=== PATIENT | female | born 1955 | race Caucasian/White ===

== ENCOUNTER → 2016-09-08 | Outpatient (CLI) | payer OTHER, MEDICAID | LOC: RAD 10:02 | PROVIDERS: ATTEND Nurse Practitioner Family | DX: Z12.31 Encounter for screening mammogram for malignant neoplasm of breast (principal) | CPT/HCPCS: 77067 ==

== ENCOUNTER → 2016-10-11 | Outpatient (CLI) | payer OTHER, MEDICAID ==
--- NOTE | 2016-10-11 14:27 | US ---
Examination: Unilateral right diagnostic mammogram and right breast ultrasound. Clinical history: Abnormal screening mammogram. Technique: Additional digital images of the right breast were obtained. Targeted right breast ultras ound was also obtained evaluating the upper medial aspect of the right breast. Comparison: 09/08/2016, 04/06/2009. Findings: The right breast is composed of scattered fibroglandular densities. There is a persistent small kidney-shaped 4 mm mass present in the upper medial aspect of the right breast in the middle depth, which is partially obscured by surrounding fibroglandular tissue, but ap pears to represent a small intramammary lymph node. Targeted right breast ultrasound evaluating the upper medial aspect of the right breast reveals a 7 mm oval, solid appearing, hypoechoic mass with an apparent small echogenic hilum, likely representin g a small intramammary lymph node, seen at the 1 o'clock position, correlating with findings on the mammogram. A followup right diagnostic mammogram and right breast ultrasound is recommended in 6 mon ths to ensure stability of the findings in the right breast. Impression: 1. Probably benign intramammary lymph node at the 1 o'clock position in the right breast, as describ ed above. BI-RADS category 3/III (THREE) - PROBABLY BENIGN FINDING; SHORT INTERVAL FOLLOW-UP SUGGESTED. Recommend a followup right diagnostic mammogram and right breast ultrasound in [address] ability of the findings in the right breast. Diagnostic CAD was utilized and reviewed. * 0 (ZERO) - ASSESSMENT INCOMPLETE; ADDITIONAL IMAGING IS NEEDED. * 0C - ASSESSMENT INCOMPLETE, NEEDS ADDITIONAL IMAGING EVALUATION AND/OR PRIOR MAMMOGRAMS FOR COMPAR SAMINA. * 1/1 (ONE) - NEGATIVE. * 2/II (TWO) - BENIGN FINDINGS. * 3/III (THREE) - PROBABLY BENIGN FINDING; SHORT INTERVAL FOLLOW-UP SUGGESTED. * 4/IV (FOUR) - SUSPICIOUS ABNORMALITY; BIOPSY SHOULD BE CONSIDERED. * 5/V - HIGHLY SUSPICIOUS OF MALIGNANCY; BIOPSY SHOULD BE PERFORMED. * 6/IV - KNOWN BIOPSY PROVEN MALIGNANCY-APPROPRIATE ACTION SHOULD BE TAKEN. A NEGATIVE X-RAY REPORT SHOULD NOT DELAY BIOPSY IF A DOMINANT OR CLINICALLY SUSPICIOUS MASS IS PRESENT; 4 TO 8 PERCENT OF CANCERS ARE NOT IDENTIFIED BY X-RAY. A NEGATIVE REPORT MAY REINFORCE THE CLINICAL IMPRESSION. ADENOSIS AND DENSE BREASTS MAY OBSCURE AN UNDERLYING NEOPLASM. Reported By:
== END ==
LOC: RAD 12:23
PROVIDERS: ATTEND Nurse Practitioner Family
DX: N63 Unspecified lump in breast (principal)
CPT/HCPCS: 76642; 77065

== ENCOUNTER → 2017-05-04 | Outpatient (CLI) | payer OTHER, MEDICAID ==
--- NOTE | 2017-05-04 15:49 | US ---
HISTORY: Six-month follow-up right breast nodule Right breast digital diagnostic mammography with CAD and right breast ultrasound. Comparison: April 06, 2009, September 08, 2016, and October 11, 2016 FINDINGS: Mammogram: ML and spot compression CC and MLO projections of the right breast were obtained. Scatter ed fibroglandular tissue is seen to be present without suspicious interval change. No new or develop ing dominant architectural distortion, mass or clustered microcalcifications can be observed to sugge st malignancy. There is a stable tiny 4 mm nodule noted along the upper medial quadrant. No skin thic kening or nipple retraction is appreciated. No pathological lymphadenopathy can be identified. Ultrasound: Multiple grayscale and color Doppler images of the 1 o'clock position right breast were o btained. Approximately 4 cm from the nipple, there is a vertically oriented 5 mm cystic appearing nod ule with slightly ill-defined borders but without posterior acoustical shadowing or internal Doppler flow favored to represent a complex cyst with internal debris and septation most compatible with a co mplex cyst. Previously described 7 mm nodule could represent the same lesion which actually represent ed a complex cyst as well. Alternatively, findings could reflect a new complex cyst and interval reso lution of the previously described lymph node. IMPRESSION: Probably benign right breast nodule for which an additional six-month follow-up is recom mended. The patient should undergo bilateral mammographic imaging at that time. ACR CATEGORY 3 - probably benign findings; short interval follow-up suggested. Diagnostic CAD was utilized and reviewed. * 0 (ZERO) - ASSESSMENT INCOMPLETE; ADDITIONAL IMAGING IS NEEDED. * 1/ (ONE) - NEGATIVE. * 2/II (TWO) - BENIGN FINDINGS. * 3/III (THREE) - PROBABLY BENIGN FINDING; SHORT INTERVAL FOLLOW-UP SUGGESTED. * 4/IV (FOUR) - SUSPICIOUS ABNORMALITY; BIOPSY SHOULD BE CONSIDERED. * 5/V - HIGHLY SUSPICIOUS OF MALIGNANCY; BIOPSY SHOULD BE PERFORMED. A NEGATIVE X-RAY REPORT SHOULD NOT DELAY BIOPSY IF A DOMINANT OR CLINICALLY SUSPICIOUS MASS IS PRESENT; 4 TO 8 PERCENT OF CANCERS ARE NOT IDENTIFIED BY X-RAY. A NEGA TIVE REPORT MAY REINFORCE THE CLINICAL IMPRESSION. ADENOSIS AND DENSE BREASTS MAY OBSCURE AN UNDERLY ING NEOPLASM. Reported By:
== END ==
LOC: RAD 13:34
PROVIDERS: ATTEND Nurse Practitioner Family
DX: N63.0 Unspecified lump in unspecified breast (principal)
CPT/HCPCS: 76642; 77065

== ENCOUNTER → 2017-07-04 | Outpatient (CLI) | payer OTHER, MEDICAID ==
--- NOTE | 2017-07-04 13:59 | MG ---
HISTORY: Right breast nodule, status post biopsy, check for clip placement Comparison: 05/04/2017 and priors Diagnostic right mammogram FINDINGS: CC and MLO projections of the right breast were obtained. There is a biopsy clip now present at appr oximately the 2 o'clock to 3 o'clock position of the right breast. Adjacent to the clip is a very tin y, partially obscured nodule. No significant architectural distortion, mass or clustered microcalcifi cations can be observed to suggest malignancy. No skin thickening or nipple retraction is appreciate d. No pathological lymphadenopathy can be identified. IMPRESSION: 1. Biopsy clip present at approximately the 2 o'clock to 3 o'clock position of the right breast. Plea se see above discussion ACR CATEGORY 2 - benign findings Bilateral mammogram recommended in September of 2017 Diagnostic CAD was utilized and reviewed. * 0 (ZERO) - ASSESSMENT INCOMPLETE; ADDITIONAL IMAGING IS NEEDED. * 1/ (ONE) - NEGATIVE. * 2/II (TWO) - BENIGN FINDINGS. * 3/III (THREE) - PROBABLY BENIGN FINDING; SHORT INTERVAL FOLLOW-UP SUGGESTED. * 4/IV (FOUR) - SUSPICIOUS ABNORMALITY; BIOPSY SHOULD BE CONSIDERED. * 5/V - HIGHLY SUSPICIOUS OF MALIGNANCY; BIOPSY SHOULD BE PERFORMED. A NEGATIVE X-RAY REPORT SHOULD NOT DELAY BIOPSY IF A DOMINANT OR CLINICALLY SUSPICIOUS MASS IS PRESENT; 4 TO 8 PERCENT OF CANCERS ARE NOT IDENTIFIED BY X-RAY. A NEGA TIVE REPORT MAY REINFORCE THE CLINICAL IMPRESSION. ADENOSIS AND DENSE BREASTS MAY OBSCURE AN UNDERLY ING NEOPLASM. Reported By:
== END ==
LOC: RAD 12:37
PROVIDERS: ATTEND Surgery
DX: N63.10 Unspecified lump in the right breast, unspecified quadrant (principal); Z98.890 Other specified postprocedural states; R92.8 Other abnormal and inconclusive findings on diagnostic imaging of breast
CPT/HCPCS: 77065

== ENCOUNTER → 2017-07-24 | Outpatient (CLI) | payer OTHER, MEDICAID ==
--- NOTE | 2017-07-24 12:13 | RAD ---
History: Left foot and ankle pain Study: Left foot three views Findings: Three views of the left foot demonstrate normal alignment and joint spacing. No fracture or bony destructive process is identified. There is a moderate size plantar calcaneal spur are. Soft ti ssue swelling over the dorsum of the foot in involving the ankle and distal leg is noted. Impression: Soft tissue swelling with no acute osseous abnormality. Reported By:
--- NOTE | 2017-07-24 12:14 | RAD ---
HISTORY: Foot and ankle pain. Status post trauma under Easter weekend Study: Left ankle: Three views Comparison: None Findings: Mild osteopenia is noted. Mild irregularity of both the medial and lateral malleoli is noted suggest ing remote trauma. Moderate soft tissue swelling is noted medially. A tiny osteochondral defect is present involving the medial talar dome. Otherwise the the tibial plafond and talar dome are intact. Mild degenerative changes noted in the ankle joint proper. A moderate size calcaneal spurs noted. Minimal spurring is noted in the midfoot. Mild enthesopathy is noted at the Achilles tendon inserti on. IMPRESSION: 1. Tiny osteochondral defect involving the medial talar dome. 2. Soft tissue swelling along the medial malleolus. 3. No acute bony abnormalities are identified. 4. Degenerative changes noted. Reported By:
== END ==
LOC: RAD 11:35
PROVIDERS: ATTEND Nurse Practitioner Family
DX: M79.672 Pain in left foot (principal); M79.89 Other specified soft tissue disorders
CPT/HCPCS: 73610; 73630

== ENCOUNTER 2020-01-23 16:13 | Inpatient (IN) ==
[~2020-01-23 16:13] MED LIST: DIPRIVAN VIAL ONE; NORCURON INJ 10 MG VIAL ONE; QUELICIN (OR ANECTINE) ONE; VERSED ONE
[2020-01-23] MEDS ORDERED: ACTEMRA 400 MG in NS 100 ML IV 80 ML IV SCH (18:48)
[2020-01-23] MEDS ORDERED: NS 1/2 1,000 ML IV 1,000 ML IV ONE (20:48)
[2020-01-23] MEDS: PULMICORT NEB TX 0.5 MG NEB SCH (21:17)
[2020-01-23] MEDS: DUONEB 0.5 MG/3 MG (3 mL) NEB SCH (21:17)
[2020-01-23] MEDS: NS 1/2 1,000 ML IV 1,000 ML IV SCH (22:00)
[2020-01-23] MEDS: ROBITUSSIN DM PO SCH (22:11)
[2020-01-23] MEDS: VSL#3 PO SCH (23:00)
[2020-01-23] MEDS ORDERED: REMDESIVIR 200 MG in NS 250 ML IV 250 ML IV SCH (23:00)
[2020-01-23] MEDS: TUSSIONEX PENNKINETIC SUSP PO PRN (23:00)
[2020-01-23] MEDS: ZINC SULFATE PO SCH (23:00)
[2020-01-23] MEDS: SOLU-Medrol 40 MG VIAL IVP SCH (23:30)
[2020-01-24] MEDS: LEVAQUIN PREMIX IV 500 MG 500 MG/100 ML BAG IV SCH (02:45)
[2020-01-24] MEDS: SOLU-Medrol 40 MG VIAL IVP SCH ×3 (05:30→21:40)
[2020-01-24 05:37] VITALS: BMI 49.6
[2020-01-24 05:59] LABS: ABG BASE EXCESS 1.4 mmol/L (-2.0-2.0); ABG HCO3 27.2 mmol/L (22-26)
[2020-01-24 06:00] LABS: ABG ALLEN TEST POS
[2020-01-24 06:05] LABS: ALBUMIN 2.7 g/dL (3.4-5.0); BASOPHILS % (AUTO) 0.1 % (0.2-1.0); CALCIUM 8.8 mg/dL (8.5-10.1); CARBON DIOXIDE 27.2 mmol/L (21-32); CREATININE 1.46 mg/dL (0.55-1.02); HEMATOCRIT 43.2 % (36.0-47.0); HEMOGLOBIN 14.2 g/dL (12.0-16.0); LYMPHOCYTES # (AUTO) 0.3 X10^3/uL (1.3-2.9); LYMPHOCYTES % (AUTO) 5.9 % (21.0-51.0); MEAN CORPUSCULAR HEMOGLOBIN 29.3 pg (27.0-34.0); MEAN CORPUSCULAR HGB CONC 32.9 g/dL (33.0-35.0); MEAN CORPUSCULAR VOLUME 88.9 fL (80.0-100.0); MEAN PLATELET VOLUME 8.2 fL (7.4-11.0); MONOCYTES # (AUTO) 0.1 x10^3/uL (0.3-0.8); MONOCYTES % (AUTO) 2.2 % (0.0-13.0); NEUTROPHILS # (AUTO) 5.3 x10^3/uL (2.2-4.8); NEUTROPHILS % (AUTO) 91.8 % (42.0-75.0); PLATELET COUNT 176 X10^3/uL (150.0-450.0); RED BLOOD COUNT 4.86 X10^6/uL (3.5-5.4); RED CELL DISTRIBUTION WIDTH 14.5 % (11.6-16.5); TOTAL PROTEIN 6.9 g/dL (6.4-8.2); WHITE BLOOD COUNT 5.8 X10^3/uL (3.6-10.0)
[2020-01-24 06:06] LABS: COR CA(FOR HYPOALB) 9.8 mg/dL (8.5-10.1)
[2020-01-24 06:34] LABS: BAND NEUTROPHILS % 2 % (0-10); PLATELET MORPHOLOGY COMMENT NORMAL (NORMAL)
[2020-01-24] MEDS ORDERED: ACTEMRA 400 MG in NS 100 ML IV 80 ML IV SCH (09:00)
--- NOTE | 2020-01-24 09:43 | DR.H&P ---
H&P - History & Physical for Day of: H&P Date: 01/23/20 - Chief Complaint Chief Complaint: FEVER, COUGH, SOB, WEAKNESS, NAUSEA - History of Present Illness History of Present Illness: IS A 64 YEAR OLD PATIENT OF [facility]. CHERYL CONSULTED US FOR DIRECT ADMISSION DUE TO PATIENT HAVING SYMPTOMS OF FEVER, PERSISTENT COUGH, SHORTNESS OF BREATH, WEAKNESS, AND NAUSEA. SYMPTOMS STARTED APPROXIMATELY THREE WEEKS PRIOR. SHE TESTED POSITIVE FOR COVID-19 TWO DAYS PRIOR TO ADMISSION. PRIOR TO POSITIVE COVID TEST, PATIENT HAD BEEN TREATED WITH LEVAQUIN 500MG PO DAILY X 10 DAYS, THEN A Z-PACK, MEDROL DOSEPACK, FLONASE, ZOFRAN, AND FIORCET. SHE DENIES IMPROVEMENT IN SYMPTOMS DESPITE COMPLIANCE WITH MEDICATIONS. ON EXAMINATION, AUSCULTATION OF LUNG GAYLE REVEALED SCATTERED WHEEZING THROUGHOUT. HER VITALS ON ADMISSION WERE 98.3-107-31-86%ROOM AIR- 109/59. SHE WAS PLACED ON SUPPLEMENTAL OXYGEN AND HER SATURATIONS DID INCREASE TO 95%. LABS WERE OBTAINED. ABNORMAL LAB VALUES INCLUDE THE FOLLOWING: BUN 27, CREATININE 1.46, FERRITIN 287, CRP 121.30, ALBUMIN 3.1. AN ABG WAS OBTAINED AND REVEALED: PH 7.410, PC02 40, P02 68, HC03 25.4, 02 SAT 93, FI02 21.0. BLOOD AND SPUTUM CULTURES WERE SET UP. A CHEST XRAY WAS OBTAINED AND REVEALED: The trachea is midline. The cardiac silhouette is unremarkable. Interstitial infiltrates are seen in the right upper lobe left mid and left mid lateral lung field suspicious for atypical i.e. viral pneumonia. There is no effusion. The bony thorax is unremarkable. SHE WAS STARTED ON 1/2NS AT [facility], LEVAQUIN 500MG IV DAILY, REMDESIVIR 200MG IV X 1 DOSE, THEN 100MG IV DAILY, DUONEBS QID, PULMICORT NEBS BID, TUSSIONEX 5ML PO Q12H PRN, ROBITUSSIN DM 10 ML PO QID, PROBIOTICS DAILY, SOLU-MEDROL 80MG IV Q8H, ZINC 220MG PO DAILY. SHE RECEIVED ACTEMRA 400MG IV X 1 DOSE. SHE WAS STARTED ON SUPPLEMENTAL OXYGEN VIA VENTI-MASK. OTHERWISE, WE PLAN TO FOLLOW UP WITH AM LABS AND CHEST XRAY AND CONTINUE TO MONITOR. TIME SPENT ON CLINICAL ASSESSMENT, REVIEWING LABS AND IMAGING, DECISION MAKING, AND DOCUMENTATION GREATER THAN 74 MINUTES. - Past Medical History Past Medical History: Anxiety, Arthritis, Gout, Hypertension - Past Surgical History Surgical History: Ortho Surgery, Tonsillectomy - Family History Family Medical History: Diabetes Mellitus, Coronary Artery Disease, Hypertension - Social History Does patient currently use any type of tobacco product: No Have you used tobacco products in the last 12 months: No Does any household member use tobacco: No Alcohol Use: None Drug Use: None - Medications Home Medications: Penicillins Allergy (Verified 01/23/20 20:30) Sulfa (Sulfonamide Antibiotics) [SULFA] Allergy (Verified 01/23/20 20:30) - Review of Systems Constitutional: Fever, Weakness Eyes: No Symptoms Reported ENT: No Symptoms Reported Respiratory: See HPI, Cough, Shortness of Breath, Wheezing Cardiovascular: No Symptoms Reported Gastrointestinal: No Symptoms Reported Genitourinary: No Symptoms Reported Musculoskeletal: No Symptoms Reported Skin: No Symptoms Reported Neurological: Weakness - Physical Exam Vital Signs: Temperature 98.8 F Pulse Rate 87 Respiratory Rate 35 Blood Pressure 140/70 O2 Sat by Pulse Oximetry 92 Oriented: Normal Eyes: Normal Ear: Normal Nose: Normal Throat: Normal Respiratory: Diminished Throughout, Wheezes Throughout Cardiovascular: Normal : Normal Auscultation: Bowel Sounds: Normal Palpation: Normal Tenderness: Normal Skin: Normal Musculoskeletal: Normal Psychiatric: Normal Mood Description: Calm Affect: Normal Speech Pattern: Clear - Assessment/Plan (1) Pneumonia Qualifiers: Pneumonia type: due to unspecified organism Laterality: unspecified laterality Lung location: unspecified part of lung Qualified Code(s): J18.9 - Pneumonia, unspecified organism Status: Acute Plan: ADMIT, 1/2NS AT [facility], LEVAQUIN 500MG IV DAILY, REMDESIVIR 200MG IV X 1 DOSE, THEN 100MG IV DAILY, DUONEBS QID, PULMICORT NEBS BID, TUSSIONEX 5ML PO Q12H PRN, ROBITUSSIN DM 10 ML PO QID, PROBIOTICS DAILY, SOLU-MEDROL 80MG IV Q8H, ZINC 220MG PO DAILY. SHE RECEIVED ACTEMRA 400MG IV X 1 DOSE (2) COVID-19 Status: Acute - Allergies Allergies/Adverse Reactions: Allergies Allergy/AdvReac Type Severity Reaction Status Date / Time Penicillins Allergy Verified 01/23/20 20:30 Sulfa (Sulfonamide Allergy Verified 01/23/20 20:30 Antibiotics) [SULFA]
[2020-01-24] MEDS: DUONEB 0.5 MG/3 MG (3 mL) NEB SCH ×4 (09:50→21:50)
[2020-01-24] MEDS: PULMICORT NEB TX 0.5 MG NEB SCH ×2 (09:50→21:50)
[2020-01-24] MEDS: ROBITUSSIN DM PO SCH ×4 (09:54→21:40)
[2020-01-24] MEDS: NS 1/2 1,000 ML IV 1,000 ML IV SCH ×2 (09:54→22:00)
[2020-01-24] MEDS: VSL#3 PO SCH (09:54)
[2020-01-24] MEDS: ZINC SULFATE PO SCH (09:55)
[2020-01-24 10:27] LABS: CKMB % 0.7 % (<4); CREATINE KINASE 140 Units/L (26-192); TROPONIN I < 0.02 ng/mL (0-1.5)
[2020-01-24] MEDS ORDERED: PHENERGAN SYRUP PLAIN 6.25MG/5ML PO PRN (10:54)
[2020-01-24] MEDS: PROTONIX TAB 40 MG PO SCH (11:53)
[2020-01-24] MEDS: ZESTRIL TAB 10 MG PO SCH (11:53)
--- NOTE | 2020-01-24 12:33 | RAD ---
HISTORYSOBSTUDYCHEST, 1 VIEWCOMPARISONTwo-view chest January 23, 2020.FINDINGSThe trachea is midline. The cardiac silhouette is unremarkable. The interstitial infiltrate in the right upper lobe persists with mild increase in the density is well as volume loss in the right upper lobe. There is also patchy infiltrate in the left lateral lower lung field. There is no significant change when compared to yesterdays study. The bony thorax is unremarkable.IMPRESSIONBilateral patchy infiltrates right upper lobe and peripherally in the left lower lobe suspicious for atypical pneumonia. There is no significant interval change compared to yesterday study.Electronically signed by: DONTRELL WILSON (Jan 24, 2020 12:30:58)
[2020-01-24] MEDS: REMDESIVIR 100 MG in NS 250 ML IV 250 ML IV SCH (21:00)
[2020-01-24] MEDS: TUSSIONEX PENNKINETIC SUSP PO PRN (21:40)
[2020-01-24] MEDS: LUMIGAN OPHTH AFFEYE SCH (21:40)
[2020-01-25] MEDS: NORCO 5/325 MG TAB PO PRN (01:04)
[2020-01-25] MEDS: LEVAQUIN PREMIX IV 500 MG 500 MG/100 ML BAG IV SCH (03:30)
[2020-01-25] MEDS ORDERED: NS 1/2 1,000 ML IV 1,000 ML IV ONE (03:47)
[2020-01-25] MEDS: NS 1/2 1,000 ML IV 1,000 ML IV SCH ×2 (04:50→13:54)
[2020-01-25 05:23] LABS: BASOPHILS % (AUTO) 0 % (0.2-1.0); HEMATOCRIT 43.7 % (36.0-47.0); LYMPHOCYTES # (AUTO) 0.4 X10^3/uL (1.3-2.9); LYMPHOCYTES % (AUTO) 5.8 % (21.0-51.0); MEAN CORPUSCULAR HEMOGLOBIN 28.7 pg (27.0-34.0); MEAN CORPUSCULAR VOLUME 89.7 fL (80.0-100.0); MEAN PLATELET VOLUME 8.3 fL (7.4-11.0); MONOCYTES # (AUTO) 0.4 x10^3/uL (0.3-0.8); MONOCYTES % (AUTO) 5.8 % (0.0-13.0); NEUTROPHILS # (AUTO) 6.3 x10^3/uL (2.2-4.8); NEUTROPHILS % (AUTO) 88.4 % (42.0-75.0); PLATELET COUNT 186 X10^3/uL (150.0-450.0); RED BLOOD COUNT 4.88 X10^6/uL (3.5-5.4); RED CELL DISTRIBUTION WIDTH 14.8 % (11.6-16.5); WHITE BLOOD COUNT 7.1 X10^3/uL (3.6-10.0)
[2020-01-25 05:37] LABS: ALBUMIN 2.7 g/dL (3.4-5.0); CALCIUM 8.9 mg/dL (8.5-10.1); CARBON DIOXIDE 25.2 mmol/L (21-32); COR CA(FOR HYPOALB) 9.9 mg/dL (8.5-10.1); CREATININE 1.43 mg/dL (0.55-1.02); TOTAL PROTEIN 7.4 g/dL (6.4-8.2)
[2020-01-25] MEDS: SOLU-Medrol 40 MG VIAL IVP SCH ×3 (06:05→21:25)
--- NOTE | 2020-01-25 06:14 | RAD ---
HISTORYSOB, COVID-19, PNEUMONIASTUDYCHEST, 1 VIEWCOMPARISONOne day prior.TECHNIQUEAP view of the chestFINDINGSCardiac silhouette stably enlarged. Worsened bilateral airspace disease. No pleural effusion or pneumothorax.IMPRESSIONWorsened bilateral airspace disease consistent with covid 19 which has an upper lobe predominance.Electronically signed by: Lui Connelly (Jan 25, 2020 06:12:56)
[2020-01-25] MEDS: PROTONIX TAB 40 MG PO SCH (09:26)
[2020-01-25] MEDS: ROBITUSSIN DM PO SCH ×4 (09:26→21:25)
[2020-01-25] MEDS: ZINC SULFATE PO SCH (09:27)
[2020-01-25] MEDS: ZESTRIL TAB 10 MG PO SCH (09:27)
[2020-01-25] MEDS: VSL#3 PO SCH (09:27)
[2020-01-25] MEDS: DUONEB 0.5 MG/3 MG (3 mL) NEB SCH ×4 (09:50→21:02)
[2020-01-25] MEDS: PULMICORT NEB TX 0.5 MG NEB SCH ×2 (09:50→21:02)
--- NOTE | 2020-01-25 11:28 | PCM.PROG ---
Progress Note Progress Note for Day of Date of Exam: 01/25/20 Subjective Subjective: PT IS A 64 Y/O F ADMITTED FOR COVID19 PNEUMONIA(POSITIVE 01/20) AND HYPOXIA. THIS MORNING SHE IS SITTING IN CHAIR ON 3L NC. SHE REPORTS BEING ACTIVE THIS MORNING IN HER ROOM. SHE STATES THAT THE STEROIDS SHE IS RECEIVING IS MAKING HER VERY ANXIOUS. LABS/IMAGING: WBC 7.1, HGB 14, PLT 186, NA 139, K 4.1, CR 1.43, GLUC 140. CRP 134>80, CXR: Worsened bilateral airspace disease consistent with covid 19 which has an upper lobe predominance. TREATMENT COURSE INCLUDES:1/2NS AT [facility], LEVAQUIN 500MG IV DAILY, REMDESIVIR 200MG IV X 1 DOSE, THEN 100MG IV DAILY, DUONEBS QID, PULMICORT NEBS BID, TUSSIONEX 5ML PO Q12H PRN, ROBITUSSIN DM 10 ML PO QID, PROBIOTICS DAILY, SOLU-MEDROL 80MG IV Q8H, ZINC 2 20MG PO DAILY. SHE RECEIVED ACTEMRA 400MG IV X 1 DOSE. WILL CONTINUE TREATMENT AND ADD ON XANAX PRN FOR ANXIETY. CONTINUE TO MONITOR AND FOLLOW UP LABS/IMAGING IN THE MORNING. Past Medical Family Social History Past Med/Fam/Surg Hx: No changes since H&P Allergies: Allergies Penicillins Allergy (Verified 01/23/20 20:30) Sulfa (Sulfonamide Antibiotics) [SULFA] Allergy (Verified 01/23/20 20:30) Review of Systems ROS: No change since H&P Vital Signs and I&O's Vital Signs: Temperature 97.2 F Pulse Rate 96 Respiratory Rate 26 Blood Pressure 130/65 O2 Sat by Pulse Oximetry 91 Intake and Output: Intake & Output 01/22/20 01/23/20 01/24/20 01/25/20 23:59 23:59 23:59 23:59 Intake Total 260 / 260 4710 / 4710 647 / 647 Balance 260 / 260 4710 / 4710 647 / 647 Physical Exam Oriented: Normal Eyes: Normal Ear: Normal Nose: Normal Throat: Normal Respiratory: Diminished Cardiovascular: Normal : Normal Auscultation: Bowel Sounds: Normal Tenderness: Normal Skin: Normal Musculoskeletal: Normal Psychiatric: Normal Mood Description: Calm Affect: Normal Speech Pattern: Clear and Appropriate Laboratory and Diagnostics Result Diagrams: 01/25/20 04:45 01/25/20 04:45 Labs: 01/23/20 21:18 Sputum - Expectorated Sputum Sputum Culture - Final 01/23/20 21:18 Sputum - Expectorated Sputum - Final 01/23/20 19:25 Blood Blood Culture - Preliminary 01/23/20 19:15 Blood Blood Culture - Preliminary Laboratory WBC 7.1 X10^3/uL (3.6-10.0) 01/25/20 04:45 RBC 4.88 X10^6/uL (3.5-5.4) 01/25/20 04:45 Hgb 14.0 g/dL (12.0-16.0) 01/25/20 04:45 Hct 43.7 % (36.0-47.0) 01/25/20 04:45 MCV 89.7 fL (80.0-100.0) 01/25/20 04:45 MCH 28.7 pg (27.0-34.0) 01/25/20 04:45 MCHC 32.0 g/dL (33.0-35.0) L 01/25/20 04:45 RDW 14.8 % (11.6-16.5) 01/25/20 04:45 Plt Count 186 X10^3/uL (150.0-450.0) 01/25/20 04:45 Plt Count Comment Adequate (ADEQUATE) 01/24/20 04:50 MPV 8.3 fL (7.4-11.0) 01/25/20 04:45 Neut % (Auto) 88.4 % (42.0-75.0) H 01/25/20 04:45 Lymph % (Auto) 5.8 % (21.0-51.0) L 01/25/20 04:45 Carroll % (Auto) 5.8 % (0.0-13.0) 01/25/20 04:45 Eos % (Auto) 0.0 % (0.9-2.9) L 01/25/20 04:45 Baso % (Auto) 0 % (0.2-1.0) L 01/25/20 04:45 Neut # (Auto) 6.3 x10^3/uL (2.2-4.8) H 01/25/20 04:45 Lymph # (Auto) 0.4 X10^3/uL (1.3-2.9) L 01/25/20 04:45 Carroll # (Auto) 0.4 x10^3/uL (0.3-0.8) 01/25/20 04:45 Eos # (Auto) 0.0 x10^3/uL (0.0-0.2) 01/25/20 04:45 Baso # (Auto) 0.0 X10^3/uL (0.0-0.1) 01/25/20 04:45 Absolute Nucleated RBC 0.1 /100WBC 01/25/20 04:45 Total Counted 100 01/24/20 04:50 Neutrophils % (Manual) 93 % (39-76) H 01/24/20 04:50 Band Neutrophils % 2 % (0-10) 01/24/20 04:50 Lymphocytes % (Manual) 5 % (13-43) L 01/24/20 04:50 Plt Morphology Comment Normal (NORMAL) 01/24/20 04:50 RBC Morphology Normal (NORMAL) 01/24/20 04:50 Sample Site Lrad 01/24/20 05:56 ABG pH 7.370 (7.35-7.45) 01/24/20 05:56 ABG pCO2 47.0 mmHg (35.0-45.0) H 01/24/20 05:56 ABG pO2 73.0 mmHg (80.0-100.0) L 01/24/20 05:56 ABG HCO3 27.2 mmol/L (22-26) H 01/24/20 05:56 ABG O2 Saturation 94.0 % (90-100) 01/24/20 05:56 ABG Base Excess 1.4 mmol/L (-2.0-2.0) 01/24/20 05:56 Durga Test Pos 01/24/20 05:56 A-a Gradient 118.0 mmHg 01/24/20 05:56 FiO2 35.0 01/24/20 05:56 Blood Gas Comments Janessa abg well-mtf 01/24/20 05:56 Sodium 139 mmol/L (136-145) 01/25/20 04:45 Corrected Sodium 140 mmol/L (136-145) 01/25/20 04:45 Potassium 4.1 mmol/L (3.5-5.1) 01/25/20 04:45 Chloride 103 mmol/L (98-107) 01/25/20 04:45 Carbon Dioxide 25.2 mmol/L (21-32) 01/25/20 04:45 BUN 32 mg/dL (7-18) H 01/25/20 04:45 Creatinine 1.43 mg/dL (0.55-1.02) H 01/25/20 04:45 Est GFR (MDRD) Af Amer 47 (>60) L 01/25/20 04:45 Est GFR (MDRD) Non-Af 39 (>60) L 01/25/20 04:45 Glucose 140 mg/dL (65-99) H 01/25/20 04:45 Calcium 8.9 mg/dL (8.5-10.1) 01/25/20 04:45 Corrected Calcium 9.9 mg/dL (8.5-10.1) 01/25/20 04:45 Ferritin 524 ng/mL (8-252) H 01/25/20 04:45 Total Bilirubin 0.20 mg/dL (0.2-1.0) 01/25/20 04:45 AST 30 Units/L (15-37) 01/25/20 04:45 ALT 25 Units/L (12-78) 01/25/20 04:45 Alkaline Phosphatase 85 Units/L (46-116) 01/25/20 04:45 Creatine Kinase 140 Units/L (26-192) 01/24/20 05:10 CK-MB (CK-2) 1.0 ng/mL (0-4.0) 01/24/20 05:10 CK/CKMB % Calc 0.7 % (<4) 01/24/20 05:10 Troponin I < 0.02 ng/mL (0-1.5) 01/24/20 05:10 C-Reactive Protein 80.30 mg/L (0-3.0) H 01/25/20 04:45 B-Natriuretic Peptide 14.9 pg/mL (0-79) 01/24/20 05:10 Total Protein 7.4 g/dL (6.4-8.2) 01/25/20 04:45 Albumin 2.7 g/dL (3.4-5.0) L 01/25/20 04:45 Globulin 4.7 g/dL (2.5-4.5) H 01/25/20 04:45 Albumin/Globulin Ratio 0.6 Ratio (1.1-2.1) L 01/25/20 04:45 Plan (1) Pneumonia: Status: Acute Qualifiers: Laterality: unspecified laterality Lung location: unspecified part of lung Pneumonia type: due to unspecified organism Qualified Code(s): J18.9 - Pneumonia, unspecified organism Plan: ADMIT, 1/2NS AT [facility], LEVAQUIN 500MG IV DAILY, REMDESIVIR 200MG IV X 1 DOSE, THEN 100MG IV DAILY, DUONEBS QID, PULMICORT NEBS BID, TUSSIONEX 5ML PO Q12H PRN, ROBITUSSIN DM 10 ML PO QID, PROBIOTICS DAILY, SOLU-MEDROL 80MG IV Q8H, ZINC 220MG PO DAILY. SHE RECEIVED ACTEMRA 400MG IV X 1 DOSE (2) COVID-19: Status: Acute
[2020-01-25] MEDS: XANAX PO PRN (14:17)
[2020-01-25] MEDS: REMDESIVIR 100 MG in NS 250 ML IV 250 ML IV SCH (20:30)
[2020-01-25] MEDS: LUMIGAN OPHTH AFFEYE SCH (21:25)
[2020-01-26] MEDS: LEVAQUIN PREMIX IV 500 MG 500 MG/100 ML BAG IV SCH (00:34)
[2020-01-26] MEDS: NS 1/2 1,000 ML IV 1,000 ML IV SCH ×2 (01:50→17:13)
[2020-01-26] MEDS: SOLU-Medrol 40 MG VIAL IVP SCH ×3 (05:07→21:08)
[2020-01-26] MEDS: XANAX PO PRN ×2 (05:35→21:11)
--- NOTE | 2020-01-26 06:42 | RAD ---
HISTORYSOBSTUDYPortable AP [id number] heart size. Persistent but improved bilateral airspace disease. No new areas of consolidation, pneumothorax or pleural fluid.IMPRESSIONSlight interval improvement in aeration of the lungs with decreasing infiltrates/pneumonia.Electronically signed by: NATHANIEL ALMEIDA (Jan 26, 2020 06:40:33)
[2020-01-26 06:43] LABS: BASOPHILS % (AUTO) 0.2 % (0.2-1.0); HEMATOCRIT 44.9 % (36.0-47.0); HEMOGLOBIN 14.6 g/dL (12.0-16.0); LYMPHOCYTES # (AUTO) 0.3 X10^3/uL (1.3-2.9); MEAN CORPUSCULAR HEMOGLOBIN 29.1 pg (27.0-34.0); MEAN CORPUSCULAR HGB CONC 32.6 g/dL (33.0-35.0); MEAN CORPUSCULAR VOLUME 89.1 fL (80.0-100.0); MEAN PLATELET VOLUME 8.1 fL (7.4-11.0); MONOCYTES # (AUTO) 0.3 x10^3/uL (0.3-0.8); MONOCYTES % (AUTO) 3.3 % (0.0-13.0); NEUTROPHILS # (AUTO) 9.7 x10^3/uL (2.2-4.8); NEUTROPHILS % (AUTO) 93.5 % (42.0-75.0); PLATELET COUNT 192 X10^3/uL (150.0-450.0); RED BLOOD COUNT 5.04 X10^6/uL (3.5-5.4); RED CELL DISTRIBUTION WIDTH 14.6 % (11.6-16.5); WHITE BLOOD COUNT 10.4 X10^3/uL (3.6-10.0)
[2020-01-26 06:54] LABS: ALANINE AMINOTRANSFERASE 27 Units/L (12-78); ALBUMIN 2.9 g/dL (3.4-5.0); ALKALINE PHOSPHATASE 82 Units/L (46-116); ASPARTATE AMINO TRANSFERASE 46 Units/L (15-37); BLOOD UREA NITROGEN 27 mg/dL (7-18); CALCIUM 9.4 mg/dL (8.5-10.1); CARBON DIOXIDE 26.4 mmol/L (21-32); CHLORIDE 104 mmol/L (98-107); COR CA(FOR HYPOALB) 10.3 mg/dL (8.5-10.1); COR NA(FOR HYPERGLY) 140 mmol/L (136-145); CREATININE 1.16 mg/dL (0.55-1.02); SODIUM 139 mmol/L (136-145); TOTAL PROTEIN 7.5 g/dL (6.4-8.2); eGFR NON BLACK RACES 50 (>60)
[2020-01-26 07:21] LABS: BAND NEUTROPHILS % 6 % (0-10)
[2020-01-26 07:22] LABS: PLATELET MORPHOLOGY COMMENT NORMAL (NORMAL)
[2020-01-26] MEDS: ROBITUSSIN DM PO SCH ×4 (09:30→20:52)
[2020-01-26] MEDS: VSL#3 PO SCH (09:30)
[2020-01-26] MEDS: PROTONIX TAB 40 MG PO SCH (09:30)
[2020-01-26] MEDS: ZESTRIL TAB 10 MG PO SCH (09:30)
[2020-01-26] MEDS: ZINC SULFATE PO SCH (09:30)
[2020-01-26] MEDS: DUONEB 0.5 MG/3 MG (3 mL) NEB SCH ×4 (09:46→20:45)
[2020-01-26] MEDS: PULMICORT NEB TX 0.5 MG NEB SCH ×2 (09:46→20:45)
--- NOTE | 2020-01-26 10:19 | PCM.PROG ---
Progress Note Progress Note for Day of Date of Exam: 01/26/20 Subjective Subjective: PT IS A 64 Y/O F ADMITTED FOR COVID19 PNEUMONIA(POSITIVE 01/20) AND HYPOXIA. SHE IS RESTING COMFORTABLY IN CHAIR THIS MORNING. SHE REPORTS FEELING A LITTLE SHORT OF BREATH OVERNIGHT AND WITH AMBULATION. OVERNIGHT HER O2 SAT DID DROP TO MID 80S AND SHE WAS PLACED ON VENTURI MASK. THIS MORNING SHE IS BACK ON 4L NC. LABS/IMAGING: WBC 10.4, HGB 14.6, PLT 192, NA 139, K 4.7, CR 1.16, GLUC 139. CRP 80>37, CXR: Slight interval improvement in aeration of the lungs with decreasing infiltrates/pneumonia. TREATMENT COURSE INCLUDES:1/2NS AT [facility], LEVAQUIN 500MG IV DAILY, REMDESIVIR 200MG IV X 1 DOSE, THEN 100MG IV DAILY, DUONEBS QID, PULMICORT NEBS BID, TUSSIONEX 5ML PO Q12H PRN, ROBITUSSIN DM 10 ML PO QID, PROBIOTICS DAILY, SOLU-MEDROL 80MG IV Q8H, ZINC 220MG PO DAILY. SHE RECEIVED ACTEMRA 400MG IV X 1 DOSE. WEAN SUPPLEMENTAL O2 TOLERATED. CONTINUE TO MONITOR AND FOLLOW UP LABS/IMAGING IN THE MORNING. Past Medical Family Social History Past Med/Fam/Surg Hx: No changes since H&P Allergies: Allergies Penicillins Allergy (Verified 01/23/20 20:30) Sulfa (Sulfonamide Antibiotics) [SULFA] Allergy (Verified 01/23/20 20:30) Review of Systems ROS: No change since H&P Vital Signs and I&O's Vital Signs: Temperature 98 F Pulse Rate 93 Respiratory Rate 26 Blood Pressure 160/71 O2 Sat by Pulse Oximetry 91 Intake and Output: Intake & Output 01/23/20 01/24/20 01/25/20 01/26/20 23:59 23:59 23:59 23:59 Intake Total 260 / 260 4710 / 4710 2187 / 2187 660 / 660 Balance 260 / 260 4710 / 4710 2187 / 2187 660 / 660 Physical Exam Oriented: Normal Eyes: Normal Ear: Normal Nose: Normal Throat: Normal Respiratory: Diminished Cardiovascular: Normal : Normal Auscultation: Bowel Sounds: Normal Tenderness: Normal Skin: Normal Musculoskeletal: Normal Psychiatric: Normal Mood Description: Calm Affect: Normal Speech Pattern: Clear and Appropriate Laboratory and Diagnostics Result Diagrams: 01/26/20 06:23 01/26/20 06:23 Labs: 01/23/20 21:18 Sputum - Expectorated Sputum Sputum Culture - Final 01/23/20 21:18 Sputum - Expectorated Sputum - Final 01/23/20 19:25 Blood Blood Culture - Preliminary 01/23/20 19:15 Blood Blood Culture - Preliminary Laboratory WBC 10.4 X10^3/uL (3.6-10.0) H 01/26/20 06:23 RBC 5.04 X10^6/uL (3.5-5.4) 01/26/20 06:23 Hgb 14.6 g/dL (12.0-16.0) 01/26/20 06:23 Hct 44.9 % (36.0-47.0) 01/26/20 06:23 MCV 89.1 fL (80.0-100.0) 01/26/20 06:23 MCH 29.1 pg (27.0-34.0) 01/26/20 06:23 MCHC 32.6 g/dL (33.0-35.0) L 01/26/20 06:23 RDW 14.6 % (11.6-16.5) 01/26/20 06:23 Plt Count 192 X10^3/uL (150.0-450.0) 01/26/20 06:23 Plt Count Comment Adequate (ADEQUATE) 01/26/20 06:23 MPV 8.1 fL (7.4-11.0) 01/26/20 06:23 Neut % (Auto) 93.5 % (42.0-75.0) H 01/26/20 06:23 Lymph % (Auto) 3.0 % (21.0-51.0) L 01/26/20 06:23 [place] % (Auto) 3.3 % (0.0-13.0) 01/26/20 06:23 Eos % (Auto) 0.0 % (0.9-2.9) L 01/26/20 06:23 Baso % (Auto) 0.2 % (0.2-1.0) 01/26/20 06:23 Neut # (Auto) 9.7 x10^3/uL (2.2-4.8) H 01/26/20 06:23 Lymph # (Auto) 0.3 X10^3/uL (1.3-2.9) L 01/26/20 06:23 [place] # (Auto) 0.3 x10^3/uL (0.3-0.8) 01/26/20 06:23 Eos # (Auto) 0.0 x10^3/uL (0.0-0.2) 01/26/20 06:23 Baso # (Auto) 0.0 X10^3/uL (0.0-0.1) 01/26/20 06:23 Absolute Nucleated RBC 0.1 /100WBC 01/26/20 06:23 Total Counted 100 01/26/20 06:23 Neutrophils % (Manual) 86 % (39-76) H 01/26/20 06:23 Band Neutrophils % 6 % (0-10) 01/26/20 06:23 Lymphocytes % (Manual) 5 % (13-43) L 01/26/20 06:23 Monocytes % (Manual) 3 % (4-9) L 01/26/20 06:23 Nucleated RBCs 1 01/26/20 06:23 Plt Morphology Comment Normal (NORMAL) 01/26/20 06:23 RBC Morphology Normal (NORMAL) 01/26/20 06:23 Sample Site Lrad 01/24/20 05:56 ABG pH 7.370 (7.35-7.45) 01/24/20 05:56 ABG pCO2 47.0 mmHg (35.0-45.0) H 01/24/20 05:56 ABG pO2 73.0 mmHg (80.0-100.0) L 01/24/20 05:56 ABG HCO3 27.2 mmol/L (22-26) H 01/24/20 05:56 ABG O2 Saturation 94.0 % (90-100) 01/24/20 05:56 ABG Base Excess 1.4 mmol/L (-2.0-2.0) 01/24/20 05:56 Durga Test Pos 01/24/20 05:56 A-a Gradient 118.0 mmHg 01/24/20 05:56 FiO2 35.0 01/24/20 05:56 Blood Gas Comments Janessa abg well-mtf 01/24/20 05:56 Sodium 139 mmol/L (136-145) 01/26/20 06:23 Corrected Sodium 140 mmol/L (136-145) 01/26/20 06:23 Potassium 4.7 mmol/L (3.5-5.1) 01/26/20 06:23 Chloride 104 mmol/L (98-107) 01/26/20 06:23 Carbon Dioxide 26.4 mmol/L (21-32) 01/26/20 06:23 BUN 27 mg/dL (7-18) H 01/26/20 06:23 Creatinine 1.16 mg/dL (0.55-1.02) H 01/26/20 06:23 Est GFR (MDRD) Af Amer > 60 (>60) 01/26/20 06:23 Est GFR (MDRD) Non-Af 50 (>60) L 01/26/20 06:23 Glucose 139 mg/dL (65-99) H 01/26/20 06:23 Calcium 9.4 mg/dL (8.5-10.1) 01/26/20 06:23 Corrected Calcium 10.3 mg/dL (8.5-10.1) H 01/26/20 06:23 Ferritin 706 ng/mL (8-252) H 01/26/20 06:23 Total Bilirubin 0.20 mg/dL (0.2-1.0) 01/26/20 06:23 AST 46 Units/L (15-37) H 01/26/20 06:23 ALT 27 Units/L (12-78) 01/26/20 06:23 Alkaline Phosphatase 82 Units/L (46-116) 01/26/20 06:23 Creatine Kinase 140 Units/L (26-192) 01/24/20 05:10 CK-MB (CK-2) 1.0 ng/mL (0-4.0) 01/24/20 05:10 CK/CKMB % Calc 0.7 % (<4) 01/24/20 05:10 Troponin I < 0.02 ng/mL (0-1.5) 01/24/20 05:10 C-Reactive Protein 37.90 mg/L (0-3.0) H 01/26/20 06:23 B-Natriuretic Peptide 14.9 pg/mL (0-79) 01/24/20 05:10 Total Protein 7.5 g/dL (6.4-8.2) 01/26/20 06:23 Albumin 2.9 g/dL (3.4-5.0) L 01/26/20 06:23 Globulin 4.6 g/dL (2.5-4.5) H 01/26/20 06:23 Albumin/Globulin Ratio 0.6 Ratio (1.1-2.1) L 01/26/20 06:23 Plan (1) Pneumonia: Status: Acute Qualifiers: Laterality: unspecified laterality Lung location: unspecified part of lung Pneumonia type: due to unspecified organism Qualified Code(s): J18.9 - Pneumonia, unspecified organism Plan: ADMIT, 1/2NS AT [facility], LEVAQUIN 500MG IV DAILY, REMDESIVIR 200MG IV X 1 DOSE, THEN 100MG IV DAILY, DUONEBS QID, PULMICORT NEBS BID, TUSSIONEX 5ML PO Q12H PRN, ROBITUSSIN DM 10 ML PO QID, PROBIOTICS DAILY, SOLU-MEDROL 80MG IV Q8H, ZINC 220MG PO DAILY. SHE RECEIVED ACTEMRA 400MG IV X 1 DOSE (2) COVID-19: Status: Acute
[2020-01-26] MEDS: ZOFRAN TAB 4 MG PO PRN (20:30)
[2020-01-26] MEDS: REMDESIVIR 100 MG in NS 250 ML IV 250 ML IV SCH (20:50)
[2020-01-26] MEDS: LUMIGAN OPHTH AFFEYE SCH (20:52)
[2020-01-26] MEDS: FIORICET TAB PO PRN (21:08)
[2020-01-26] MEDS: TUSSIONEX PENNKINETIC SUSP PO PRN (22:28)
[2020-01-26] MEDS ORDERED: NS 1/2 1,000 ML IV 1,000 ML IV ONE (23:37)
[2020-01-27] MEDS: LEVAQUIN PREMIX IV 500 MG 500 MG/100 ML BAG IV SCH (00:02)
[2020-01-27] MEDS: ROBITUSSIN DM PO SCH ×5 (02:41→20:26)
[2020-01-27 04:05] LABS: ABG ALLEN TEST POS; ABG BASE EXCESS 6.7 mmol/L (-2.0-2.0); ABG HCO3 33.9 mmol/L (22-26)
[2020-01-27] MEDS: NORCO 5/325 MG TAB PO PRN (04:42)
[2020-01-27] MEDS: ZOFRAN TAB 4 MG PO PRN (04:50)
[2020-01-27] MEDS: SOLU-Medrol 40 MG VIAL IVP SCH ×3 (05:05→21:07)
[2020-01-27 05:26] LABS: BASOPHILS % (AUTO) 0.1 % (0.2-1.0); HEMATOCRIT 43.3 % (36.0-47.0); HEMOGLOBIN 14.1 g/dL (12.0-16.0); LYMPHOCYTES # (AUTO) 0.4 X10^3/uL (1.3-2.9); LYMPHOCYTES % (AUTO) 3.9 % (21.0-51.0); MEAN CORPUSCULAR HGB CONC 32.6 g/dL (33.0-35.0); MEAN CORPUSCULAR VOLUME 89.1 fL (80.0-100.0); MEAN PLATELET VOLUME 8.4 fL (7.4-11.0); MONOCYTES # (AUTO) 0.4 x10^3/uL (0.3-0.8); NEUTROPHILS # (AUTO) 8.8 x10^3/uL (2.2-4.8); PLATELET COUNT 178 X10^3/uL (150.0-450.0); RED BLOOD COUNT 4.86 X10^6/uL (3.5-5.4); RED CELL DISTRIBUTION WIDTH 14.5 % (11.6-16.5); WHITE BLOOD COUNT 9.6 X10^3/uL (3.6-10.0)
--- NOTE | 2020-01-27 05:40 | RAD ---
HISTORYSOBSTUDYCHEST, 1 [id number]/25/2020FINDINGSThe trachea is midline. The cardiac silhouette is enlarged.. Bilateral airspace disease unchanged. No pleural effusion or pneumothorax.. The bony thorax is unremarkable.IMPRESSIONStable portable chestElectronically signed by: Dru Mercado (Jan 27, 2020 05:39:30)
[2020-01-27 05:47] LABS: ALBUMIN 2.7 g/dL (3.4-5.0); CALCIUM 8.8 mg/dL (8.5-10.1); CARBON DIOXIDE 32.1 mmol/L (21-32); COR CA(FOR HYPOALB) 9.8 mg/dL (8.5-10.1); CREATININE 1.24 mg/dL (0.55-1.02); TOTAL PROTEIN 6.8 g/dL (6.4-8.2)
[2020-01-27 05:54] LABS: BAND NEUTROPHILS % 2 % (0-10); PLATELET MORPHOLOGY COMMENT NORMAL (NORMAL)
[2020-01-27] MEDS: NS 1/2 1,000 ML IV 1,000 ML IV SCH ×3 (07:43→20:32)
[2020-01-27] MEDS: PULMICORT NEB TX 0.5 MG NEB SCH ×2 (08:20→21:27)
[2020-01-27] MEDS: DUONEB 0.5 MG/3 MG (3 mL) NEB SCH ×4 (08:20→21:27)
[2020-01-27] MEDS: VSL#3 PO SCH (08:52)
[2020-01-27] MEDS: ZINC SULFATE PO SCH (08:59)
[2020-01-27] MEDS: PROTONIX TAB 40 MG PO SCH (09:00)
[2020-01-27] MEDS: ZESTRIL TAB 10 MG PO SCH (09:00)
[2020-01-27] MEDS: XANAX PO PRN ×2 (09:04→20:27)
--- NOTE | 2020-01-27 10:55 | PCM.PROG ---
Progress Note - Progress Note for Day of Date of Exam: 01/27/20 - Subjective Subjective: IS BEING TREATED FOR PNEUMONIA DUE TO COVID-19 AND HYPOXIA. TODAY, SHE IS ALERT AND ORIENTED, LYING IN BED ON MORNING ROUNDS. HE CONTINUES WITH COMPLAINTS OF COUGH, SHORTNESS OF BREATH, AND WEAKNESS THIS MORNING. SHORTNESS OF BREATH IS WORSE WHILE AMBULATING. SHE IS CURRENTLY UTILIZ ING HEATED HIGH FLOW OXYGEN. OXYGEN SATURATIONS THROUGHOUT THE NIGHT HAVE BEE 86-91% ON HHF OXYGEN. STAFF REPORTS THAT HER SATURATIONS FELL TO THE 50s WHEN AMBULATING WITHOUT OXYGEN. ON EXAMINATION, HEART IS REGULAR IN RATE AND RHYTHM. BILATERAL LUNGS ARE NOTED WITH SCATTERED WHEEZING THROUGHOUT. ABDOMEN IS ROUND, SOFT, AND NON-TENDER WITH NORMAL BOWEL SOUNDS NOTED IN ALL QUADRANTS. HIS VITALS THIS MORNING ARE: 98.2-88-32-90%HHF-159/81. LABS WERE OBTAINED. ABNORMAL LAB VALUES INCLUDE THE FOLLOWING: CARBON DIOXIDE 32.1, BUN 22, CREATININE 1.24, GLUCOSE 134, FERRITIN 684, AST 44, CRP 20.0, ALBUMIN 2.7. ABG OBTAINED THIS MORNING AND REVEALED: PH 7.360, PC02 60.0, P02 56.0, HC03 33.9, 02 SAT 87, BASE EXCESS 6.7, FI02 70.0. BLOOD AND SPUTUM CULTURES ARE PENDING. A CHEST XRAY WAS OBTAINED THIS MORNING AND REVEALED: The trachea is midline. The cardiac silhouette is enlarged. Bilateral airspace disease unchanged. No pleural effusion or pneumothorax. The bony thorax is unremarkable. SHE IS CURRENTLY RECEIVING 1/2NS AT [facility], LEVAQUIN 500MG IV DAILY, REMDESIVIR 100MG IV DAILY, DUONEBS QID, PULMICORT NEBS BID, TUSSIONEX 5ML PO Q12H PRN, ROBITUSSIN DM 10 ML PO QID, PROBIOTICS DAILY, SOLU-MEDROL 80MG IV Q8H, ZINC 220MG PO DAILY, FIORICET 1 TAB PO Q4H PRN, XANAX 0.25MG PO BID PRN, LOVENOX 40MG SC DAILY. WE WILL CONTINUE WITH CURRENT PLAN OF CARE TODAY. OTHERWISE, WE PLAN TO FOLLOW UP WITH AM LABS AND CHEST XRAY AND CONTINUE TO MONITOR. - Past Medical Family Social History Past Med/Fam/Surg Hx: No changes since H&P Allergies: Allergies Penicillins Allergy (Verified 01/23/20 20:30) Sulfa (Sulfonamide Antibiotics) [SULFA] Allergy (Verified 01/23/20 20:30) - Review of Systems ROS: No change since H&P - Vital Signs and I&O's Vital Signs: Temperature 98.2 F Pulse Rate 89 Respiratory Rate 28 Blood Pressure 161/83 O2 Sat by Pulse Oximetry 91 Intake and Output: Intake & Output 01/24/20 01/25/20 01/26/20 01/27/20 11:59 11:59 11:59 11:59 Intake Total 1170 / 1170 4447 / 4447 2200 / 0 2109 Balance 1170 / 1170 4447 / 4447 2199 - Physical Exam Oriented: Normal Eyes: Normal Ear: Normal Nose: Normal Throat: Normal Respiratory: Diminished Cardiovascular: Normal : Normal Auscultation: Bowel Sounds: Normal Palpation: Normal Tenderness: Normal Skin: Normal Musculoskeletal: Normal Psychiatric: Normal Mood Description: Calm Affect: Normal Speech Pattern: Clear, Appropriate - Laboratory and Diagnostics Result Diagrams: 01/27/20 04:35 01/27/20 04:35 Labs: 01/23/20 21:18 Sputum - Expectorated Sputum Sputum Culture - Final 01/23/20 21:18 Sputum - Expectorated Sputum - Final 01/23/20 19:25 Blood Blood Culture - Preliminary 01/23/20 19:15 Blood Blood Culture - Preliminary Laboratory WBC 9.6 X10^3/uL (3.6-10.0) 01/27/20 04:35 RBC 4.86 X10^6/uL (3.5-5.4) 01/27/20 04:35 Hgb 14.1 g/dL (12.0-16.0) 01/27/20 04:35 Hct 43.3 % (36.0-47.0) 01/27/20 04:35 MCV 89.1 fL (80.0-100.0) 01/27/20 04:35 MCH 29.0 pg (27.0-34.0) 01/27/20 04:35 MCHC 32.6 g/dL (33.0-35.0) L 01/27/20 04:35 RDW 14.5 % (11.6-16.5) 01/27/20 04:35 Plt Count 178 X10^3/uL (150.0-450.0) 01/27/20 04:35 Plt Count Comment Adequate (ADEQUATE) 01/27/20 04:35 MPV 8.4 fL (7.4-11.0) 01/27/20 04:35 Neut % (Auto) 92.0 % (42.0-75.0) H 01/27/20 04:35 Lymph % (Auto) 3.9 % (21.0-51.0) L 01/27/20 04:35 [place] % (Auto) 4.0 % (0.0-13.0) 01/27/20 04:35 Eos % (Auto) 0.0 % (0.9-2.9) L 01/27/20 04:35 Baso % (Auto) 0.1 % (0.2-1.0) L 01/27/20 04:35 Neut # (Auto) 8.8 x10^3/uL (2.2-4.8) H 01/27/20 04:35 Lymph # (Auto) 0.4 X10^3/uL (1.3-2.9) L 01/27/20 04:35 [place] # (Auto) 0.4 x10^3/uL (0.3-0.8) 01/27/20 04:35 Eos # (Auto) 0.0 x10^3/uL (0.0-0.2) 01/27/20 04:35 Baso # (Auto) 0.0 X10^3/uL (0.0-0.1) 01/27/20 04:35 Absolute Nucleated RBC 0.1 /100WBC 01/27/20 04:35 Total Counted 100 01/27/20 04:35 Neutrophils % (Manual) 91 % (39-76) H 01/27/20 04:35 Band Neutrophils % 2 % (0-10) 01/27/20 04:35 Lymphocytes % (Manual) 4 % (13-43) L 01/27/20 04:35 Monocytes % (Manual) 3 % (4-9) L 01/27/20 04:35 Nucleated RBCs 1 01/26/20 06:23 Plt Morphology Comment Normal (NORMAL) 01/27/20 04:35 RBC Morphology Normal (NORMAL) 01/27/20 04:35 Sample Site Lr 01/27/20 04:00 ABG pH 7.360 (7.35-7.45) 01/27/20 04:00 ABG pCO2 60.0 mmHg (35.0-45.0) H* 01/27/20 04:00 ABG pO2 56.0 mmHg (80.0-100.0) L 01/27/20 04:00 ABG HCO3 33.9 mmol/L (22-26) H* 01/27/20 04:00 ABG O2 Saturation 87.0 % (90-100) L 01/27/20 04:00 ABG Base Excess 6.7 mmol/L (-2.0-2.0) H 01/27/20 04:00 Durga Test Pos 01/27/20 04:00 A-a Gradient 368.0 mmHg 01/27/20 04:00 FiO2 70.0 01/27/20 04:00 Blood Gas Comments Janessa well ae 01/27/20 04:00 Sodium 139 mmol/L (136-145) 01/27/20 04:35 Corrected Sodium 140 mmol/L (136-145) 01/27/20 04:35 Potassium 4.8 mmol/L (3.5-5.1) 01/27/20 04:35 Chloride 104 mmol/L (98-107) 01/27/20 04:35 Carbon Dioxide 32.1 mmol/L (21-32) H 01/27/20 04:35 BUN 22 mg/dL (7-18) H 01/27/20 04:35 Creatinine 1.24 mg/dL (0.55-1.02) H 01/27/20 04:35 Est GFR (MDRD) Af Amer 56 (>60) L 01/27/20 04:35 Est GFR (MDRD) Non-Af 46 (>60) L 01/27/20 04:35 Glucose 134 mg/dL (65-99) H 01/27/20 04:35 Calcium 8.8 mg/dL (8.5-10.1) 01/27/20 04:35 Corrected Calcium 9.8 mg/dL (8.5-10.1) 01/27/20 04:35 Ferritin 684 ng/mL (8-252) H 01/27/20 04:35 Total Bilirubin 0.30 mg/dL (0.2-1.0) 01/27/20 04:35 AST 44 Units/L (15-37) H 01/27/20 04:35 ALT 34 Units/L (12-78) 01/27/20 04:35 Alkaline Phosphatase 77 Units/L (46-116) 01/27/20 04:35 Creatine Kinase 140 Units/L (26-192) 01/24/20 05:10 CK-MB (CK-2) 1.0 ng/mL (0-4.0) 01/24/20 05:10 CK/CKMB % Calc 0.7 % (<4) 01/24/20 05:10 Troponin I < 0.02 ng/mL (0-1.5) 01/24/20 05:10 C-Reactive Protein 20.00 mg/L (0-3.0) H 01/27/20 04:35 B-Natriuretic Peptide 14.9 pg/mL (0-79) 01/24/20 05:10 Total Protein 6.8 g/dL (6.4-8.2) 01/27/20 04:35 Albumin 2.7 g/dL (3.4-5.0) L 01/27/20 04:35 Globulin 4.1 g/dL (2.5-4.5) 01/27/20 04:35 Albumin/Globulin Ratio 0.7 Ratio (1.1-2.1) L 01/27/20 04:35 - Plan (1) Pneumonia Status: Acute Qualifiers: Pneumonia type: due to unspecified organism Laterality: unspecified laterality Lung location: unspecified part of lung Qualified Code(s): J18.9 - Pneumonia, unspecified organism Plan: 1/2NS AT [facility], LEVAQUIN 500MG IV DAILY, REMDESIVIR 100MG IV DAILY, DUONEBS QID, PULMICORT NEBS BID, TUSSIONEX 5ML PO Q12H PRN, ROBITUSSIN DM 10 ML PO QID, PROBIOTICS DAILY, SOLU-MEDROL 80MG IV Q8H, ZINC 220MG PO DAILY. (2) COVID-19 Status: Acute
[2020-01-27] MEDS: LOVENOX INJ 40 MG SYR SC SCH (11:15)
[2020-01-27 12:37] LABS: BILIRUBIN,URINE NEGATIVE (NEGATIVE); BLOOD/HEMOGLOBIN,URINE NEGATIVE (NEGATIVE); GLUCOSE, URINE NEGATIVE (NEGATIVE); KETONES,URINE NEGATIVE (NEGATIVE); LEUKOCYTE ESTERASE ,URINE NEGATIVE (NEGATIVE); NITRITES,URINE NEGATIVE (NEGATIVE); PROTEIN,URINE NEGATIVE (NEGATIVE); UROBILINOGEN,URINE NORMAL (NORMAL)
[2020-01-27 12:44] LABS: APPEARANCE,URINE CLEAR (CLEAR); COLOR,URINE PALE YELLOW (YELLOW)
[2020-01-27] MEDS ORDERED: NS 1/2 1,000 ML IV 1,000 ML IV ONE (13:07)
[2020-01-27] MEDS: REMDESIVIR 100 MG in NS 250 ML IV 250 ML IV SCH (20:25)
[2020-01-27] MEDS: LUMIGAN OPHTH AFFEYE SCH (20:26)
[2020-01-27] MEDS: FIORICET TAB PO PRN (21:33)
[2020-01-28] MEDS: LEVAQUIN PREMIX IV 500 MG 500 MG/100 ML BAG IV SCH (00:15)
[2020-01-28] MEDS: NORCO 5/325 MG TAB PO PRN (00:15)
[2020-01-28 05:15] LABS: BASOPHILS % (AUTO) 0 % (0.2-1.0); HEMATOCRIT 44.2 % (36.0-47.0); HEMOGLOBIN 14.5 g/dL (12.0-16.0); LYMPHOCYTES # (AUTO) 0.5 X10^3/uL (1.3-2.9); LYMPHOCYTES % (AUTO) 6.5 % (21.0-51.0); MEAN CORPUSCULAR HEMOGLOBIN 28.9 pg (27.0-34.0); MEAN CORPUSCULAR HGB CONC 32.9 g/dL (33.0-35.0); MEAN PLATELET VOLUME 8.4 fL (7.4-11.0); MONOCYTES # (AUTO) 0.4 x10^3/uL (0.3-0.8); MONOCYTES % (AUTO) 4.6 % (0.0-13.0); NEUTROPHILS # (AUTO) 7.4 x10^3/uL (2.2-4.8); NEUTROPHILS % (AUTO) 88.9 % (42.0-75.0); PLATELET COUNT 165 X10^3/uL (150.0-450.0); RED BLOOD COUNT 5.02 X10^6/uL (3.5-5.4); RED CELL DISTRIBUTION WIDTH 14.4 % (11.6-16.5); WHITE BLOOD COUNT 8.3 X10^3/uL (3.6-10.0)
[2020-01-28] MEDS: SOLU-Medrol 40 MG VIAL IVP SCH ×3 (05:18→21:01)
[2020-01-28 05:26] LABS: ALBUMIN 2.6 g/dL (3.4-5.0); CALCIUM 8.6 mg/dL (8.5-10.1); CARBON DIOXIDE 32.6 mmol/L (21-32); COR CA(FOR HYPOALB) 9.7 mg/dL (8.5-10.1); CREATININE 1.18 mg/dL (0.55-1.02); TOTAL PROTEIN 6.7 g/dL (6.4-8.2)
[2020-01-28 05:27] LABS: ABG BASE EXCESS 7.9 mmol/L (-2.0-2.0)
[2020-01-28 05:28] LABS: ABG ALLEN TEST POS; ABG HCO3 33.3 mmol/L (22-26)
--- NOTE | 2020-01-28 06:05 | RAD ---
HISTORYSOBSTUDYCHEST, 1 [id number]/2020FINDINGSThe trachea is midline. The cardiac silhouette is enlarged.. Bilateral airspace disease, unchanged. No pleural effusion or pneumothorax. Is. The bony thorax is unremarkable.IMPRESSIONBilateral airspace disease unchanged from 01/27/2020Electronically signed by: Dru Mercado (Jan 28, 2020 06:04:01)
[2020-01-28] MEDS: DUONEB 0.5 MG/3 MG (3 mL) NEB SCH ×4 (09:05→21:26)
[2020-01-28] MEDS: PULMICORT NEB TX 0.5 MG NEB SCH ×2 (09:05→21:26)
[2020-01-28] MEDS: PROTONIX TAB 40 MG PO SCH (09:06)
[2020-01-28] MEDS: LOVENOX INJ 40 MG SYR SC SCH (09:06)
[2020-01-28] MEDS: VSL#3 PO SCH (09:07)
[2020-01-28] MEDS: ZESTRIL TAB 10 MG PO SCH (09:07)
[2020-01-28] MEDS: ROBITUSSIN DM PO SCH ×4 (09:07→20:34)
[2020-01-28] MEDS: ZINC SULFATE PO SCH (09:07)
[2020-01-28] MEDS: NS 1/2 1,000 ML IV 1,000 ML IV SCH ×2 (10:51→20:35)
[2020-01-28] MEDS: MAGIC MOUTHWASH (Orig. Formula) MT SCH ×2 (19:08→20:34)
[2020-01-28] MEDS: LOMOTIL PO PRN (19:09)
[2020-01-28] MEDS ORDERED: NS 1/2 1,000 ML IV 1,000 ML IV ONE (19:51)
--- NOTE | 2020-01-28 20:01 | PCM.PROG ---
Progress Note - Progress Note for Day of Date of Exam: 01/28/20 - Subjective Subjective: IS BEING TREATED FOR PNEUMONIA DUE TO COVID-19 AND HYPOXIA. TODAY, SHE IS ALERT AND ORIENTED, LYING IN BED ON MORNING ROUNDS. SHE CONTINUES WITH COMPLAINTS OF COUGH, SHORTNESS OF BREATH, AND WEAKNESS THIS MORNING. SHE ALSO CONTINUES WITH DIARRHEA. SHE DENIES SIGNIFICANT IMPROVEMENT IN SYMPTOMS SINCE ONE DAY PRIOR. SHE IS CURRENTLY UTILIZING HEATED HIGH FLOW OXYGEN. OXYGEN SATURATIONS THROUGHOUT THE NIGHT HAVE BEEN 89-94% ON HHF OXYGEN. ON EXAMINATION, HEART IS REGULAR IN RATE AND RHYTHM. BILATERAL LUNGS ARE NOTED WITH SCATTERED WHEEZING THROUGHOUT. ABDOMEN IS ROUND, SOFT, AND NON-TENDER WITH NORMAL BOWEL SOUNDS NOTED IN ALL QUADRANTS. HIS VITALS THIS MORNING ARE: 98.2-88-32-90%HHF-159/81. LABS WERE OBTAINED. ABNORMAL LAB VALUES INCLUDE THE FOLLOWING: CARBON DIOXIDE 32.6, BUN 23, CREATININE 1.18, GLUCOSE 125, FERRITIN 766, AST 51, CRP 12, ALBUMIN 2.6. ABG OBTAINED THIS MORNING AND REVEALED: PH 7.440, PC02 49, P02 72, HC03 33.3, 02 SAT 95, BASE EXCESS 7.9, FI02 83. BLOOD AND SPUTUM CULTURES ARE PENDING. A CHEST XRAY WAS OBTAINED THIS MORNING AND REVEALED: trachea is midline. The cardiac silhouette is enlarged. Bilateral airspace disease, unchanged. No pleural effusion or pneumothorax. Is. The bony thorax is unremarkable. SHE IS CURRENTLY RECEIVING 1/2NS AT [facility], LEVAQUIN 500MG IV DAILY, REMDESIVIR 100MG IV DAILY, DUONEBS QID, PULMICORT NEBS BID, TUSSIONEX 5ML PO Q12H PRN, ROBITUSSIN DM 10 ML PO QID, PROBIOTICS DAILY, SOLU-MEDROL 80MG IV Q8H, ZINC 220MG PO DAILY, FIORICET 1 TAB PO Q4H PRN, XANAX 0.25MG PO BID PRN, LOVENOX 40MG SC DAILY. WE WILL CONTINUE WITH CURRENT PLAN OF CARE TODAY AND ADD LOMOTIL 1 TAB PO QID PRN. OTHERWISE, WE PLAN TO FOLLOW UP WITH AM LABS AND CHEST XRAY AND CONTINUE TO MONITOR. - Past Medical Family Social History Past Med/Fam/Surg Hx: No changes since H&P Allergies: Allergies Penicillins Allergy (Verified 01/23/20 20:30) Sulfa (Sulfonamide Antibiotics) [SULFA] Allergy (Verified 01/23/20 20:30) - Review of Systems ROS: No change since H&P - Vital Signs and I&O's Vital Signs: Temperature 97.9 F Pulse Rate 90 Respiratory Rate 33 Blood Pressure 137/88 O2 Sat by Pulse Oximetry 89 Intake and Output: Intake & Output 01/26/20 01/27/20 01/28/20 01/29/20 11:59 11:59 11:59 11:59 Intake Total 2199 / 2109 3037 / 3037 903 / 903 Output Total 1974 1000 / 1000 Balance 2199 / 2109 1062 / 1062 -97 / -97 - Physical Exam Oriented: Normal Eyes: Normal Ear: Normal Nose: Normal Throat: Normal Respiratory: Diminished Cardiovascular: Normal : Normal Auscultation: Bowel Sounds: Normal Tenderness: Normal Skin: Normal Musculoskeletal: Normal Psychiatric: Normal Mood Description: Calm Affect: Normal Speech Pattern: Clear, Appropriate - Laboratory and Diagnostics Result Diagrams: 01/28/20 04:26 01/28/20 04:26 Labs: 01/23/20 21:18 Sputum - Expectorated Sputum Sputum Culture - Final 01/23/20 21:18 Sputum - Expectorated Sputum - Final 01/23/20 19:25 Blood Blood Culture - Preliminary 01/23/20 19:15 Blood Blood Culture - Preliminary Laboratory WBC 8.3 X10^3/uL (3.6-10.0) 01/28/20 04:26 RBC 5.02 X10^6/uL (3.5-5.4) 01/28/20 04:26 Hgb 14.5 g/dL (12.0-16.0) 01/28/20 04:26 Hct 44.2 % (36.0-47.0) 01/28/20 04:26 MCV 88.0 fL (80.0-100.0) 01/28/20 04:26 MCH 28.9 pg (27.0-34.0) 01/28/20 04:26 MCHC 32.9 g/dL (33.0-35.0) L 01/28/20 04:26 RDW 14.4 % (11.6-16.5) 01/28/20 04:26 Plt Count 165 X10^3/uL (150.0-450.0) 01/28/20 04:26 Plt Count Comment Adequate (ADEQUATE) 01/27/20 04:35 MPV 8.4 fL (7.4-11.0) 01/28/20 04:26 Neut % (Auto) 88.9 % (42.0-75.0) H 01/28/20 04:26 Lymph % (Auto) 6.5 % (21.0-51.0) L 01/28/20 04:26 [place] % (Auto) 4.6 % (0.0-13.0) 01/28/20 04:26 Eos % (Auto) 0.0 % (0.9-2.9) L 01/28/20 04:26 Baso % (Auto) 0 % (0.2-1.0) L 01/28/20 04:26 Neut # (Auto) 7.4 x10^3/uL (2.2-4.8) H 01/28/20 04:26 Lymph # (Auto) 0.5 X10^3/uL (1.3-2.9) L 01/28/20 04:26 [place] # (Auto) 0.4 x10^3/uL (0.3-0.8) 01/28/20 04:26 Eos # (Auto) 0.0 x10^3/uL (0.0-0.2) 01/28/20 04:26 Baso # (Auto) 0.0 X10^3/uL (0.0-0.1) 01/28/20 04:26 Absolute Nucleated RBC 0.1 /100WBC 01/28/20 04:26 Total Counted 100 01/27/20 04:35 Neutrophils % (Manual) 91 % (39-76) H 01/27/20 04:35 Band Neutrophils % 2 % (0-10) 01/27/20 04:35 Lymphocytes % (Manual) 4 % (13-43) L 01/27/20 04:35 Monocytes % (Manual) 3 % (4-9) L 01/27/20 04:35 Nucleated RBCs 1 01/26/20 06:23 Plt Morphology Comment Normal (NORMAL) 01/27/20 04:35 RBC Morphology Normal (NORMAL) 01/27/20 04:35 Sample Site Rr 01/28/20 05:00 ABG pH 7.440 (7.35-7.45) 01/28/20 05:00 ABG pCO2 49.0 mmHg (35.0-45.0) H 01/28/20 05:00 ABG pO2 72.0 mmHg (80.0-100.0) L 01/28/20 05:00 ABG HCO3 33.3 mmol/L (22-26) H* 01/28/20 05:00 ABG O2 Saturation 95.0 % (90-100) 01/28/20 05:00 ABG Base Excess 7.9 mmol/L (-2.0-2.0) H 01/28/20 05:00 Durga Test Pos 01/28/20 05:00 A-a Gradient 459.0 mmHg 01/28/20 05:00 FiO2 83.0 01/28/20 05:00 Blood Gas Comments Janessa well sw 01/28/20 05:00 Sodium 140 mmol/L (136-145) 01/28/20 04:26 Corrected Sodium 141 mmol/L (136-145) 01/28/20 04:26 Potassium 4.2 mmol/L (3.5-5.1) 01/28/20 04:26 Chloride 104 mmol/L (98-107) 01/28/20 04:26 Carbon Dioxide 32.6 mmol/L (21-32) H 01/28/20 04:26 BUN 23 mg/dL (7-18) H 01/28/20 04:26 Creatinine 1.18 mg/dL (0.55-1.02) H 01/28/20 04:26 Est GFR (MDRD) Af Amer 59 (>60) 01/28/20 04:26 Est GFR (MDRD) Non-Af 49 (>60) L 01/28/20 04:26 Glucose 125 mg/dL (65-99) H 01/28/20 04:26 Calcium 8.6 mg/dL (8.5-10.1) 01/28/20 04:26 Corrected Calcium 9.7 mg/dL (8.5-10.1) 01/28/20 04:26 Ferritin 766 ng/mL (8-252) H 01/28/20 04:26 Total Bilirubin 0.30 mg/dL (0.2-1.0) 01/28/20 04:26 AST 51 Units/L (15-37) H 01/28/20 04:26 ALT 39 Units/L (12-78) 01/28/20 04:26 Alkaline Phosphatase 80 Units/L (46-116) 01/28/20 04:26 Creatine Kinase 140 Units/L (26-192) 01/24/20 05:10 CK-MB (CK-2) 1.0 ng/mL (0-4.0) 01/24/20 05:10 CK/CKMB % Calc 0.7 % (<4) 01/24/20 05:10 Troponin I < 0.02 ng/mL (0-1.5) 01/24/20 05:10 C-Reactive Protein 12.00 mg/L (0-3.0) H 01/28/20 04:26 B-Natriuretic Peptide 14.9 pg/mL (0-79) 01/24/20 05:10 Total Protein 6.7 g/dL (6.4-8.2) 01/28/20 04:26 Albumin 2.6 g/dL (3.4-5.0) L 01/28/20 04:26 Globulin 4.1 g/dL (2.5-4.5) 01/28/20 04:26 Albumin/Globulin Ratio 0.6 Ratio (1.1-2.1) L 01/28/20 04:26 Specimen Type Catherized urine 01/27/20 11:30 Urine Color Pale yellow (YELLOW) 01/27/20 11:30 Urine Appearance Clear (CLEAR) 01/27/20 11:30 Urine pH 6.0 (5.0 - 8.0) 01/27/20 11:30 Ur Specific [place] 1.020 (1.000-1.030) 01/27/20 11:30 Urine Protein Negative (NEGATIVE) 01/27/20 11:30 Urine Glucose (UA) Negative (NEGATIVE) 01/27/20 11:30 Urine Ketones Negative (NEGATIVE) 01/27/20 11:30 Urine Occult Blood Negative (NEGATIVE) 01/27/20 11:30 Urine Nitrite Negative (NEGATIVE) 01/27/20 11:30 Urine Bilirubin Negative (NEGATIVE) 01/27/20 11:30 Urine Urobilinogen Normal (NORMAL) 01/27/20 11:30 Ur Leukocyte Esterase Negative (NEGATIVE) 01/27/20 11:30 - Plan (1) Pneumonia Status: Acute Qualifiers: Pneumonia type: due to unspecified organism Laterality: unspecified laterality Lung location: unspecified part of lung Qualified Code(s): J18.9 - Pneumonia, unspecified organism Plan: 1/2NS AT KVO, LEVAQUIN 500MG IV DAILY, REMDESIVIR 100MG IV DAILY, DUONEBS QID, PULMICORT NEBS BID, TUSSIONEX 5ML PO Q12H PRN, ROBITUSSIN DM 10 ML PO QID, PROBIOTICS DAILY, SOLU-MEDROL 80MG IV Q8H, ZINC 220MG PO DAILY. (2) COVID-19 Status: Acute
[2020-01-28] MEDS: REMDESIVIR 100 MG in NS 250 ML IV 250 ML IV SCH (20:31)
[2020-01-28] MEDS: LUMIGAN OPHTH AFFEYE SCH (20:33)
[2020-01-28] MEDS: XANAX PO PRN (21:01)
[2020-01-29] MEDS: LEVAQUIN PREMIX IV 500 MG 500 MG/100 ML BAG IV SCH (00:14)
[2020-01-29] MEDS: NS 1/2 1,000 ML IV 1,000 ML IV SCH ×2 (00:14→16:13)
--- NOTE | 2020-01-29 05:18 | RAD ---
HISTORYSOBSTUDYCHEST, 1 [id number]/27/2020 isFINDINGSThe trachea is midline. The cardiac silhouette is enlarged. Bilateral airspace disease unchanged. No pleural effusion or pneumothorax.. The bony thorax is unremarkable.IMPRESSIONBilateral airspace disease unchanged from 01/28/2020Electronically signed by: Dru Mercado (Jan 29, 2020 05:16:40)
[2020-01-29] MEDS: SOLU-Medrol 40 MG VIAL IVP SCH ×3 (05:20→21:37)
[2020-01-29 05:24] LABS: BASOPHILS % (AUTO) 0.1 % (0.2-1.0); HEMATOCRIT 45.6 % (36.0-47.0); HEMOGLOBIN 14.9 g/dL (12.0-16.0); LYMPHOCYTES # (AUTO) 0.5 X10^3/uL (1.3-2.9); LYMPHOCYTES % (AUTO) 5.8 % (21.0-51.0); MEAN CORPUSCULAR HEMOGLOBIN 28.8 pg (27.0-34.0); MEAN CORPUSCULAR HGB CONC 32.6 g/dL (33.0-35.0); MEAN CORPUSCULAR VOLUME 88.2 fL (80.0-100.0); MEAN PLATELET VOLUME 8.5 fL (7.4-11.0); MONOCYTES # (AUTO) 0.4 x10^3/uL (0.3-0.8); MONOCYTES % (AUTO) 4.1 % (0.0-13.0); NEUTROPHILS # (AUTO) 8.3 x10^3/uL (2.2-4.8); PLATELET COUNT 158 X10^3/uL (150.0-450.0); RED BLOOD COUNT 5.16 X10^6/uL (3.5-5.4); RED CELL DISTRIBUTION WIDTH 14.3 % (11.6-16.5); WHITE BLOOD COUNT 9.2 X10^3/uL (3.6-10.0)
[2020-01-29 05:40] LABS: ALANINE AMINOTRANSFERASE 38 Units/L (12-78); ALBUMIN 2.7 g/dL (3.4-5.0); ALKALINE PHOSPHATASE 87 Units/L (46-116); ASPARTATE AMINO TRANSFERASE 51 Units/L (15-37); BLOOD UREA NITROGEN 22 mg/dL (7-18); CALCIUM 8.4 mg/dL (8.5-10.1); CHLORIDE 104 mmol/L (98-107); COR CA(FOR HYPOALB) 9.4 mg/dL (8.5-10.1); COR NA(FOR HYPERGLY) 141 mmol/L (136-145); CREATININE 1.09 mg/dL (0.55-1.02); SODIUM 140 mmol/L (136-145); TOTAL PROTEIN 6.6 g/dL (6.4-8.2); eGFR NON BLACK RACES 54 (>60)
[2020-01-29 06:14] LABS: ABG ALLEN TEST POS; ABG HCO3 30.2 mmol/L (22-26)
[2020-01-29] MEDS: LOVENOX INJ 40 MG SYR SC SCH (08:00)
[2020-01-29] MEDS: VSL#3 PO SCH (08:00)
[2020-01-29] MEDS: MAGIC MOUTHWASH (Orig. Formula) MT SCH ×4 (08:00→20:27)
[2020-01-29] MEDS: ROBITUSSIN DM PO SCH ×4 (08:01→20:26)
[2020-01-29] MEDS: ZESTRIL TAB 10 MG PO SCH (08:01)
[2020-01-29] MEDS: ZINC SULFATE PO SCH (08:01)
[2020-01-29] MEDS: PROTONIX TAB 40 MG PO SCH (08:01)
[2020-01-29] MEDS: XANAX PO PRN ×2 (08:02→21:38)
[2020-01-29] MEDS: DUONEB 0.5 MG/3 MG (3 mL) NEB SCH ×4 (09:30→21:15)
[2020-01-29] MEDS: PULMICORT NEB TX 0.5 MG NEB SCH ×2 (09:30→21:15)
--- NOTE | 2020-01-29 19:47 | PCM.PROG ---
Progress Note - Progress Note for Day of Date of Exam: 01/29/20 - Subjective Subjective: IS BEING TREATED FOR PNEUMONIA DUE TO COVID-19 AND HYPOXIA. TODAY, SHE IS ALERT AND ORIENTED, LYING IN BED ON MORNING ROUNDS. SHE CONTINUES WITH COMPLAINTS OF COUGH, SHORTNESS OF BREATH, AND WEAKNESS THIS MORNING. SHE ALSO CONTINUES WITH DIARRHEA. SHE DENIES SIGNIFICANT IMPROVEMENT IN SYMPTOMS SINCE ONE DAY PRIOR. SHE IS CURRENTLY UTILIZING HEATED HIGH FLOW OXYGEN. OXYGEN SATURATIONS THROUGHOUT THE NIGHT HAVE BEEN 89-94% ON HHF OXYGEN. ON EXAMINATION, HEART IS REGULAR IN RATE AND RHYTHM. BILATERAL LUNGS ARE NOTED WITH SCATTERED WHEEZING THROUGHOUT. ABDOMEN IS ROUND, SOFT, AND NON-TENDER WITH NORMAL BOWEL SOUNDS NOTED IN ALL QUADRANTS. HIS VITALS THIS MORNING ARE: 98.1-97-24-88%HHF-189/90. LABS WERE OBTAINED. ABNORMAL LAB VALUES INCLUDE THE FOLLOWING: BUN 22, CREATININE 1.09, GLUCOSE 146, CALCIUM 8.4, AST 51, CRP 7.20, ALBUMIN 2.7. ABG OBTAINED THIS MORNING AND REVEALED: PH 7.520, PC02 37, P02 116.0, HC03 30.2, 02 SAT 99, BASE EXCESS 7.0, FI02 93.0. BLOOD AND SPUTUM CUL TURES ARE PENDING. A CHEST XRAY WAS OBTAINED THIS MORNING AND REVEALED: trachea is midline. The cardiac silhouette is enlarged. Bilateral airspace disease unchanged. No pleural effusion or pneumothorax. The bony thorax is unremarkable. SHE IS CURRENTLY RECEIVING 1/2NS AT [facility], LEVAQUIN 500MG IV DAILY, REMDESIVIR 100MG IV DAILY, DUONEBS QID, PULMICORT NEBS BID, TUSSIONEX 5ML PO Q12H PRN, ROBITUSSIN DM 10 ML PO QID, PROBIOTICS DAILY, SOLU-MEDROL 80MG IV Q8H, ZINC 220MG PO DAILY, FIORICET 1 TAB PO Q4H PRN, LOMOTIL 1 TAB PO QID PRN, XANAX 0.25MG PO BID PRN, LOVENOX 40MG SC DAILY. WE WILL CONTINUE WITH CURRENT PLAN OF CARE TODAY. OTHERWISE, WE PLAN TO FOLLOW UP WITH AM LABS AND CHEST XRAY AND CON TINUE TO MONITOR. - Past Medical Family Social History Past Med/Fam/Surg Hx: No changes since H&P Allergies: Allergies Penicillins Allergy (Verified 01/23/20 20:30) Sulfa (Sulfonamide Antibiotics) [SULFA] Allergy (Verified 01/23/20 20:30) - Review of Systems ROS: No change since H&P - Vital Signs and I&O's Vital Signs: Temperature 97.8 F Pulse Rate 106 Respiratory Rate 24 Blood Pressure 121/68 O2 Sat by Pulse Oximetry 90 Intake and Output: Intake & Output 01/27/20 01/28/20 01/29/20 01/30/20 11:59 11:59 11:59 11:59 Intake Total 2109 3037 / 3037 2985 / 2985 1577 / 1577 Output Total 1974 2800 / 2800 775 / 775 Balance 2109 1062 / 1062 185 / 185 802 / 802 - Physical Exam Oriented: Normal Eyes: Normal Ear: Normal Nose: Normal Throat: Normal Respiratory: Diminished Cardiovascular: Normal : Normal Auscultation: Bowel Sounds: Normal Palpation: Normal Tenderness: Normal Skin: Normal Musculoskeletal: Normal Psychiatric: Normal Mood Description: Calm Affect: Normal Speech Pattern: Clear, Appropriate - Laboratory and Diagnostics Result Diagrams: 01/29/20 04:37 01/29/20 04:37 Labs: 01/23/20 19:25 Blood Blood Culture - Final 01/23/20 19:15 Blood Blood Culture - Final 01/23/20 21:18 Sputum - Expectorated Sputum Sputum Culture - Final 01/23/20 21:18 Sputum - Expectorated Sputum - Final Laboratory WBC 9.2 X10^3/uL (3.6-10.0) 01/29/20 04:37 RBC 5.16 X10^6/uL (3.5-5.4) 01/29/20 04:37 Hgb 14.9 g/dL (12.0-16.0) 01/29/20 04:37 Hct 45.6 % (36.0-47.0) 01/29/20 04:37 MCV 88.2 fL (80.0-100.0) 01/29/20 04:37 MCH 28.8 pg (27.0-34.0) 01/29/20 04:37 MCHC 32.6 g/dL (33.0-35.0) L 01/29/20 04:37 RDW 14.3 % (11.6-16.5) 01/29/20 04:37 Plt Count 158 X10^3/uL (150.0-450.0) 01/29/20 04:37 Plt Count Comment Adequate (ADEQUATE) 01/27/20 04:35 MPV 8.5 fL (7.4-11.0) 01/29/20 04:37 Neut % (Auto) 90.0 % (42.0-75.0) H 01/29/20 04:37 Lymph % (Auto) 5.8 % (21.0-51.0) L 01/29/20 04:37 [place] % (Auto) 4.1 % (0.0-13.0) 01/29/20 04:37 Eos % (Auto) 0.0 % (0.9-2.9) L 01/29/20 04:37 Baso % (Auto) 0.1 % (0.2-1.0) L 01/29/20 04:37 Neut # (Auto) 8.3 x10^3/uL (2.2-4.8) H 01/29/20 04:37 Lymph # (Auto) 0.5 X10^3/uL (1.3-2.9) L 01/29/20 04:37 [place] # (Auto) 0.4 x10^3/uL (0.3-0.8) 01/29/20 04:37 Eos # (Auto) 0.0 x10^3/uL (0.0-0.2) 01/29/20 04:37 Baso # (Auto) 0.0 X10^3/uL (0.0-0.1) 01/29/20 04:37 Absolute Nucleated RBC 0.1 /100WBC 01/29/20 04:37 Total Counted 100 01/27/20 04:35 Neutrophils % (Manual) 91 % (39-76) H 01/27/20 04:35 Band Neutrophils % 2 % (0-10) 01/27/20 04:35 Lymphocytes % (Manual) 4 % (13-43) L 01/27/20 04:35 Monocytes % (Manual) 3 % (4-9) L 01/27/20 04:35 Nucleated RBCs 1 01/26/20 06:23 Plt Morphology Comment Normal (NORMAL) 01/27/20 04:35 RBC Morphology Normal (NORMAL) 01/27/20 04:35 Sample Site Lrda 01/29/20 06:08 ABG pH 7.520 (7.35-7.45) H 01/29/20 06:08 ABG pCO2 37.0 mmHg (35.0-45.0) 01/29/20 06:08 ABG pO2 116.0 mmHg (80.0-100.0) H 01/29/20 06:08 ABG HCO3 30.2 mmol/L (22-26) H* 01/29/20 06:08 ABG O2 Saturation 99.0 % (90-100) 01/29/20 06:08 ABG Base Excess 7.0 mmol/L (-2.0-2.0) H 01/29/20 06:08 Durga Test Pos 01/29/20 06:08 A-a Gradient 501.0 mmHg 01/29/20 06:08 FiO2 93.0 01/29/20 06:08 Blood Gas Comments Janessa abg well-mtf 01/29/20 06:08 Sodium 140 mmol/L (136-145) 01/29/20 04:37 Corrected Sodium 141 mmol/L (136-145) 01/29/20 04:37 Potassium 3.9 mmol/L (3.5-5.1) 01/29/20 04:37 Chloride 104 mmol/L (98-107) 01/29/20 04:37 Carbon Dioxide 31.0 mmol/L (21-32) 01/29/20 04:37 BUN 22 mg/dL (7-18) H 01/29/20 04:37 Creatinine 1.09 mg/dL (0.55-1.02) H 01/29/20 04:37 Est GFR (MDRD) Af Amer > 60 (>60) 01/29/20 04:37 Est GFR (MDRD) Non-Af 54 (>60) L 01/29/20 04:37 Glucose 146 mg/dL (65-99) H 01/29/20 04:37 Calcium 8.4 mg/dL (8.5-10.1) L 01/29/20 04:37 Corrected Calcium 9.4 mg/dL (8.5-10.1) 01/29/20 04:37 Ferritin 766 ng/mL (8-252) H 01/28/20 04:26 Total Bilirubin 0.40 mg/dL (0.2-1.0) 01/29/20 04:37 AST 51 Units/L (15-37) H 01/29/20 04:37 ALT 38 Units/L (12-78) 01/29/20 04:37 Alkaline Phosphatase 87 Units/L (46-116) 01/29/20 04:37 Creatine Kinase 140 Units/L (26-192) 01/24/20 05:10 CK-MB (CK-2) 1.0 ng/mL (0-4.0) 01/24/20 05:10 CK/CKMB % Calc 0.7 % (<4) 01/24/20 05:10 Troponin I < 0.02 ng/mL (0-1.5) 01/24/20 05:10 C-Reactive Protein 7.20 mg/L (0-3.0) H 01/29/20 04:37 B-Natriuretic Peptide 14.9 pg/mL (0-79) 01/24/20 05:10 Total Protein 6.6 g/dL (6.4-8.2) 01/29/20 04:37 Albumin 2.7 g/dL (3.4-5.0) L 01/29/20 04:37 Globulin 3.9 g/dL (2.5-4.5) 01/29/20 04:37 Albumin/Globulin Ratio 0.7 Ratio (1.1-2.1) L 01/29/20 04:37 Specimen Type Catherized urine 01/27/20 11:30 Urine Color Pale yellow (YELLOW) 01/27/20 11:30 Urine Appearance Clear (CLEAR) 01/27/20 11:30 Urine pH 6.0 (5.0 - 8.0) 01/27/20 11:30 Ur Specific [place] 1.020 (1.000-1.030) 01/27/20 11:30 Urine Protein Negative (NEGATIVE) 01/27/20 11:30 Urine Glucose (UA) Negative (NEGATIVE) 01/27/20 11:30 Urine Ketones Negative (NEGATIVE) 01/27/20 11:30 Urine Occult Blood Negative (NEGATIVE) 01/27/20 11:30 Urine Nitrite Negative (NEGATIVE) 01/27/20 11:30 Urine Bilirubin Negative (NEGATIVE) 01/27/20 11:30 Urine Urobilinogen Normal (NORMAL) 01/27/20 11:30 Ur Leukocyte Esterase Negative (NEGATIVE) 01/27/20 11:30 - Plan (1) Pneumonia Status: Acute Qualifiers: Pneumonia type: due to unspecified organism Laterality: unspecified laterality Lung location: unspecified part of lung Qualified Code(s): J18.9 - Pneumonia, unspecified organism Plan: 1/2NS AT [facility], LEVAQUIN 500MG IV DAILY, REMDESIVIR 100MG IV DAILY, DUONEBS QID, PULMICORT NEBS BID, TUSSIONEX 5ML PO Q12H PRN, ROBITUSSIN DM 10 ML PO QID, PROBIOTICS DAILY, SOLU-MEDROL 80MG IV Q8H, ZINC 220MG PO DAILY. (2) COVID-19 Status: Acute
[2020-01-29] MEDS: REMDESIVIR 100 MG in NS 250 ML IV 250 ML IV SCH (20:26)
[2020-01-29] MEDS: LUMIGAN OPHTH AFFEYE SCH (20:26)
[2020-01-29] MEDS: LOMOTIL PO PRN (20:41)
[2020-01-29] MEDS: TUSSIONEX PENNKINETIC SUSP PO PRN (21:38)
[2020-01-30] MEDS: LEVAQUIN PREMIX IV 500 MG 500 MG/100 ML BAG IV SCH (00:09)
[2020-01-30] MEDS: SOLU-Medrol 40 MG VIAL IVP SCH ×3 (05:24→21:00)
[2020-01-30 05:33] LABS: BASOPHILS % (AUTO) 0.1 % (0.2-1.0); HEMATOCRIT 44.6 % (36.0-47.0); HEMOGLOBIN 14.5 g/dL (12.0-16.0); LYMPHOCYTES # (AUTO) 0.6 X10^3/uL (1.3-2.9); LYMPHOCYTES % (AUTO) 5.4 % (21.0-51.0); MEAN CORPUSCULAR HEMOGLOBIN 28.8 pg (27.0-34.0); MEAN CORPUSCULAR HGB CONC 32.5 g/dL (33.0-35.0); MEAN CORPUSCULAR VOLUME 88.6 fL (80.0-100.0); MEAN PLATELET VOLUME 8.4 fL (7.4-11.0); MONOCYTES # (AUTO) 0.5 x10^3/uL (0.3-0.8); MONOCYTES % (AUTO) 4.2 % (0.0-13.0); NEUTROPHILS # (AUTO) 9.9 x10^3/uL (2.2-4.8); NEUTROPHILS % (AUTO) 90.3 % (42.0-75.0); PLATELET COUNT 155 X10^3/uL (150.0-450.0); RED BLOOD COUNT 5.04 X10^6/uL (3.5-5.4); RED CELL DISTRIBUTION WIDTH 14.1 % (11.6-16.5)
[2020-01-30 05:45] LABS: ALANINE AMINOTRANSFERASE 39 Units/L (12-78); ALBUMIN 2.7 g/dL (3.4-5.0); ALKALINE PHOSPHATASE 87 Units/L (46-116); ASPARTATE AMINO TRANSFERASE 52 Units/L (15-37); BLOOD UREA NITROGEN 25 mg/dL (7-18); CALCIUM 8.4 mg/dL (8.5-10.1); CARBON DIOXIDE 29.8 mmol/L (21-32); CHLORIDE 104 mmol/L (98-107); COR CA(FOR HYPOALB) 9.4 mg/dL (8.5-10.1); COR NA(FOR HYPERGLY) 143 mmol/L (136-145); CREATININE 0.99 mg/dL (0.55-1.02); SODIUM 142 mmol/L (136-145); TOTAL PROTEIN 6.4 g/dL (6.4-8.2); eGFR NON BLACK RACES 60 (>60)
--- NOTE | 2020-01-30 05:47 | RAD ---
HISTORYSOBSTUDYCHEST, 1 [id number] trachea is midline. The cardiac silhouette is enlarged.. Bilateral airspace disease, unchanged. No pleural effusion or pneumothorax.. The bony thorax is unremarkable.IMPRESSIONStable portable chestElectronically signed by: Dru Mercado (Jan 30, 2020 05:46:15)
[2020-01-30 05:58] LABS: BAND NEUTROPHILS % 3 % (0-10); PLATELET MORPHOLOGY COMMENT NORMAL (NORMAL)
[2020-01-30] MEDS ORDERED: NS 1/2 1,000 ML IV 1,000 ML IV ONE (06:06)
[2020-01-30] MEDS: NS 1/2 1,000 ML IV 1,000 ML IV SCH ×3 (06:07→20:25)
[2020-01-30 06:30] LABS: ABG BASE EXCESS 7.8 mmol/L (-2.0-2.0)
[2020-01-30 06:32] LABS: ABG ALLEN TEST POS; ABG HCO3 32.7 mmol/L (22-26)
[2020-01-30] MEDS: PULMICORT NEB TX 0.5 MG NEB SCH ×2 (08:18→20:00)
[2020-01-30] MEDS: DUONEB 0.5 MG/3 MG (3 mL) NEB SCH ×4 (08:18→20:00)
[2020-01-30] MEDS: MAGIC MOUTHWASH (Orig. Formula) MT SCH ×4 (09:51→20:24)
[2020-01-30] MEDS: ZINC SULFATE PO SCH (09:52)
[2020-01-30] MEDS: VSL#3 PO SCH (09:52)
[2020-01-30] MEDS: PROTONIX TAB 40 MG PO SCH (09:52)
[2020-01-30] MEDS: ROBITUSSIN DM PO SCH ×4 (09:53→20:25)
[2020-01-30] MEDS: ZESTRIL TAB 10 MG PO SCH (09:53)
[2020-01-30] MEDS: LOVENOX INJ 40 MG SYR SC SCH (09:54)
--- NOTE | 2020-01-30 13:20 | PCM.PROG ---
Progress Note - Progress Note for Day of Date of Exam: 01/30/20 - Subjective Subjective: IS BEING TREATED FOR PNEUMONIA DUE TO COVID-19 AND HYPOXIA. TODAY, SHE IS ALERT AND ORIENTED, LYING IN BED ON MORNING ROUNDS. SHE CONTINUES WITH COMPLAINTS OF COUGH, SHORTNESS OF BREATH, AND WEAKNESS THIS MORNING. SHE ALSO CONTINUES WITH DIARRHEA. SHE DENIES SIGNIFICANT IMPROVEMENT IN SYMPTOMS SINCE ONE DAY PRIOR. SHE IS CURRENTLY UTILIZING HEATED HIGH FLOW OXYGEN. OXYGEN SATURATIONS THROUGHOUT THE NIGHT HAVE BEEN 89-94% ON HHF OXYGEN. ON EXAMINATION, HEART IS REGULAR IN RATE AND RHYTHM. BILATERAL LUNGS ARE NOTED WITH SCATTERED WHEEZING THROUGHOUT. ABDOMEN IS ROUND, SOFT, AND NON-TENDER WITH NORMAL BOWEL SOUNDS NOTED IN ALL QUADRANTS. HIS VITALS THIS MORNING ARE: 97.3-100-18-94%HHF-157/69. LABS WERE OBTAINED. ABNORMAL LAB VALUES INCLUDE THE FOLLOWING: WBC 11.0, BUN 25, GLUCOSE 134, CALCIUM 8.4, FERRITIN 672, AST 52, CRP 4.60, ALBUMIN 2.7. ABG OBTAINED THIS MORNING AND REVEALED: PH 7.460, PC02 46, P02 74, HC03 32.7, 02 SAT 95, BASE EXCESS 7.8, FI02 80.0. BLOOD AND SPUTUM CULTURES ARE PENDING. A CHEST XRAY WAS OBTAINED THIS MORNING AND REVEALED: The trachea is midline. The cardiac silhouette is enlarged. Bilateral airspace disease, unchanged. No pleural effusion or pneumothorax. The bony thorax is unremarkable. SHE IS CURRENTLY RECEIVING 1/2NS AT [facility], LEVAQUIN 500MG IV DAILY, REMDESIVIR 100MG IV DAILY, DUONEBS QID, PULMICORT NEBS BID, TUSSIONEX 5ML PO Q12H PRN, ROBITUSSIN DM 10 ML PO QID, PROBIOTICS DAILY, SOLU-MEDROL 80MG IV Q8H, ZINC 220MG PO DAILY, FIORICET 1 TAB PO Q4H PRN, LOMOTIL 1 TAB PO QID PRN, XANAX 0.25MG PO BID PRN, LOVENOX 40MG SC DAILY. WE WILL CONTINUE WITH CURRENT PLAN OF CARE TODAY. OTHERWISE, WE PLAN TO FOLLOW UP WITH AM LABS AND CHEST XRAY AND CONTINUE TO MONITOR. - Past Medical Family Social History Past Med/Fam/Surg Hx: No changes since H&P Allergies: Allergies Penicillins Allergy (Verified 01/23/20 20:30) Sulfa (Sulfonamide Antibiotics) [SULFA] Allergy (Verified 01/23/20 20:30) - Review of Systems ROS: No change since H&P - Vital Signs and I&O's Vital Signs: Temperature 97.3 F Pulse Rate 93 Respiratory Rate 24 Blood Pressure 148/72 O2 Sat by Pulse Oximetry 94 Intake and Output: Intake & Output 01/28/20 01/29/20 01/30/20 01/31/20 11:59 11:59 11:59 11:59 Intake Total 3037 / 3037 2985 / 2985 3079 / 3079 Output Total 1974 2800 / 2800 1625 / 1625 Balance 1062 / 1062 185 / 185 1454 / 1454 - Physical Exam Oriented: Normal Eyes: Normal Ear: Normal Nose: Normal Throat: Normal Respiratory: Diminished Cardiovascular: Normal : Normal Auscultation: Bowel Sounds: Normal Palpation: Normal Tenderness: Normal Skin: Normal Musculoskeletal: Normal Psychiatric: Normal Mood Description: Calm Affect: Normal Speech Pattern: Clear, Appropriate - Laboratory and Diagnostics Result Diagrams: 01/30/20 04:43 01/30/20 04:43 Labs: 01/23/20 19:25 Blood Blood Culture - Final 01/23/20 19:15 Blood Blood Culture - Final 01/23/20 21:18 Sputum - Expectorated Sputum Sputum Culture - Final 01/23/20 21:18 Sputum - Expectorated Sputum - Final Laboratory WBC 11.0 X10^3/uL (3.6-10.0) H 01/30/20 04:43 RBC 5.04 X10^6/uL (3.5-5.4) 01/30/20 04:43 Hgb 14.5 g/dL (12.0-16.0) 01/30/20 04:43 Hct 44.6 % (36.0-47.0) 01/30/20 04:43 MCV 88.6 fL (80.0-100.0) 01/30/20 04:43 MCH 28.8 pg (27.0-34.0) 01/30/20 04:43 MCHC 32.5 g/dL (33.0-35.0) L 01/30/20 04:43 RDW 14.1 % (11.6-16.5) 01/30/20 04:43 Plt Count 155 X10^3/uL (150.0-450.0) 01/30/20 04:43 Plt Count Comment Adequate (ADEQUATE) 01/30/20 04:43 MPV 8.4 fL (7.4-11.0) 01/30/20 04:43 Neut % (Auto) 90.3 % (42.0-75.0) H 01/30/20 04:43 Lymph % (Auto) 5.4 % (21.0-51.0) L 01/30/20 04:43 [place] % (Auto) 4.2 % (0.0-13.0) 01/30/20 04:43 Eos % (Auto) 0.0 % (0.9-2.9) L 01/30/20 04:43 Baso % (Auto) 0.1 % (0.2-1.0) L 01/30/20 04:43 Neut # (Auto) 9.9 x10^3/uL (2.2-4.8) H 01/30/20 04:43 Lymph # (Auto) 0.6 X10^3/uL (1.3-2.9) L 01/30/20 04:43 [place] # (Auto) 0.5 x10^3/uL (0.3-0.8) 01/30/20 04:43 Eos # (Auto) 0.0 x10^3/uL (0.0-0.2) 01/30/20 04:43 Baso # (Auto) 0.0 X10^3/uL (0.0-0.1) 01/30/20 04:43 Absolute Nucleated RBC 0.0 /100WBC 01/30/20 04:43 Total Counted 100 01/30/20 04:43 Neutrophils % (Manual) 85 % (39-76) H 01/30/20 04:43 Band Neutrophils % 3 % (0-10) 01/30/20 04:43 Lymphocytes % (Manual) 8 % (13-43) L 01/30/20 04:43 Monocytes % (Manual) 4 % (4-9) 01/30/20 04:43 Nucleated RBCs 1 01/26/20 06:23 Plt Morphology Comment Normal (NORMAL) 01/30/20 04:43 RBC Morphology Normal (NORMAL) 01/30/20 04:43 Sample Site [place] 01/30/20 06:26 ABG pH 7.460 (7.35-7.45) H 01/30/20 06:26 ABG pCO2 46.0 mmHg (35.0-45.0) H 01/30/20 06:26 ABG pO2 74.0 mmHg (80.0-100.0) L 01/30/20 06:26 ABG HCO3 32.7 mmol/L (22-26) H* 01/30/20 06:26 ABG O2 Saturation 95.0 % (90-100) 01/30/20 06:26 ABG Base Excess 7.8 mmol/L (-2.0-2.0) H 01/30/20 06:26 Durga Test Pos 01/30/20 06:26 A-a Gradient 439.0 mmHg 01/30/20 06:26 FiO2 80.0 01/30/20 06:26 Blood Gas Comments Janessa abg well-mtf 01/30/20 06:26 Sodium 142 mmol/L (136-145) 01/30/20 04:43 Corrected Sodium 143 mmol/L (136-145) 01/30/20 04:43 Potassium 4.4 mmol/L (3.5-5.1) 01/30/20 04:43 Chloride 104 mmol/L (98-107) 01/30/20 04:43 Carbon Dioxide 29.8 mmol/L (21-32) 01/30/20 04:43 BUN 25 mg/dL (7-18) H 01/30/20 04:43 Creatinine 0.99 mg/dL (0.55-1.02) 01/30/20 04:43 Est GFR (MDRD) Af Amer > 60 (>60) 01/30/20 04:43 Est GFR (MDRD) Non-Af 60 (>60) 01/30/20 04:43 Glucose 134 mg/dL (65-99) H 01/30/20 04:43 Calcium 8.4 mg/dL (8.5-10.1) L 01/30/20 04:43 Corrected Calcium 9.4 mg/dL (8.5-10.1) 01/30/20 04:43 Ferritin 672 ng/mL (8-252) H 01/30/20 04:43 Total Bilirubin 0.40 mg/dL (0.2-1.0) 01/30/20 04:43 AST 52 Units/L (15-37) H 01/30/20 04:43 ALT 39 Units/L (12-78) 01/30/20 04:43 Alkaline Phosphatase 87 Units/L (46-116) 01/30/20 04:43 Creatine Kinase 140 Units/L (26-192) 01/24/20 05:10 CK-MB (CK-2) 1.0 ng/mL (0-4.0) 01/24/20 05:10 CK/CKMB % Calc 0.7 % (<4) 01/24/20 05:10 Troponin I < 0.02 ng/mL (0-1.5) 01/24/20 05:10 C-Reactive Protein 4.60 mg/L (0-3.0) H 01/30/20 04:43 B-Natriuretic Peptide 14.9 pg/mL (0-79) 01/24/20 05:10 Total Protein 6.4 g/dL (6.4-8.2) 01/30/20 04:43 Albumin 2.7 g/dL (3.4-5.0) L 01/30/20 04:43 Globulin 3.7 g/dL (2.5-4.5) 01/30/20 04:43 Albumin/Globulin Ratio 0.7 Ratio (1.1-2.1) L 01/30/20 04:43 Specimen Type Catherized urine 01/27/20 11:30 Urine Color Pale yellow (YELLOW) 01/27/20 11:30 Urine Appearance Clear (CLEAR) 01/27/20 11:30 Urine pH 6.0 (5.0 - 8.0) 01/27/20 11:30 Ur Specific [place] 1.020 (1.000-1.030) 01/27/20 11:30 Urine Protein Negative (NEGATIVE) 01/27/20 11:30 Urine Glucose (UA) Negative (NEGATIVE) 01/27/20 11:30 Urine Ketones Negative (NEGATIVE) 01/27/20 11:30 Urine Occult Blood Negative (NEGATIVE) 01/27/20 11:30 Urine Nitrite Negative (NEGATIVE) 01/27/20 11:30 Urine Bilirubin Negative (NEGATIVE) 01/27/20 11:30 Urine Urobilinogen Normal (NORMAL) 01/27/20 11:30 Ur Leukocyte Esterase Negative (NEGATIVE) 01/27/20 11:30 - Plan (1) Pneumonia Status: Acute Qualifiers: Pneumonia type: due to unspecified organism Laterality: unspecified laterality Lung location: unspecified part of lung Qualified Code(s): J18.9 - Pneumonia, unspecified organism Plan: 1/2NS AT [facility], LEVAQUIN 500MG IV DAILY, REMDESIVIR 100MG IV DAILY, DUONEBS QID, PULMICORT NEBS BID, TUSSIONEX 5ML PO Q12H PRN, ROBITUSSIN DM 10 ML PO QID, PROBIOTICS DAILY, SOLU-MEDROL 80MG IV Q8H, ZINC 220MG PO DAILY. (2) COVID-19 Status: Acute
[2020-01-30] MEDS: REMDESIVIR 100 MG in NS 250 ML IV 250 ML IV SCH (20:23)
[2020-01-30] MEDS: LUMIGAN OPHTH AFFEYE SCH (20:25)
[2020-01-30] MEDS: XANAX PO PRN (20:58)
[2020-01-31] MEDS: LEVAQUIN PREMIX IV 500 MG 500 MG/100 ML BAG IV SCH (00:43)
[2020-01-31] MEDS: SOLU-Medrol 40 MG VIAL IVP SCH ×3 (05:08→21:52)
[2020-01-31] MEDS: TUSSIONEX PENNKINETIC SUSP PO PRN (05:08)
[2020-01-31 05:12] LABS: ABG ALLEN TEST POS; ABG BASE EXCESS 5.9 mmol/L (-2.0-2.0); ABG HCO3 31.2 mmol/L (22-26)
--- NOTE | 2020-01-31 06:00 | RAD ---
HISTORYShortness of breathSTUDYChest AP [id number] heart remains enlarged. No definite congestive heart failure is identified. Lungs remain hypoinflated. Bilateral interstitial and some ground-glass infiltrates are present right greater than left and unchanged from the prior examination. No pleural effusions are identified. Bony thorax is unremarkable.IMPRESSIONCardiomegaly without congestive heart failure, unchangedBilateral interstitial and some ground-glass infiltrates right greater than left unchangedHypo inflation unchanged.Electronically signed by: KATIE SILVA (Jan 31, 2020 05:58:29)
[2020-01-31 06:09] LABS: BASOPHILS % (AUTO) 0.3 % (0.2-1.0); HEMATOCRIT 47.2 % (36.0-47.0); HEMOGLOBIN 15.5 g/dL (12.0-16.0); LYMPHOCYTES # (AUTO) 0.4 X10^3/uL (1.3-2.9); LYMPHOCYTES % (AUTO) 3.7 % (21.0-51.0); MEAN CORPUSCULAR HEMOGLOBIN 28.8 pg (27.0-34.0); MEAN CORPUSCULAR HGB CONC 32.9 g/dL (33.0-35.0); MEAN CORPUSCULAR VOLUME 87.4 fL (80.0-100.0); MONOCYTES # (AUTO) 0.3 x10^3/uL (0.3-0.8); MONOCYTES % (AUTO) 2.8 % (0.0-13.0); NEUTROPHILS # (AUTO) 9.8 x10^3/uL (2.2-4.8); NEUTROPHILS % (AUTO) 93.2 % (42.0-75.0); PLATELET COUNT 156 X10^3/uL (150.0-450.0); WHITE BLOOD COUNT 10.5 X10^3/uL (3.6-10.0)
[2020-01-31 06:10] LABS: CALCIUM 8.6 mg/dL (8.5-10.1); CARBON DIOXIDE 32.5 mmol/L (21-32); COR CA(FOR HYPOALB) 9.4 mg/dL (8.5-10.1); CREATININE 1.22 mg/dL (0.55-1.02)
[2020-01-31 07:03] LABS: PLATELET MORPHOLOGY COMMENT NORMAL (NORMAL)
[2020-01-31] MEDS ORDERED: NS 1/2 1,000 ML IV 1,000 ML IV ONE (07:54)
[2020-01-31] MEDS: PULMICORT NEB TX 0.5 MG NEB SCH ×2 (08:10→20:57)
[2020-01-31] MEDS: DUONEB 0.5 MG/3 MG (3 mL) NEB SCH ×4 (08:10→20:57)
[2020-01-31] MEDS: ROBITUSSIN DM PO SCH ×4 (08:37→20:22)
[2020-01-31] MEDS: NS 1/2 1,000 ML IV 1,000 ML IV SCH (08:37)
[2020-01-31] MEDS: VSL#3 PO SCH (08:38)
[2020-01-31] MEDS: LOVENOX INJ 40 MG SYR SC SCH (08:38)
[2020-01-31] MEDS: ZINC SULFATE PO SCH (08:38)
[2020-01-31] MEDS: ZESTRIL TAB 10 MG PO SCH (08:38)
[2020-01-31] MEDS: PROTONIX TAB 40 MG PO SCH (08:38)
[2020-01-31] MEDS: MAGIC MOUTHWASH (Orig. Formula) MT SCH ×4 (08:56→20:22)
--- NOTE | 2020-01-31 11:36 | PCM.PROG ---
Progress Note - Progress Note for Day of Date of Exam: 01/31/20 - Subjective Subjective: IS BEING TREATED FOR PNEUMONIA DUE TO COVID-19 AND HYPOXIA. TODAY, SHE IS ALERT AND ORIENTED, LYING IN BED ON MORNING ROUNDS. SHE CONTINUES WITH COMPLAINTS OF COUGH, SHORTNESS OF BREATH, AND WEAKNESS THIS MORNING. SHE REPORTS ONLY SLIGHT IMPROVEMENT IN SYMTPOMS. SHE IS CURRENTLY UTI LIZING HEATED HIGH FLOW OXYGEN. SHE IS ALSO UTILIZING THE BIPAP AT NIGHT. OXYGEN SATURATIONS THROUGHOUT THE NIGHT HAVE BEEN 88-92% ON BIPAP/HHF OXYGEN. ON EXAMINATION, HEART IS REGULAR IN RATE AND RHYTHM. BILATERAL LUNGS ARE NOTED WITH DIMINISHED LUNG SOUNDS THROUGHOUT. ABDOMEN IS ROUND, SOFT, AND NON-TENDER WITH NORMAL BOWEL SOUNDS NOTED IN ALL QUADRANTS. HIS VITALS THIS MORNING ARE: 97.5-86-26-87%HHF-140/77. LABS WERE OBTAINED. ABNORMAL LAB VALUES INCLUDE THE FOLLOWING: WBC 10.5, HCT 47.2, CARBON DIOXIDE 32.5, BUN 26, CREATININE 1.22, GLUCOSE 149, FERRITIN 803, AST 49, ALBUMIN 3.0. BLOOD AND SPUTUM CULTURES ARE PENDING. A CHEST XRAY WAS OBTAINED THIS MORNING AND REVEALED: Cardiomegaly with out congestive heart failure, unchanged. Bilateral interstitial and some ground- glass infiltrates right greater than left unchanged. Hypo inflation unchanged. SHE IS CURRENTLY RECEIVING 1/2NS AT [facility], LEVAQUIN 500MG IV DAILY, REMDESIVIR 100MG IV DAILY, DUONEBS QID, PULMICORT NEBS BID, TUSSIONEX 5ML PO Q12H PRN, ROBITUSSIN DM 10 ML PO QID, PROBIOTICS DAILY, SOLU-MEDROL 80MG IV Q8H, ZINC 220MG PO DAILY, FIORICET 1 TAB PO Q4H PRN, LOMOTIL 1 TAB PO QID PRN, XANAX 0.25MG PO BID PRN, LOVENOX 40MG SC DAILY. WE WILL CONTINUE WITH CURRENT PLAN OF CARE TODAY. OTHERWISE, WE PLAN TO FOLLOW UP WITH AM LABS AND CHEST XRAY AND CONTINUE TO MONITOR. - Past Medical Family Social History Past Med/Fam/Surg Hx: No changes since H&P Allergies: Allergies Penicillins Allergy (Verified 01/23/20 20:30) Sulfa (Sulfonamide Antibiotics) [SULFA] Allergy (Verified 01/23/20 20:30) - Review of Systems ROS: No change since H&P - Vital Signs and I&O's Vital Signs: Temperature 97.5 F Pulse Rate 108 Respiratory Rate 18 Blood Pressure 140/77 O2 Sat by Pulse Oximetry 91 Intake and Output: Intake & Output 01/28/20 01/29/20 01/30/20 01/31/20 11:59 11:59 11:59 11:59 Intake Total 3037 / 3037 2985 / 2985 3079 / 3079 2510 / 2510 Output Total 1974 2800 / 2800 1625 / 1625 1850 / 1850 Balance 1062 / 1062 185 / 185 1454 / 1454 660 / 660 - Physical Exam Oriented: Normal Eyes: Normal Ear: Normal Nose: Normal Throat: Normal Respiratory: Diminished Cardiovascular: Normal : Normal Auscultation: Bowel Sounds: Normal Tenderness: Normal Skin: Normal Musculoskeletal: Normal Psychiatric: Normal Mood Description: Calm Affect: Normal Speech Pattern: Clear, Appropriate - Laboratory and Diagnostics Result Diagrams: 01/31/20 04:50 01/31/20 04:50 Labs: 01/23/20 19:25 Blood Blood Culture - Final 01/23/20 19:15 Blood Blood Culture - Final 01/23/20 21:18 Sputum - Expectorated Sputum Sputum Culture - Final 01/23/20 21:18 Sputum - Expectorated Sputum - Final Laboratory WBC 10.5 X10^3/uL (3.6-10.0) H 01/31/20 04:50 RBC 5.40 X10^6/uL (3.5-5.4) 01/31/20 04:50 Hgb 15.5 g/dL (12.0-16.0) 01/31/20 04:50 Hct 47.2 % (36.0-47.0) H 01/31/20 04:50 MCV 87.4 fL (80.0-100.0) 01/31/20 04:50 MCH 28.8 pg (27.0-34.0) 01/31/20 04:50 MCHC 32.9 g/dL (33.0-35.0) L 01/31/20 04:50 RDW 14.0 % (11.6-16.5) 01/31/20 04:50 Plt Count 156 X10^3/uL (150.0-450.0) 01/31/20 04:50 Plt Count Comment Adequate (ADEQUATE) 01/31/20 04:50 MPV 8.0 fL (7.4-11.0) 01/31/20 04:50 Neut % (Auto) 93.2 % (42.0-75.0) H 01/31/20 04:50 Lymph % (Auto) 3.7 % (21.0-51.0) L 01/31/20 04:50 [place] % (Auto) 2.8 % (0.0-13.0) 01/31/20 04:50 Eos % (Auto) 0.0 % (0.9-2.9) L 01/31/20 04:50 Baso % (Auto) 0.3 % (0.2-1.0) 01/31/20 04:50 Neut # (Auto) 9.8 x10^3/uL (2.2-4.8) H 01/31/20 04:50 Lymph # (Auto) 0.4 X10^3/uL (1.3-2.9) L 01/31/20 04:50 [place] # (Auto) 0.3 x10^3/uL (0.3-0.8) 01/31/20 04:50 Eos # (Auto) 0.0 x10^3/uL (0.0-0.2) 01/31/20 04:50 Baso # (Auto) 0.0 X10^3/uL (0.0-0.1) 01/31/20 04:50 Absolute Nucleated RBC 0.1 /100WBC 01/31/20 04:50 Total Counted 100 01/31/20 04:50 Neutrophils % (Manual) 92 % (39-76) H 01/31/20 04:50 Band Neutrophils % 3 % (0-10) 01/30/20 04:43 Lymphocytes % (Manual) 6 % (13-43) L 01/31/20 04:50 Monocytes % (Manual) 2 % (4-9) L 01/31/20 04:50 Nucleated RBCs 1 01/26/20 06:23 Plt Morphology Comment Normal (NORMAL) 01/31/20 04:50 RBC Morphology Normal (NORMAL) 01/31/20 04:50 Sample Site Lr 01/31/20 05:05 ABG pH 7.430 (7.35-7.45) 01/31/20 05:05 ABG pCO2 47.0 mmHg (35.0-45.0) H 01/31/20 05:05 ABG pO2 60.0 mmHg (80.0-100.0) L 01/31/20 05:05 ABG HCO3 31.2 mmol/L (22-26) H* 01/31/20 05:05 ABG O2 Saturation 91.0 % (90-100) 01/31/20 05:05 ABG Base Excess 5.9 mmol/L (-2.0-2.0) H 01/31/20 05:05 Durga Test Pos 01/31/20 05:05 A-a Gradient 473.0 mmHg 01/31/20 05:05 FiO2 83.0 01/31/20 05:05 Blood Gas Comments Janessa well ae 01/31/20 05:05 Sodium 141 mmol/L (136-145) 01/31/20 04:50 Corrected Sodium 142 mmol/L (136-145) 01/31/20 04:50 Potassium 4.3 mmol/L (3.5-5.1) 01/31/20 04:50 Chloride 104 mmol/L (98-107) 01/31/20 04:50 Carbon Dioxide 32.5 mmol/L (21-32) H 01/31/20 04:50 BUN 26 mg/dL (7-18) H 01/31/20 04:50 Creatinine 1.22 mg/dL (0.55-1.02) H 01/31/20 04:50 Est GFR (MDRD) Af Amer 57 (>60) L 01/31/20 04:50 Est GFR (MDRD) Non-Af 47 (>60) L 01/31/20 04:50 Glucose 149 mg/dL (65-99) H 01/31/20 04:50 Calcium 8.6 mg/dL (8.5-10.1) 01/31/20 04:50 Corrected Calcium 9.4 mg/dL (8.5-10.1) 01/31/20 04:50 Ferritin 803 ng/mL (8-252) H 01/31/20 04:50 Total Bilirubin 0.40 mg/dL (0.2-1.0) 01/31/20 04:50 AST 49 Units/L (15-37) H 01/31/20 04:50 ALT 40 Units/L (12-78) 01/31/20 04:50 Alkaline Phosphatase 97 Units/L (46-116) 01/31/20 04:50 Creatine Kinase 140 Units/L (26-192) 01/24/20 05:10 CK-MB (CK-2) 1.0 ng/mL (0-4.0) 01/24/20 05:10 CK/CKMB % Calc 0.7 % (<4) 01/24/20 05:10 Troponin I < 0.02 ng/mL (0-1.5) 01/24/20 05:10 C-Reactive Protein 2.50 mg/L (0-3.0) 01/31/20 04:50 B-Natriuretic Peptide 14.9 pg/mL (0-79) 01/24/20 05:10 Total Protein 7.0 g/dL (6.4-8.2) 01/31/20 04:50 Albumin 3.0 g/dL (3.4-5.0) L 01/31/20 04:50 Globulin 4.0 g/dL (2.5-4.5) 01/31/20 04:50 Albumin/Globulin Ratio 0.8 Ratio (1.1-2.1) L 01/31/20 04:50 Specimen Type Catherized urine 01/27/20 11:30 Urine Color Pale yellow (YELLOW) 01/27/20 11:30 Urine Appearance Clear (CLEAR) 01/27/20 11:30 Urine pH 6.0 (5.0 - 8.0) 01/27/20 11:30 Ur Specific [place] 1.020 (1.000-1.030) 01/27/20 11:30 Urine Protein Negative (NEGATIVE) 01/27/20 11:30 Urine Glucose (UA) Negative (NEGATIVE) 01/27/20 11:30 Urine Ketones Negative (NEGATIVE) 01/27/20 11:30 Urine Occult Blood Negative (NEGATIVE) 01/27/20 11:30 Urine Nitrite Negative (NEGATIVE) 01/27/20 11:30 Urine Bilirubin Negative (NEGATIVE) 01/27/20 11:30 Urine Urobilinogen Normal (NORMAL) 01/27/20 11:30 Ur Leukocyte Esterase Negative (NEGATIVE) 01/27/20 11:30 - Plan (1) Pneumonia Status: Acute Qualifiers: Pneumonia type: due to unspecified organism Laterality: unspecified laterality Lung location: unspecified part of lung Qualified Code(s): J18.9 - Pneumonia, unspecified organism Plan: 1/2NS AT [facility], LEVAQUIN 500MG IV DAILY, REMDESIVIR 100MG IV DAILY, DUONEBS QID, PULMICORT NEBS BID, TUSSIONEX 5ML PO Q12H PRN, ROBITUSSIN DM 10 ML PO QID, PROBIOTICS DAILY, SOLU-MEDROL 80MG IV Q8H, ZINC 220MG PO DAILY. (2) COVID-19 Status: Acute
[2020-01-31] MEDS: XANAX PO PRN (20:22)
[2020-01-31] MEDS: LUMIGAN OPHTH AFFEYE SCH (20:22)
[2020-01-31] MEDS: REMDESIVIR 100 MG in NS 250 ML IV 250 ML IV SCH (20:22)
[2020-01-31] MEDS ORDERED: PULMICORT NEB TX 0.5 MG NEB ONE (20:23)
[2020-01-31] MEDS ORDERED: DUONEB 0.5 MG/3 MG (3 mL) NEB ONE (20:23)
[2020-02-01] MEDS: NS 1/2 1,000 ML IV 1,000 ML IV SCH ×3 (00:11→14:07)
[2020-02-01] MEDS: LEVAQUIN PREMIX IV 500 MG 500 MG/100 ML BAG IV SCH ×2 (00:11→23:49)
[2020-02-01] MEDS: SOLU-Medrol 40 MG VIAL IVP SCH ×3 (05:01→21:52)
[2020-02-01] MEDS: TUSSIONEX PENNKINETIC SUSP PO PRN ×3 (05:02→20:47)
[2020-02-01 05:21] LABS: ABG BASE EXCESS 5.9 mmol/L (-2.0-2.0)
[2020-02-01 05:22] LABS: BASOPHILS # (AUTO) 0.1 X10^3/uL (0.0-0.1); BASOPHILS % (AUTO) 0.5 % (0.2-1.0); EOSINOPHILS % (AUTO) 0.1 % (0.9-2.9); HEMATOCRIT 46.4 % (36.0-47.0); HEMOGLOBIN 14.9 g/dL (12.0-16.0); LYMPHOCYTES # (AUTO) 0.4 X10^3/uL (1.3-2.9); LYMPHOCYTES % (AUTO) 3.6 % (21.0-51.0); MEAN CORPUSCULAR HEMOGLOBIN 28.4 pg (27.0-34.0); MEAN CORPUSCULAR HGB CONC 32.2 g/dL (33.0-35.0); MEAN PLATELET VOLUME 8.2 fL (7.4-11.0); MONOCYTES # (AUTO) 0.2 x10^3/uL (0.3-0.8); MONOCYTES % (AUTO) 1.8 % (0.0-13.0); PLATELET COUNT 148 X10^3/uL (150.0-450.0); RED BLOOD COUNT 5.27 X10^6/uL (3.5-5.4); RED CELL DISTRIBUTION WIDTH 14.1 % (11.6-16.5); WHITE BLOOD COUNT 11.7 X10^3/uL (3.6-10.0)
[2020-02-01 05:22] LABS: ABG ALLEN TEST POS; ABG HCO3 31.2 mmol/L (22-26)
[2020-02-01 05:39] LABS: ALBUMIN 2.9 g/dL (3.4-5.0); CALCIUM 8.4 mg/dL (8.5-10.1); CARBON DIOXIDE 31.1 mmol/L (21-32); COR CA(FOR HYPOALB) 9.3 mg/dL (8.5-10.1); CREATININE 1.17 mg/dL (0.55-1.02); TOTAL PROTEIN 6.4 g/dL (6.4-8.2)
[2020-02-01 06:19] LABS: PLATELET MORPHOLOGY COMMENT NORMAL (NORMAL)
--- NOTE | 2020-02-01 07:06 | RAD ---
HISTORYSOBSTUDYPortable AP [id number] is no change in appearance of heart or lungs. Cardiac size is stable. Persistent infiltrates are again noted, right lung greater than left. No new abnormality is noted.IMPRESSIONNo change in appearance of the chest since 1 day prior.Electronically signed by: NATHANIEL ALMEIDA (Feb 01, 2020 07:05:04)
[2020-02-01] MEDS ORDERED: NS 1/2 1,000 ML IV 1,000 ML IV ONE (07:46)
[2020-02-01] MEDS: ROBITUSSIN DM PO SCH ×4 (08:20→20:47)
[2020-02-01] MEDS: LOVENOX INJ 40 MG SYR SC SCH (08:20)
[2020-02-01] MEDS: MAGIC MOUTHWASH (Orig. Formula) MT SCH ×4 (08:20→20:46)
[2020-02-01] MEDS: VSL#3 PO SCH (08:21)
[2020-02-01] MEDS: ZINC SULFATE PO SCH (08:21)
[2020-02-01] MEDS: PROTONIX TAB 40 MG PO SCH (08:21)
[2020-02-01] MEDS: ZESTRIL TAB 10 MG PO SCH (08:22)
[2020-02-01] MEDS: PULMICORT NEB TX 0.5 MG NEB SCH ×2 (09:25→21:12)
[2020-02-01] MEDS: DUONEB 0.5 MG/3 MG (3 mL) NEB SCH ×4 (09:25→21:12)
[2020-02-01] MEDS: REMDESIVIR 100 MG in NS 250 ML IV 250 ML IV SCH (20:46)
[2020-02-01] MEDS: LUMIGAN OPHTH AFFEYE SCH (20:46)
[2020-02-01] MEDS: XANAX PO PRN (20:47)
[2020-02-01 23:55] LABS: ABG BASE EXCESS 5.1 mmol/L (-2.0-2.0)
[2020-02-01 23:57] LABS: ABG ALLEN TEST POS
[2020-02-02] MEDS ORDERED: DUONEB 0.5 MG/3 MG (3 mL) NEB ONE (00:18)
[2020-02-02] MEDS: DUONEB 0.5 MG/3 MG (3 mL) NEB SCH ×5 (00:43→21:34)
[2020-02-02] MEDS ORDERED: NS 1/2 1,000 ML IV 1,000 ML IV ONE (03:56)
[2020-02-02] MEDS: NS 1/2 1,000 ML IV 1,000 ML IV SCH ×2 (04:48→16:45)
[2020-02-02] MEDS: SOLU-Medrol 40 MG VIAL IVP SCH ×3 (05:01→21:07)
[2020-02-02 05:04] LABS: ABG BASE EXCESS 6.1 mmol/L (-2.0-2.0)
[2020-02-02 05:05] LABS: ABG HCO3 31.2 mmol/L (22-26)
[2020-02-02 05:06] LABS: ABG ALLEN TEST POS
[2020-02-02 05:26] LABS: BASOPHILS % (AUTO) 0.1 % (0.2-1.0); EOSINOPHILS % (AUTO) 0.2 % (0.9-2.9); HEMATOCRIT 41.4 % (36.0-47.0); HEMOGLOBIN 13.5 g/dL (12.0-16.0); LYMPHOCYTES # (AUTO) 0.4 X10^3/uL (1.3-2.9); LYMPHOCYTES % (AUTO) 3.8 % (21.0-51.0); MEAN CORPUSCULAR HEMOGLOBIN 28.7 pg (27.0-34.0); MEAN CORPUSCULAR HGB CONC 32.7 g/dL (33.0-35.0); MEAN CORPUSCULAR VOLUME 87.9 fL (80.0-100.0); MEAN PLATELET VOLUME 8.2 fL (7.4-11.0); MONOCYTES # (AUTO) 0.2 x10^3/uL (0.3-0.8); MONOCYTES % (AUTO) 1.8 % (0.0-13.0); NEUTROPHILS # (AUTO) 10.3 x10^3/uL (2.2-4.8); NEUTROPHILS % (AUTO) 94.1 % (42.0-75.0); PLATELET COUNT 117 X10^3/uL (150.0-450.0); RED BLOOD COUNT 4.71 X10^6/uL (3.5-5.4); RED CELL DISTRIBUTION WIDTH 14.1 % (11.6-16.5)
[2020-02-02 05:47] LABS: ALANINE AMINOTRANSFERASE 45 Units/L (12-78); ALBUMIN 2.5 g/dL (3.4-5.0); ALKALINE PHOSPHATASE 90 Units/L (46-116); ASPARTATE AMINO TRANSFERASE 46 Units/L (15-37); BLOOD UREA NITROGEN 21 mg/dL (7-18); CALCIUM 8.2 mg/dL (8.5-10.1); CARBON DIOXIDE 29.2 mmol/L (21-32); CHLORIDE 106 mmol/L (98-107); COR CA(FOR HYPOALB) 9.4 mg/dL (8.5-10.1); COR NA(FOR HYPERGLY) 142 mmol/L (136-145); SODIUM 141 mmol/L (136-145); TOTAL PROTEIN 5.6 g/dL (6.4-8.2); eGFR NON BLACK RACES 59 (>60)
[2020-02-02 06:04] LABS: PLATELET MORPHOLOGY COMMENT NORMAL (NORMAL)
--- NOTE | 2020-02-02 06:35 | RAD ---
HISTORYSOBSTUDYAP [id number] is no interval change in appearance of heart, lungs or mediastinum. Cardiomegaly again noted with diffuse bilateral mixed interstitial-alveolar infiltrates. No pneumothorax or developing pleural fluid identified.IMPRESSIONNo change. The described pulmonary infiltrates may represent diffuse bilateral pneumonia although some element of pulmonary edema may be present.Electronically signed by: NATHANIEL ALMEIDA (Feb 02, 2020 06:34:43)
[2020-02-02] MEDS: MORPHINE SULFATE INJ 2 MG INJ IVP PRN ×3 (07:50→21:10)
[2020-02-02] MEDS: LOVENOX INJ 40 MG SYR SC SCH (08:38)
[2020-02-02] MEDS: ROBITUSSIN DM PO SCH ×4 (08:38→20:02)
[2020-02-02] MEDS: PROTONIX TAB 40 MG PO SCH (08:39)
[2020-02-02] MEDS: ZINC SULFATE PO SCH (08:39)
[2020-02-02] MEDS: ZESTRIL TAB 10 MG PO SCH (08:39)
[2020-02-02] MEDS: MAGIC MOUTHWASH (Orig. Formula) MT SCH ×4 (08:39→20:01)
[2020-02-02] MEDS: VSL#3 PO SCH (08:40)
[2020-02-02] MEDS: PULMICORT NEB TX 0.5 MG NEB SCH ×2 (09:40→21:34)
[2020-02-02] MEDS: LASIX IVP SCH (16:43)
[2020-02-02] MEDS: REMDESIVIR 100 MG in NS 250 ML IV 250 ML IV SCH (20:00)
[2020-02-02] MEDS: LUMIGAN OPHTH AFFEYE SCH (20:00)
[2020-02-02] MEDS: XANAX PO PRN (20:02)
[2020-02-02] MEDS: TUSSIONEX PENNKINETIC SUSP PO PRN (20:02)
[2020-02-03] MEDS: LEVAQUIN PREMIX IV 500 MG 500 MG/100 ML BAG IV SCH
[2020-02-03] MEDS: LASIX IVP SCH ×2 (00:30→20:00)
[2020-02-03] MEDS: MORPHINE SULFATE INJ 2 MG INJ IVP PRN (02:08)
[2020-02-03 05:12] LABS: BASOPHILS % (AUTO) 0.2 % (0.2-1.0); EOSINOPHILS % (AUTO) 0.1 % (0.9-2.9); HEMATOCRIT 41.7 % (36.0-47.0); HEMOGLOBIN 13.7 g/dL (12.0-16.0); LYMPHOCYTES # (AUTO) 0.2 X10^3/uL (1.3-2.9); LYMPHOCYTES % (AUTO) 1.6 % (21.0-51.0); MEAN CORPUSCULAR HGB CONC 32.9 g/dL (33.0-35.0); MEAN CORPUSCULAR VOLUME 88.3 fL (80.0-100.0); MEAN PLATELET VOLUME 8.3 fL (7.4-11.0); MONOCYTES # (AUTO) 0.2 x10^3/uL (0.3-0.8); MONOCYTES % (AUTO) 1.7 % (0.0-13.0); NEUTROPHILS # (AUTO) 11.2 x10^3/uL (2.2-4.8); NEUTROPHILS % (AUTO) 96.4 % (42.0-75.0); PLATELET COUNT 106 X10^3/uL (150.0-450.0); RED BLOOD COUNT 4.73 X10^6/uL (3.5-5.4); RED CELL DISTRIBUTION WIDTH 14.7 % (11.6-16.5); WHITE BLOOD COUNT 11.7 X10^3/uL (3.6-10.0)
[2020-02-03] MEDS: SOLU-Medrol 40 MG VIAL IVP SCH ×3 (05:12→22:31)
[2020-02-03 05:23] LABS: ALBUMIN 2.4 g/dL (3.4-5.0); CALCIUM 8.1 mg/dL (8.5-10.1); CARBON DIOXIDE 34.8 mmol/L (21-32); COR CA(FOR HYPOALB) 9.4 mg/dL (8.5-10.1); CREATININE 1.23 mg/dL (0.55-1.02); TOTAL PROTEIN 5.6 g/dL (6.4-8.2)
[2020-02-03 05:41] LABS: PLATELET MORPHOLOGY COMMENT NORMAL (NORMAL)
--- NOTE | 2020-02-03 05:54 | RAD ---
HISTORYFollow-up pneumoniaSTUDYChest AP [id number]/01/2020FINDINGSThe heart remains enlarged. Diffuse bilateral interstitial and some alveolar infiltrates are identified not significantly changed from the prior examination. No pleural effusions are identified. Bony thorax is unremarkable.IMPRESSIONNo change cardiomegaly without congestive heart failureNo change diffuse bilateral interstitial and alveolar infiltrates which could reflect bilateral pneumonia or edema.Electronically signed by: KATIE SILVA (Feb 03, 2020 05:52:17)
[2020-02-03 06:20] LABS: ABG BASE EXCESS 8.8 mmol/L (-2.0-2.0)
[2020-02-03 06:21] LABS: ABG ALLEN TEST POS; ABG HCO3 35.7 mmol/L (22-26)
[2020-02-03] MEDS: LOVENOX INJ 40 MG SYR SC SCH (08:39)
[2020-02-03] MEDS: VSL#3 PO SCH (08:40)
[2020-02-03] MEDS: PROTONIX TAB 40 MG PO SCH (08:40)
[2020-02-03] MEDS: ZINC SULFATE PO SCH (08:40)
[2020-02-03] MEDS: MAGIC MOUTHWASH (Orig. Formula) MT SCH ×4 (08:40→20:01)
[2020-02-03] MEDS: ROBITUSSIN DM PO SCH ×4 (08:40→20:01)
[2020-02-03] MEDS: ZESTRIL TAB 10 MG PO SCH (08:41)
[2020-02-03] MEDS: PULMICORT NEB TX 0.5 MG NEB SCH ×2 (09:35→21:00)
[2020-02-03] MEDS: DUONEB 0.5 MG/3 MG (3 mL) NEB SCH ×4 (09:35→21:00)
--- NOTE | 2020-02-03 11:07 | PCM.PROG ---
Progress Note - Progress Note for Day of Date of Exam: 02/01/20 - Subjective Subjective: IS BEING TREATED FOR PNEUMONIA DUE TO COVID-19 AND HYPOXIA. TODAY, SHE IS ALERT AND ORIENTED, LYING IN BED ON MORNING ROUNDS. SHE CONTINUES WITH COMPLAINTS OF COUGH, SHORTNESS OF BREATH, AND WEAKNESS THIS MORNING. SHE REPORTS ONLY SLIGHT IMPROVEMENT IN SYMTPOMS TODAY. SHE IS CURRENTLY UTILIZING HEATED HIGH FLOW OXYGEN. SHE IS ALSO UTILIZING THE BIPAP AT NIGHT. OXYGEN SATURATIONS THROUGHOUT THE NIGHT HAVE BEEN 88-92% ON BIPAP/HHF OXYGEN. SATURATIONS ARE VERY DEPENDENT ON POSITION. WHEN PATIENT AMBULATES OR IS SITTING UP IN CHAIR, HER SATURATIONS DROP TO THE HIGH 70s- LOW 80s. WHEN PATIENT IS PLACED BACK IN BED, SATURATIONS EVENTUALLY RETURN TO 90-93% AFTER SEVERAL MINUTES. ON EXAMINATION, HEART IS REGULAR IN RATE AND RHYTHM. BILATERAL LUNGS ARE NOTED WITH DIMINISHED LUNG SOUNDS THROUGHOUT. ABDOMEN IS ROUND, SOFT, AND NON-TENDER WITH NORMAL BOWEL SOUNDS NOTED IN ALL QUADRANTS. HIS VITALS THIS MORNING ARE: 97.5-86-26-87%HHF-140/77. LABS WERE OBTAINED. ABNORMAL LAB VALUES INCLUDE THE FOLLOWING: WBC 10.5, HCT 47.2, CARBON DIOXIDE 32.5, BUN 26, CREATININE 1.22, GLUCOSE 149, FERRITIN 803, AST 49, ALBUMIN 3.0. BLOOD AND SPUTUM CULTURES ARE PENDING. A CHEST XRAY WAS OBTAINED THIS MORNING AND REVEALED: Cardiomegaly without congestive heart failure, unchanged. Bilateral interstitial and some ground-glass infiltrates right greater than left unchanged. Hypo inflation unchanged. SHE IS CURRENTLY RECEIVING 1/2NS AT [facility], LEVAQUIN 500MG IV DAILY, REMDESIVIR 100MG IV DAILY, DUONEBS QID, PULMICORT NEBS BID, TUSSIONEX 5ML PO Q12H PRN, ROBITUSSIN DM 10 ML PO QID, PROBIOTICS DAILY, SOLU-MEDROL 80MG IV Q8H, ZINC 220MG PO DAILY, FIORICET 1 TAB PO Q4H PRN, LOMOTIL 1 TAB PO QID PRN, XANAX 0.25MG PO BID PRN, LOVENOX 40MG SC DAILY. WE DISCUSSED THE POSSIBLE NEED FOR INTUBATION AND VENTILLATION. PATIENT STATES, I THINK I FEEL A LITTLE BIT BETTER AND I WANT TO TRY TO HOLD OFF ON THAT RIGHT NOW. PATIENT REFUSED INTUBATION TODAY. WE WILL CONTINUE WITH USE OF BIPAP AND HEATED HIGH FLOW OXYGEN TODAY. OTHERWISE, WE PLAN TO FOLLOW UP WITH AM LABS AND CHEST XRAY AND CONTINUE TO MONITOR. - Past Medical Family Social History Past Med/Fam/Surg Hx: No changes since H&P Allergies: Allergies Penicillins Allergy (Verified 01/23/20 20:30) Sulfa (Sulfonamide Antibiotics) [SULFA] Allergy (Verified 01/23/20 20:30) - Review of Systems ROS: No change since H&P - Vital Signs and I&O's Vital Signs: Temperature 98.5 F Pulse Rate 109 Respiratory Rate 31 Blood Pressure 105/59 O2 Sat by Pulse Oximetry 89 Intake and Output: Intake & Output 01/31/20 02/01/20 02/02/20 02/03/20 12:59 12:59 11:59 11:59 Intake Total 1131 / 1131 Output Total 4900 / 4900 Balance -3769 / -3769 - Physical Exam Oriented: Normal Eyes: Normal Ear: Normal Nose: Normal Throat: Normal Respiratory: Diminished Cardiovascular: Normal : Normal Auscultation: Bowel Sounds: Normal Palpation: Normal Tenderness: Normal Skin: Normal Musculoskeletal: Normal Psychiatric: Normal Mood Description: Calm Affect: Normal Speech Pattern: Clear, Appropriate - Laboratory and Diagnostics Result Diagrams: 02/05/20 02:30 02/05/20 02:30 Labs: 01/23/20 19:25 Blood Blood Culture - Final 01/23/20 19:15 Blood Blood Culture - Final 01/23/20 21:18 Sputum - Expectorated Sputum Sputum Culture - Final 01/23/20 21:18 Sputum - Expectorated Sputum - Final Laboratory WBC 11.7 X10^3/uL (3.6-10.0) H 02/03/20 04:50 RBC 4.73 X10^6/uL (3.5-5.4) 02/03/20 04:50 Hgb 13.7 g/dL (12.0-16.0) 02/03/20 04:50 Hct 41.7 % (36.0-47.0) 02/03/20 04:50 MCV 88.3 fL (80.0-100.0) 02/03/20 04:50 MCH 29.0 pg (27.0-34.0) 02/03/20 04:50 MCHC 32.9 g/dL (33.0-35.0) L 02/03/20 04:50 RDW 14.7 % (11.6-16.5) 02/03/20 04:50 Plt Count 106 X10^3/uL (150.0-450.0) L 02/03/20 04:50 Plt Count Comment Decreased (ADEQUATE) A 02/03/20 04:50 MPV 8.3 fL (7.4-11.0) 02/03/20 04:50 Neut % (Auto) 96.4 % (42.0-75.0) H 02/03/20 04:50 Lymph % (Auto) 1.6 % (21.0-51.0) L 02/03/20 04:50 [place] % (Auto) 1.7 % (0.0-13.0) 02/03/20 04:50 Eos % (Auto) 0.1 % (0.9-2.9) L 02/03/20 04:50 Baso % (Auto) 0.2 % (0.2-1.0) 02/03/20 04:50 Neut # (Auto) 11.2 x10^3/uL (2.2-4.8) H 02/03/20 04:50 Lymph # (Auto) 0.2 X10^3/uL (1.3-2.9) L 02/03/20 04:50 [place] # (Auto) 0.2 x10^3/uL (0.3-0.8) L 02/03/20 04:50 Eos # (Auto) 0.0 x10^3/uL (0.0-0.2) 02/03/20 04:50 Baso # (Auto) 0.0 X10^3/uL (0.0-0.1) 02/03/20 04:50 Absolute Nucleated RBC 0.1 /100WBC 02/03/20 04:50 Total Counted 100 02/03/20 04:50 Neutrophils % (Manual) 100 % (39-76) H 02/03/20 04:50 Band Neutrophils % 3 % (0-10) 01/30/20 04:43 Lymphocytes % (Manual) Not Reportable 02/03/20 04:50 Monocytes % (Manual) 1 % (4-9) L 02/02/20 04:30 Nucleated RBCs 1 01/26/20 06:23 Plt Morphology Comment Normal (NORMAL) 02/03/20 04:50 RBC Morphology Normal (NORMAL) 02/03/20 04:50 Sample Site Lrad 02/03/20 06:15 ABG pH 7.390 (7.35-7.45) 02/03/20 06:15 ABG pCO2 59.0 mmHg (35.0-45.0) H* 02/03/20 06:15 ABG pO2 68.0 mmHg (80.0-100.0) L 02/03/20 06:15 ABG HCO3 35.7 mmol/L (22-26) H* 02/03/20 06:15 ABG O2 Saturation 93.0 % (90-100) 02/03/20 06:15 ABG Base Excess 8.8 mmol/L (-2.0-2.0) H 02/03/20 06:15 Durga Test Pos 02/03/20 06:15 A-a Gradient 571.0 mmHg 02/03/20 06:15 FiO2 100.0 02/03/20 06:15 Blood Gas Comments Janessa abg well-mtf 02/03/20 06:15 Sodium 142 mmol/L (136-145) 02/03/20 04:50 Corrected Sodium 144 mmol/L (136-145) 02/03/20 04:50 Potassium 4.0 mmol/L (3.5-5.1) 02/03/20 04:50 Chloride 104 mmol/L (98-107) 02/03/20 04:50 Carbon Dioxide 34.8 mmol/L (21-32) H 02/03/20 04:50 BUN 25 mg/dL (7-18) H 02/03/20 04:50 Creatinine 1.23 mg/dL (0.55-1.02) H 02/03/20 04:50 Est GFR (MDRD) Af Amer 56 (>60) L 02/03/20 04:50 Est GFR (MDRD) Non-Af 47 (>60) L 02/03/20 04:50 Glucose 170 mg/dL (65-99) H 02/03/20 04:50 Calcium 8.1 mg/dL (8.5-10.1) L 02/03/20 04:50 Corrected Calcium 9.4 mg/dL (8.5-10.1) 02/03/20 04:50 Ferritin 609 ng/mL (8-252) H 02/03/20 04:50 Total Bilirubin 0.30 mg/dL (0.2-1.0) 02/03/20 04:50 AST 42 Units/L (15-37) H 02/03/20 04:50 ALT 49 Units/L (12-78) 02/03/20 04:50 Alkaline Phosphatase 93 Units/L (46-116) 02/03/20 04:50 Creatine Kinase 140 Units/L (26-192) 01/24/20 05:10 CK-MB (CK-2) 1.0 ng/mL (0-4.0) 01/24/20 05:10 CK/CKMB % Calc 0.7 % (<4) 01/24/20 05:10 Troponin I < 0.02 ng/mL (0-1.5) 01/24/20 05:10 C-Reactive Protein 6.60 mg/L (0-3.0) H 02/03/20 04:50 B-Natriuretic Peptide 20.1 pg/mL (0-79) 02/03/20 04:50 Total Protein 5.6 g/dL (6.4-8.2) L 02/03/20 04:50 Albumin 2.4 g/dL (3.4-5.0) L 02/03/20 04:50 Globulin 3.2 g/dL (2.5-4.5) 02/03/20 04:50 Albumin/Globulin Ratio 0.8 Ratio (1.1-2.1) L 02/03/20 04:50 Specimen Type Catherized urine 01/27/20 11:30 Urine Color Pale yellow (YELLOW) 01/27/20 11:30 Urine Appearance Clear (CLEAR) 01/27/20 11:30 Urine pH 6.0 (5.0 - 8.0) 01/27/20 11:30 Ur Specific [place] 1.020 (1.000-1.030) 01/27/20 11:30 Urine Protein Negative (NEGATIVE) 01/27/20 11:30 Urine Glucose (UA) Negative (NEGATIVE) 01/27/20 11:30 Urine Ketones Negative (NEGATIVE) 01/27/20 11:30 Urine Occult Blood Negative (NEGATIVE) 01/27/20 11:30 Urine Nitrite Negative (NEGATIVE) 01/27/20 11:30 Urine Bilirubin Negative (NEGATIVE) 01/27/20 11:30 Urine Urobilinogen Normal (NORMAL) 01/27/20 11:30 Ur Leukocyte Esterase Negative (NEGATIVE) 01/27/20 11:30 - Plan (1) Pneumonia Status: Acute Qualifiers: Pneumonia type: due to unspecified organism Laterality: unspecified laterality Lung location: unspecified part of lung Qualified Code(s): J18.9 - Pneumonia, unspecified organism Plan: 1/2NS AT [facility], LEVAQUIN 500MG IV DAILY, REMDESIVIR 100MG IV DAILY, DUONEBS QID, PULMICORT NEBS BID, TUSSIONEX 5ML PO Q12H PRN, ROBITUSSIN DM 10 ML PO QID, PROBIOTICS DAILY, SOLU-MEDROL 80MG IV Q8H, ZINC 220MG PO DAILY. BIPAP AND HEATED HIGH FLOW (2) COVID-19 Status: Acute (3) Hypertension Status: Chronic Qualifiers: Hypertension type: essential hypertension Qualified Code(s): I10 - Essential (primary) hypertension
--- NOTE | 2020-02-03 11:12 | PCM.PROG ---
Progress Note - Progress Note for Day of Date of Exam: 02/02/20 - Subjective Subjective: IS BEING TREATED FOR PNEUMONIA DUE TO COVID-19 AND HYPOXIA. TODAY, SHE IS ALERT AND ORIENTED, LYING IN BED ON MORNING ROUNDS. SHE CONTINUES WITH COMPLAINTS OF COUGH, SHORTNESS OF BREATH AND WEAKNESS THIS MORNING. SHE HAS AN INTERMITTENT COUGH. SHE DENIES SIGNIFICANT CHANGE OR IMPROV EMENT SINCE ONE DAY PRIO. SHE IS CURRENTLY UTILIZING HEATED HIGH FLOW OXYGEN. SHE IS ALSO UTILIZING THE BIPAP AT NIGHT. OXYGEN SATURATIONS THROUGHOUT THE NIGHT HAVE BEEN 80s ON BIPAP/HEATED HIGH FLOW OXYGEN. SATURATIONS CONTINUE TO BE DEPENDENT ON POSITION AND DROP WHILE AMBULATING OR MOVING AROUND MUCH. WHEN PATIENT AMBULATES OR IS SITTING UP IN CHAIR, HER SATURATIONS CONTINUE TO DROP TO THE HIGH 70s- LOW 80s. WHEN PATIENT IS PLACED BACK IN BED, SATURATIONS EVENTUALLY RETURN TO 90-93% AFTER SEVERAL MINUTES. SON EXAMINATION, HEART IS REGULAR IN RATE AND RHYTHM. BILATERAL LUNGS ARE NOTED WITH TAFF REPORTS THAT PATIENT OFTEN REFUSES THE BIPAP AND REQUEST TO BE PLACED ON HEATED TIFFANIE FLOW OXYGEN. ON EXAMINATION, DIMINISHED LUNG SOUNDS THROUGHOUT. ABDOMEN IS ROUND, SOFT, AND NON-TENDER WITH NORMAL BOWEL SOUNDS NOTED IN ALL QUADRANTS. HIS VITALS THIS MORNING ARE: 97.9-92-21-87%hhf-127/76. LABS WERE OBTAINED. ABNORMAL LAB VALUES INCLUDE THE FOLLOWING: WBC 11.0, PLT COUNT 117, BUN 21, GLUCOSE 142, CALCIUM 8.2, FERRITIN 621, AST 46, TOTAL PROTEIN 5.6, ALBUMIN 2.5. A CHEST XRAY WAS OBTAINED THIS MORNING AND REVEALED: No change. The described pulmonary infiltrates may represent diffuse bilateral pneumonia although some element of pulmonary edema may be present. SHE IS CURRENTLY RECEIVING 1/2NS AT [facility] LEVAQUIN 500MG IV DAILY, REMDESIVIR 100MG IV DAILY, DUONEBS QID, PULMICORT NEBS BID, TUSSIONEX 5ML PO Q12H PRN, ROBITUSSIN DM 10 ML PO QID, PROBIOTICS DAILY, SOLU-MEDROL 80MG IV Q8H, ZINC 220MG PO DAILY, FIORICET 1 TAB PO Q4H PRN, LOMOTIL 1 TAB PO QID PRN, XANAX 0.25MG PO BID PRN, LOVENOX 40MG SC DAILY. WE, AGAIN, DISCUSSED THE POSSIBLE NEED FOR INTUBATION AND VENTILLATION. PATIENT STATES, I STILL WANT TO WAIT AND CONTINUE WITH WHAT WE ARE DOING. WE WILL CONTINUE WITH USE OF BIPAP AND HEATED HIGH FLOW OXYGEN TODAY. I WILL TRY TO SPEAK WITH HER FAMILY AND UPDATE IN REGARDS TO HER CONDITION TODAY. OTHERWISE, WE PLAN TO FOLLOW UP WITH AM LABS AND CHEST XRAY AND CONTINUE TO MONITOR. - Past Medical Family Social History Past Med/Fam/Surg Hx: No changes since H&P Allergies: Allergies Penicillins Allergy (Verified 01/23/20 20:30) Sulfa (Sulfonamide Antibiotics) [SULFA] Allergy (Verified 01/23/20 20:30) - Review of Systems ROS: No change since H&P - Vital Signs and I&O's Vital Signs: Temperature 98.5 F Pulse Rate 109 Respiratory Rate 31 Blood Pressure 105/59 O2 Sat by Pulse Oximetry 89 Intake and Output: Intake & Output 01/31/20 02/01/20 02/02/20 02/03/20 12:59 12:59 11:59 11:59 Intake Total 1131 / 1131 Output Total 4900 / 4900 Balance -3769 / -3769 - Physical Exam Oriented: Normal Eyes: Normal Ear: Normal Nose: Normal Throat: Normal Respiratory: Diminished Cardiovascular: Normal : Normal Auscultation: Bowel Sounds: Normal Palpation: Normal Tenderness: Normal Skin: Normal Musculoskeletal: Normal Psychiatric: Normal Mood Description: Calm Affect: Normal Speech Pattern: Clear, Appropriate - Laboratory and Diagnostics Result Diagrams: 02/05/20 02:30 02/05/20 02:30 Labs: 01/23/20 19:25 Blood Blood Culture - Final 01/23/20 19:15 Blood Blood Culture - Final 01/23/20 21:18 Sputum - Expectorated Sputum Sputum Culture - Final 01/23/20 21:18 Sputum - Expectorated Sputum - Final Laboratory WBC 11.7 X10^3/uL (3.6-10.0) H 02/03/20 04:50 RBC 4.73 X10^6/uL (3.5-5.4) 02/03/20 04:50 Hgb 13.7 g/dL (12.0-16.0) 02/03/20 04:50 Hct 41.7 % (36.0-47.0) 02/03/20 04:50 MCV 88.3 fL (80.0-100.0) 02/03/20 04:50 MCH 29.0 pg (27.0-34.0) 02/03/20 04:50 MCHC 32.9 g/dL (33.0-35.0) L 02/03/20 04:50 RDW 14.7 % (11.6-16.5) 02/03/20 04:50 Plt Count 106 X10^3/uL (150.0-450.0) L 02/03/20 04:50 Plt Count Comment Decreased (ADEQUATE) A 02/03/20 04:50 MPV 8.3 fL (7.4-11.0) 02/03/20 04:50 Neut % (Auto) 96.4 % (42.0-75.0) H 02/03/20 04:50 Lymph % (Auto) 1.6 % (21.0-51.0) L 02/03/20 04:50 [place] % (Auto) 1.7 % (0.0-13.0) 02/03/20 04:50 Eos % (Auto) 0.1 % (0.9-2.9) L 02/03/20 04:50 Baso % (Auto) 0.2 % (0.2-1.0) 02/03/20 04:50 Neut # (Auto) 11.2 x10^3/uL (2.2-4.8) H 02/03/20 04:50 Lymph # (Auto) 0.2 X10^3/uL (1.3-2.9) L 02/03/20 04:50 [place] # (Auto) 0.2 x10^3/uL (0.3-0.8) L 02/03/20 04:50 Eos # (Auto) 0.0 x10^3/uL (0.0-0.2) 02/03/20 04:50 Baso # (Auto) 0.0 X10^3/uL (0.0-0.1) 02/03/20 04:50 Absolute Nucleated RBC 0.1 /100WBC 02/03/20 04:50 Total Counted 100 02/03/20 04:50 Neutrophils % (Manual) 100 % (39-76) H 02/03/20 04:50 Band Neutrophils % 3 % (0-10) 01/30/20 04:43 Lymphocytes % (Manual) Not Reportable 02/03/20 04:50 Monocytes % (Manual) 1 % (4-9) L 02/02/20 04:30 Nucleated RBCs 1 01/26/20 06:23 Plt Morphology Comment Normal (NORMAL) 02/03/20 04:50 RBC Morphology Normal (NORMAL) 02/03/20 04:50 Sample Site Lrad 02/03/20 06:15 ABG pH 7.390 (7.35-7.45) 02/03/20 06:15 ABG pCO2 59.0 mmHg (35.0-45.0) H* 02/03/20 06:15 ABG pO2 68.0 mmHg (80.0-100.0) L 02/03/20 06:15 ABG HCO3 35.7 mmol/L (22-26) H* 02/03/20 06:15 ABG O2 Saturation 93.0 % (90-100) 02/03/20 06:15 ABG Base Excess 8.8 mmol/L (-2.0-2.0) H 02/03/20 06:15 Durga Test Pos 02/03/20 06:15 A-a Gradient 571.0 mmHg 02/03/20 06:15 FiO2 100.0 02/03/20 06:15 Blood Gas Comments Janessa abg well-mtf 02/03/20 06:15 Sodium 142 mmol/L (136-145) 02/03/20 04:50 Corrected Sodium 144 mmol/L (136-145) 02/03/20 04:50 Potassium 4.0 mmol/L (3.5-5.1) 02/03/20 04:50 Chloride 104 mmol/L (98-107) 02/03/20 04:50 Carbon Dioxide 34.8 mmol/L (21-32) H 02/03/20 04:50 BUN 25 mg/dL (7-18) H 02/03/20 04:50 Creatinine 1.23 mg/dL (0.55-1.02) H 02/03/20 04:50 Est GFR (MDRD) Af Amer 56 (>60) L 02/03/20 04:50 Est GFR (MDRD) Non-Af 47 (>60) L 02/03/20 04:50 Glucose 170 mg/dL (65-99) H 02/03/20 04:50 Calcium 8.1 mg/dL (8.5-10.1) L 02/03/20 04:50 Corrected Calcium 9.4 mg/dL (8.5-10.1) 02/03/20 04:50 Ferritin 609 ng/mL (8-252) H 02/03/20 04:50 Total Bilirubin 0.30 mg/dL (0.2-1.0) 02/03/20 04:50 AST 42 Units/L (15-37) H 02/03/20 04:50 ALT 49 Units/L (12-78) 02/03/20 04:50 Alkaline Phosphatase 93 Units/L (46-116) 02/03/20 04:50 Creatine Kinase 140 Units/L (26-192) 01/24/20 05:10 CK-MB (CK-2) 1.0 ng/mL (0-4.0) 01/24/20 05:10 CK/CKMB % Calc 0.7 % (<4) 01/24/20 05:10 Troponin I < 0.02 ng/mL (0-1.5) 01/24/20 05:10 C-Reactive Protein 6.60 mg/L (0-3.0) H 02/03/20 04:50 B-Natriuretic Peptide 20.1 pg/mL (0-79) 02/03/20 04:50 Total Protein 5.6 g/dL (6.4-8.2) L 02/03/20 04:50 Albumin 2.4 g/dL (3.4-5.0) L 02/03/20 04:50 Globulin 3.2 g/dL (2.5-4.5) 02/03/20 04:50 Albumin/Globulin Ratio 0.8 Ratio (1.1-2.1) L 02/03/20 04:50 Specimen Type Catherized urine 01/27/20 11:30 Urine Color Pale yellow (YELLOW) 01/27/20 11:30 Urine Appearance Clear (CLEAR) 01/27/20 11:30 Urine pH 6.0 (5.0 - 8.0) 01/27/20 11:30 Ur Specific [place] 1.020 (1.000-1.030) 01/27/20 11:30 Urine Protein Negative (NEGATIVE) 01/27/20 11:30 Urine Glucose (UA) Negative (NEGATIVE) 01/27/20 11:30 Urine Ketones Negative (NEGATIVE) 01/27/20 11:30 Urine Occult Blood Negative (NEGATIVE) 01/27/20 11:30 Urine Nitrite Negative (NEGATIVE) 01/27/20 11:30 Urine Bilirubin Negative (NEGATIVE) 01/27/20 11:30 Urine Urobilinogen Normal (NORMAL) 01/27/20 11:30 Ur Leukocyte Esterase Negative (NEGATIVE) 01/27/20 11:30 - Plan (1) Pneumonia Status: Acute Qualifiers: Pneumonia type: due to unspecified organism Laterality: unspecified laterality Lung location: unspecified part of lung Qualified Code(s): J18.9 - Pneumonia, unspecified organism Plan: 1/2NS AT [facility], LEVAQUIN 500MG IV DAILY, REMDESIVIR 100MG IV DAILY, DUONEBS QID, PULMICORT NEBS BID, TUSSIONEX 5ML PO Q12H PRN, ROBITUSSIN DM 10 ML PO QID, PROBIOTICS DAILY, SOLU-MEDROL 80MG IV Q8H, ZINC 220MG PO DAILY, MORPHINE 1-2MG IV Q4H PRN, LASIX 20MG IV X 2 DOSES. BIPAP AND HEATED HIGH FLOW (2) COVID-19 Status: Acute (3) Hypertension Status: Chronic Qualifiers: Hypertension type: essential hypertension Qualified Code(s): I10 - Essential (primary) hypertension
[2020-02-03] MEDS ORDERED: LASIX ONE (19:59)
[2020-02-03] MEDS: NS 1/2 1,000 ML IV 1,000 ML IV SCH ×2 (20:00→23:30)
[2020-02-03] MEDS: REMDESIVIR 100 MG in NS 250 ML IV 250 ML IV SCH (20:00)
[2020-02-03] MEDS: XANAX PO PRN (20:01)
[2020-02-03] MEDS: TUSSIONEX PENNKINETIC SUSP PO PRN (20:01)
[2020-02-03] MEDS: LUMIGAN OPHTH AFFEYE SCH (20:01)
[2020-02-04] MEDS: LEVAQUIN PREMIX IV 500 MG 500 MG/100 ML BAG IV SCH (00:40)
[2020-02-04] MEDS: MORPHINE SULFATE INJ 2 MG INJ IVP PRN ×2 (00:44→23:45)
[2020-02-04] MEDS: DUONEB 0.5 MG/3 MG (3 mL) NEB SCH ×6 (01:20→20:00)
[2020-02-04 05:10] LABS: BASOPHILS % (AUTO) 0.1 % (0.2-1.0); EOSINOPHILS # (AUTO) 0.1 x10^3/uL (0.0-0.2); HEMATOCRIT 42.4 % (36.0-47.0); HEMOGLOBIN 13.6 g/dL (12.0-16.0); LYMPHOCYTES # (AUTO) 0.4 X10^3/uL (1.3-2.9); LYMPHOCYTES % (AUTO) 2.6 % (21.0-51.0); MEAN CORPUSCULAR HEMOGLOBIN 28.3 pg (27.0-34.0); MEAN CORPUSCULAR HGB CONC 32.2 g/dL (33.0-35.0); MEAN CORPUSCULAR VOLUME 88.1 fL (80.0-100.0); MEAN PLATELET VOLUME 8.2 fL (7.4-11.0); MONOCYTES # (AUTO) 0.2 x10^3/uL (0.3-0.8); MONOCYTES % (AUTO) 1.2 % (0.0-13.0); NEUTROPHILS # (AUTO) 13.5 x10^3/uL (2.2-4.8); NEUTROPHILS % (AUTO) 95.1 % (42.0-75.0); PLATELET COUNT 99 X10^3/uL (150.0-450.0); RED BLOOD COUNT 4.82 X10^6/uL (3.5-5.4); RED CELL DISTRIBUTION WIDTH 14.4 % (11.6-16.5); WHITE BLOOD COUNT 14.2 X10^3/uL (3.6-10.0)
[2020-02-04 05:23] LABS: ALANINE AMINOTRANSFERASE 64 Units/L (12-78); ALBUMIN 2.5 g/dL (3.4-5.0); ALKALINE PHOSPHATASE 105 Units/L (46-116); ASPARTATE AMINO TRANSFERASE 55 Units/L (15-37); BLOOD UREA NITROGEN 31 mg/dL (7-18); CALCIUM 8.2 mg/dL (8.5-10.1); CARBON DIOXIDE 35.7 mmol/L (21-32); CHLORIDE 105 mmol/L (98-107); COR CA(FOR HYPOALB) 9.4 mg/dL (8.5-10.1); CREATININE 1.11 mg/dL (0.55-1.02); SODIUM 143 mmol/L (136-145); TOTAL PROTEIN 5.6 g/dL (6.4-8.2); eGFR NON BLACK RACES 52 (>60)
[2020-02-04] MEDS: SOLU-Medrol 40 MG VIAL IVP SCH ×3 (05:51→21:00)
[2020-02-04 06:01] LABS: PLATELET MORPHOLOGY COMMENT NORMAL (NORMAL)
[2020-02-04] MEDS ORDERED: K-DUR TAB 20 MEQ PO PRN (06:09)
[2020-02-04] MEDS ORDERED: POTASSIUM CHLORIDE LIQ 20 MEQ UDC PO PRN (06:09)
[2020-02-04] MEDS ORDERED: POTASSIUM CHL 40 MEQ/NS 0.45% 500 ML IV PRN (06:09)
[2020-02-04] MEDS ORDERED: MICRO K EXTEN CAP 10 MEQ PO PRN (06:09)
[2020-02-04] MEDS ORDERED: K-RIDER 10 MEQ/NS 100 ML 10 MEQ/100 ML BAG IV PRN (06:09)
[2020-02-04] MEDS ORDERED: POTASSIUM CHL 60 MEQ/NS 0.45% 500 ML IV PRN (06:09)
[2020-02-04] MEDS ORDERED: MAGNESIUM SULFATE 1 GRAM/100 mL PREMIX 1 GM/100 ML BAG IV PRN (06:09)
[2020-02-04] MEDS ORDERED: KLOR-CON PO PRN (06:09)
--- NOTE | 2020-02-04 06:19 | RAD ---
HISTORYFollow-up pneumoniaSTUDYChest AP [id number]/2020FINDINGSThe heart remains enlarged. Diffuse bilateral interstitial and some ground-glass and alveolar infiltrates are unchanged. The lungs are somewhat better inflated than on the prior examination. No pleural effusions are identified. Bony thorax is unremarkable.IMPRESSIONSomewhat improved aeration of the lungswhen compared with the prior examinationNo change cardiomegaly without congestive heart failureNo change diffuse bilateral interstitial and some ground-glass and alveolar infiltrates when compared to the prior examination.Electronically signed by: KATIE SILVA (Feb 04, 2020 06:18:13)
[2020-02-04] MEDS: PULMICORT NEB TX 0.5 MG NEB SCH ×3 (08:10→20:00)
[2020-02-04] MEDS: LASIX IVP SCH ×2 (08:49→20:43)
[2020-02-04] MEDS: ZINC SULFATE PO SCH (08:50)
[2020-02-04] MEDS: ROBITUSSIN DM PO SCH ×4 (08:50→20:43)
[2020-02-04] MEDS: ZESTRIL TAB 10 MG PO SCH (08:50)
[2020-02-04] MEDS: PROTONIX TAB 40 MG PO SCH (08:50)
[2020-02-04] MEDS: LOVENOX INJ 40 MG SYR SC SCH (08:52)
[2020-02-04] MEDS: VSL#3 PO SCH (08:52)
[2020-02-04] MEDS: MAGIC MOUTHWASH (Orig. Formula) MT SCH ×4 (08:53→20:43)
[2020-02-04] MEDS: XANAX PO PRN (08:56)
[2020-02-04 09:35] LABS: ABG BASE EXCESS 7.7 mmol/L (-2.0-2.0)
[2020-02-04 09:36] LABS: ABG HCO3 34.1 mmol/L (22-26)
[2020-02-04 09:37] LABS: ABG ALLEN TEST POS
[2020-02-04] MEDS: NS 1/2 1,000 ML IV 1,000 ML IV SCH (10:05)
--- NOTE | 2020-02-04 10:12 | PCM.PROG ---
Progress Note - Progress Note for Day of Date of Exam: 02/03/20 - Subjective Subjective: IS BEING TREATED FOR PNEUMONIA DUE TO COVID-19 AND HYPOXIA. TODAY, SHE IS ALERT AND ORIENTED, LYING IN BED ON MORNING ROUNDS. SHE CONTINUES WITH COMPLAINTS OF COUGH, SHORTNESS OF BREATH AND WEAKNESS THIS MORNING. SHE HAS AN INTERMITTENT COUGH. SHE REPORTS SLIGHT IMPROVEMENT IN SYMPT OMS TODAY. SHE REPORTS BEING BATHED AND WASHING HER HAIR THIS MORNING. STAFF REPORTS THAT SHE SAT ON THE SIDE OF THE BED FOR A WHILE THIS MORNING. AT ONE POINT, HER OXYGEN SATURATIONS REPORTEDLY FELL TO THE 50s WHILE ON THE SIDE OF THE BED WHILE SHE WAS ON HEATED HIGH FLOW OXYGEN. HER BIPAP WAS PLACED BACK ON HER AND SHE WAS REPOSITIONED IN THE BED. OXYGEN SATURATIONS RECOVERED TO THE 80s ON THE BIPAP. SATURATIONS CONTINUED IN THE 80s FOR MOST OF THE INTERACTIVE MEDIA DIRECTOR, ACCORDING TO STAFF. AFTER REPOSITIONING TO THE RIGHT SIDE, SATURATIONS INCREASED TO THE 90s. SHE IS CURRENTLY UTILIZING HEATED HIGH FLOW OXYGEN. WHILE EATING BREAKFAST THIS MORNING, SATURATIONS FELL TO 68% WHILE ON HEATED HIGH FLOW OXYGEN. SATURATIONS RECOVERED TO THE 80s. ON EXAMINATION, HEART IS REGULAR IN RATE AND RHYTHM. BILATERAL LUNGS ARE NOTED WITH TAFF REPORTS THAT PATIENT OFTEN REFUSES THE BIPAP AND REQUEST TO BE PLACED ON HEATED TIFFANIE FLOW OXYGEN. ON EXAMINATION, DIMINISHED LUNG SOUNDS THROUGHOUT. ABDOMEN IS ROUND, SOFT, AND NON- TENDER WITH NORMAL BOWEL SOUNDS NOTED IN ALL QUADRANTS. HIS VITALS THIS MORNING ARE: 98.5-114-40-76%HHF-123/79. LABS WERE OBTAINED. ABNORMAL LAB VALUES INCLUDE THE FOLLOWING: WBC 11.7, PLT COUNT 106, CARBON DIOXIDE 34.8, BUN 25, CREATININE 1.23, GLUCOSE 170, CALCIUM 8.1, FERRITIN 609, AST 42, CRP 6.60, TOTAL PROTEIN 5.6, ALBUMIN 2.4. ABG REVEALED: PH 7.390, PC02 59.0, PC02 68, HC03 35.7, 02 SAT 93, BASE EXCESS 8.8, FI02 100.0. A CHEST XRAY WAS OBTAINED THIS MORNING AND REVEALED: No change cardiomegaly without congestive heart failure. No change diffuse bilateral interstitial and alveolar infiltrates which could reflect bilateral pneumonia or edema. SHE IS CURRENTLY RECEIVING 1/2NS AT [facility], LEVAQUIN 500MG IV DAILY, REMDESIVIR 100MG IV DAILY, DUONEBS QID, PULMICORT NEBS BID, T USSIONEX 5ML PO Q12H PRN, ROBITUSSIN DM 10 ML PO QID, PROBIOTICS DAILY, SOLU- MEDROL 80MG IV Q8H, ZINC 220MG PO DAILY, FIORICET 1 TAB PO Q4H PRN, LOMOTIL 1 TAB PO QID PRN, XANAX 0.25MG PO BID PRN, LOVENOX 40MG SC DAILY. WE, AGAIN, DISCUSSED THE POSSIBLE NEED FOR INTUBATION AND VENTILLATION. PATIENT STATES, NOT RIGHT NOW, I WANT TO CONTINUE WITH WHAT WE ARE DOING. I DONT FEEL LIKE I AM GETTING WORSE. I WILL SPEAK WITH HER FAMILY AND UPDATE IN REGARDS TO HER CONDITION TODAY. OTHERWISE, WE PLAN TO FOLLOW UP WITH AM LABS AND CHEST XRAY AND CONTINUE TO MONITOR. - Past Medical Family Social History Past Med/Fam/Surg Hx: No changes since H&P Allergies: Allergies Penicillins Allergy (Verified 01/23/20 20:30) Sulfa (Sulfonamide Antibiotics) [SULFA] Allergy (Verified 01/23/20 20:30) - Review of Systems ROS: No change since H&P - Vital Signs and I&O's Vital Signs: Temperature 98.7 F Pulse Rate 126 Respiratory Rate 28 Blood Pressure 105/65 O2 Sat by Pulse Oximetry 89 Intake and Output: Intake & Output 02/01/20 02/02/20 02/03/20 02/04/20 12:59 11:59 11:59 11:59 Intake Total 1131 / 1131 2080 / 2080 Output Total 4900 / 4900 1250 / 1250 Balance -3769 / -3769 830 / 830 - Physical Exam Oriented: Normal Eyes: Normal Ear: Normal Nose: Normal Throat: Normal Respiratory: Diminished Cardiovascular: Normal : Normal Auscultation: Bowel Sounds: Normal Palpation: Normal Tenderness: Normal Skin: Normal Musculoskeletal: Normal Psychiatric: Normal Mood Description: Calm Affect: Normal Speech Pattern: Clear, Appropriate - Laboratory and Diagnostics Result Diagrams: 02/05/20 02:30 02/05/20 02:30 Labs: 01/23/20 19:25 Blood Blood Culture - Final 01/23/20 19:15 Blood Blood Culture - Final 01/23/20 21:18 Sputum - Expectorated Sputum Sputum Culture - Final 01/23/20 21:18 Sputum - Expectorated Sputum - Final Laboratory WBC 14.2 X10^3/uL (3.6-10.0) H 02/04/20 04:45 RBC 4.82 X10^6/uL (3.5-5.4) 02/04/20 04:45 Hgb 13.6 g/dL (12.0-16.0) 02/04/20 04:45 Hct 42.4 % (36.0-47.0) 02/04/20 04:45 MCV 88.1 fL (80.0-100.0) 02/04/20 04:45 MCH 28.3 pg (27.0-34.0) 02/04/20 04:45 MCHC 32.2 g/dL (33.0-35.0) L 02/04/20 04:45 RDW 14.4 % (11.6-16.5) 02/04/20 04:45 Plt Count 99 X10^3/uL (150.0-450.0) L 02/04/20 04:45 Plt Count Comment Decreased (ADEQUATE) A 02/04/20 04:45 MPV 8.2 fL (7.4-11.0) 02/04/20 04:45 Neut % (Auto) 95.1 % (42.0-75.0) H 02/04/20 04:45 Lymph % (Auto) 2.6 % (21.0-51.0) L 02/04/20 04:45 [place] % (Auto) 1.2 % (0.0-13.0) 02/04/20 04:45 Eos % (Auto) 1.0 % (0.9-2.9) 02/04/20 04:45 Baso % (Auto) 0.1 % (0.2-1.0) L 02/04/20 04:45 Neut # (Auto) 13.5 x10^3/uL (2.2-4.8) H 02/04/20 04:45 Lymph # (Auto) 0.4 X10^3/uL (1.3-2.9) L 02/04/20 04:45 [place] # (Auto) 0.2 x10^3/uL (0.3-0.8) L 02/04/20 04:45 Eos # (Auto) 0.1 x10^3/uL (0.0-0.2) 02/04/20 04:45 Baso # (Auto) 0.0 X10^3/uL (0.0-0.1) 02/04/20 04:45 Absolute Nucleated RBC 0.1 /100WBC 02/04/20 04:45 Total Counted 100 02/04/20 04:45 Neutrophils % (Manual) 96 % (39-76) H 02/04/20 04:45 Band Neutrophils % 3 % (0-10) 01/30/20 04:43 Lymphocytes % (Manual) 3 % (13-43) L 02/04/20 04:45 Monocytes % (Manual) 1 % (4-9) L 02/04/20 04:45 Nucleated RBCs 1 01/26/20 06:23 Plt Morphology Comment Normal (NORMAL) 02/04/20 04:45 RBC Morphology Normal (NORMAL) 02/04/20 04:45 Sample Site Rr 02/04/20 09:27 ABG pH 7.400 (7.35-7.45) 02/04/20 09:27 ABG pCO2 55.0 mmHg (35.0-45.0) H* 02/04/20 09:27 ABG pO2 56.0 mmHg (80.0-100.0) L 02/04/20 09:27 ABG HCO3 34.1 mmol/L (22-26) H* 02/04/20 09:27 ABG O2 Saturation 89.0 % (90-100) L 02/04/20 09:27 ABG Base Excess 7.7 mmol/L (-2.0-2.0) H 02/04/20 09:27 Durga Test Pos 02/04/20 09:27 A-a Gradient 588.0 mmHg 02/04/20 09:27 FiO2 100.0 02/04/20 09:27 Blood Gas Comments Pt jennifer well. cdn 02/04/20 09:27 Sodium 143 mmol/L (136-145) 02/04/20 04:45 Corrected Sodium TNP 02/04/20 04:45 Potassium 3.4 mmol/L (3.5-5.1) L 02/04/20 04:45 Chloride 105 mmol/L (98-107) 02/04/20 04:45 Carbon Dioxide 35.7 mmol/L (21-32) H 02/04/20 04:45 BUN 31 mg/dL (7-18) H 02/04/20 04:45 Creatinine 1.11 mg/dL (0.55-1.02) H 02/04/20 04:45 Est GFR (MDRD) Af Amer > 60 (>60) 02/04/20 04:45 Est GFR (MDRD) Non-Af 52 (>60) L 02/04/20 04:45 Glucose 104 mg/dL (65-99) H 02/04/20 04:45 Calcium 8.2 mg/dL (8.5-10.1) L 02/04/20 04:45 Corrected Calcium 9.4 mg/dL (8.5-10.1) 02/04/20 04:45 Magnesium 2.6 mg/dL (1.7-2.9) 02/04/20 04:45 Ferritin 609 ng/mL (8-252) H 02/03/20 04:50 Total Bilirubin 0.30 mg/dL (0.2-1.0) 02/04/20 04:45 AST 55 Units/L (15-37) H 02/04/20 04:45 ALT 64 Units/L (12-78) 02/04/20 04:45 Alkaline Phosphatase 105 Units/L (46-116) 02/04/20 04:45 Creatine Kinase 140 Units/L (26-192) 01/24/20 05:10 CK-MB (CK-2) 1.0 ng/mL (0-4.0) 01/24/20 05:10 CK/CKMB % Calc 0.7 % (<4) 01/24/20 05:10 Troponin I < 0.02 ng/mL (0-1.5) 01/24/20 05:10 C-Reactive Protein 6.60 mg/L (0-3.0) H 02/03/20 04:50 B-Natriuretic Peptide 18.3 pg/mL (0-79) 02/04/20 04:45 Total Protein 5.6 g/dL (6.4-8.2) L 02/04/20 04:45 Albumin 2.5 g/dL (3.4-5.0) L 02/04/20 04:45 Globulin 3.1 g/dL (2.5-4.5) 02/04/20 04:45 Albumin/Globulin Ratio 0.8 Ratio (1.1-2.1) L 02/04/20 04:45 Specimen Type Catherized urine 01/27/20 11:30 Urine Color Pale yellow (YELLOW) 01/27/20 11:30 Urine Appearance Clear (CLEAR) 01/27/20 11:30 Urine pH 6.0 (5.0 - 8.0) 01/27/20 11:30 Ur Specific [place] 1.020 (1.000-1.030) 01/27/20 11:30 Urine Protein Negative (NEGATIVE) 01/27/20 11:30 Urine Glucose (UA) Negative (NEGATIVE) 01/27/20 11:30 Urine Ketones Negative (NEGATIVE) 01/27/20 11:30 Urine Occult Blood Negative (NEGATIVE) 01/27/20 11:30 Urine Nitrite Negative (NEGATIVE) 01/27/20 11:30 Urine Bilirubin Negative (NEGATIVE) 01/27/20 11:30 Urine Urobilinogen Normal (NORMAL) 01/27/20 11:30 Ur Leukocyte Esterase Negative (NEGATIVE) 01/27/20 11:30 - Plan (1) Pneumonia Status: Acute Qualifiers: Pneumonia type: due to unspecified organism Laterality: unspecified laterality Lung location: unspecified part of lung Qualified Code(s): J18.9 - Pneumonia, unspecified organism Plan: 1/2NS AT [facility], LEVAQUIN 500MG IV DAILY, REMDESIVIR 100MG IV DAILY, DUONEBS QID, PULMICORT NEBS BID, TUSSIONEX 5ML PO Q12H PRN, ROBITUSSIN DM 10 ML PO QID, PROBIOTICS DAILY, SOLU-MEDROL 80MG IV Q8H, ZINC 220MG PO DAILY, MORPHINE 1-2MG IV Q4H PRN, LASIX 20MG IV X 2 DOSES. BIPAP AND HEATED HIGH FLOW (2) COVID-19 Status: Acute (3) Hypertension Status: Chronic Qualifiers: Hypertension type: essential hypertension Qualified Code(s): I10 - Essential (primary) hypertension
--- NOTE | 2020-02-04 10:27 | PCM.PROG ---
Progress Note - Progress Note for Day of Date of Exam: 02/04/20 - Subjective Subjective: IS BEING TREATED FOR PNEUMONIA DUE TO COVID-19 AND HYPOXIA. TODAY, SHE IS ALERT AND ORIENTED, LYING IN BED ON MORNING ROUNDS. SHE CONTINUES WITH COMPLAINTS SHORTNESS OF BREATH AND WEAKNESS THIS MORNING. SHE CONTINUES WITH AN INTERMITTENT COUGH. SHE REPORTS THAT SHORTNESS OF BREATH HAS BEEN WORSE THIS MORNING AND THROUGHOUT THE NIGHT. SHE HAS BEEN UTILIZING THE BIPAP AND HEATED HIGH FLOW OXYGEN. HER OXYGEN SATURATIONS HAVE REMAINED IN THE 80s THROUGHOUT THE NIGHT. ON EXAMINATION, HEART IS REGULAR IN RATE AND RHYTHM. BILATERAL LUNGS ARE NOTED WITH DIMINISHED LUNG SOUNDS THROUGHOUT. ABDOMEN IS ROUND, SOFT, AND NON-TENDER WITH NORMAL BOWEL SOUNDS NOTED IN ALL QUADRANTS. HIS VITALS THIS MORNING ARE: 98.7-104-27-89%-126/78. LABS WERE OBTAINED. ABNORMAL LAB VALUES INCLUDE THE FOLLOWING: WBC 14.2, PLT COUNT 99, POTASSIUM 3.4, CARBON DIOXIDE 35.7, BUN 31, CREATININE 1.11, GLUCOSE 104, CALCIUM 8.2, AST 55, TOTAL PROTEIN 5.6, ALBUMIN 2.5. ABG REVEALED: PH 7.400, PC02 55, P02 56.0, HC03 34.1, 02 SAT 89.0, BASE EXCESS 7.7, FI02 100.0. A CHEST XRAY WAS OBTAINED THIS MORNING AND REVEALED: Somewhat improved aeration of the Lungs when compared with the prior examination. No change cardiomegaly without congestive heart failure. No change diffuse bilateral interstitial and some ground-glass and alveolar infiltrates when compared to the prior examination. SHE IS CURRENTLY RECEIVING 1/2NS AT [facility], LEVAQUIN 500MG IV DAILY, REMDESIVIR 100MG IV DAILY, DUONEBS QID, PULMICORT NEBS BID, TUSSIONEX 5ML PO Q12H PRN, ROBITUSSIN DM 10 ML PO QID, PROBIOTICS DAILY, SOLU-MEDROL 80MG IV Q8H, ZINC 220MG PO DAILY, FIORICET 1 TAB PO Q4H PRN, MORPHINE 1-2MG IV Q4H PRN, LASIX 20MG IV BID, LOMOTIL 1 TAB PO QID PRN, XANAX 0.25MG PO BID PRN, LOVENOX 40MG SC DAILY. PATIENT CONTINUES TO REFUSE INTUBATION. WE WILL ORDER A D-DIMER OFF OF HER BLOOD THAT WAS TAKEN EARLIER IN THE MORNING. WE WILL ALSO ORDER AN ECHOCARDIOGRAM AND A CHEST CTA TO RULE OUT PULMONARY EMBOLI. WE WILL ENCOURAGE THE USE OF THE BIPAP THROUGHOUT THE DAY MUCH SHE CAN TOLERATE. OTHERWISE, WE PLAN TO FOLLOW UP WITH AM LABS AND CHEST XRAY AND CONTINUE TO MONITOR. - Past Medical Family Social History Past Med/Fam/Surg Hx: No changes since H&P Allergies: Allergies Penicillins Allergy (Verified 01/23/20 20:30) Sulfa (Sulfonamide Antibiotics) [SULFA] Allergy (Verified 01/23/20 20:30) - Review of Systems ROS: No change since H&P - Vital Signs and I&O's Vital Signs: Temperature 98.7 F Pulse Rate 102 Respiratory Rate 27 Blood Pressure 102/63 O2 Sat by Pulse Oximetry 88 Intake and Output: Intake & Output 02/01/20 02/02/20 02/03/20 02/04/20 12:59 11:59 11:59 11:59 Intake Total 1131 / 1131 2080 / 2080 Output Total 4900 / 4900 1250 / 1250 Balance -3769 / -3769 830 / 830 - Physical Exam Oriented: Normal Eyes: Normal Ear: Normal Nose: Normal Throat: Normal Respiratory: Diminished Cardiovascular: Normal : Normal Auscultation: Bowel Sounds: Normal Palpation: Normal Tenderness: Normal Skin: Normal Musculoskeletal: Normal Psychiatric: Normal Mood Description: Calm Affect: Normal Speech Pattern: Clear, Appropriate - Laboratory and Diagnostics Result Diagrams: 02/05/20 02:30 02/05/20 02:30 Labs: 01/23/20 19:25 Blood Blood Culture - Final 01/23/20 19:15 Blood Blood Culture - Final 01/23/20 21:18 Sputum - Expectorated Sputum Sputum Culture - Final 01/23/20 21:18 Sputum - Expectorated Sputum - Final Laboratory WBC 14.2 X10^3/uL (3.6-10.0) H 02/04/20 04:45 RBC 4.82 X10^6/uL (3.5-5.4) 02/04/20 04:45 Hgb 13.6 g/dL (12.0-16.0) 02/04/20 04:45 Hct 42.4 % (36.0-47.0) 02/04/20 04:45 MCV 88.1 fL (80.0-100.0) 02/04/20 04:45 MCH 28.3 pg (27.0-34.0) 02/04/20 04:45 MCHC 32.2 g/dL (33.0-35.0) L 02/04/20 04:45 RDW 14.4 % (11.6-16.5) 02/04/20 04:45 Plt Count 99 X10^3/uL (150.0-450.0) L 02/04/20 04:45 Plt Count Comment Decreased (ADEQUATE) A 02/04/20 04:45 MPV 8.2 fL (7.4-11.0) 02/04/20 04:45 Neut % (Auto) 95.1 % (42.0-75.0) H 02/04/20 04:45 Lymph % (Auto) 2.6 % (21.0-51.0) L 02/04/20 04:45 [place] % (Auto) 1.2 % (0.0-13.0) 02/04/20 04:45 Eos % (Auto) 1.0 % (0.9-2.9) 02/04/20 04:45 Baso % (Auto) 0.1 % (0.2-1.0) L 02/04/20 04:45 Neut # (Auto) 13.5 x10^3/uL (2.2-4.8) H 02/04/20 04:45 Lymph # (Auto) 0.4 X10^3/uL (1.3-2.9) L 02/04/20 04:45 [place] # (Auto) 0.2 x10^3/uL (0.3-0.8) L 02/04/20 04:45 Eos # (Auto) 0.1 x10^3/uL (0.0-0.2) 02/04/20 04:45 Baso # (Auto) 0.0 X10^3/uL (0.0-0.1) 02/04/20 04:45 Absolute Nucleated RBC 0.1 /100WBC 02/04/20 04:45 Total Counted 100 02/04/20 04:45 Neutrophils % (Manual) 96 % (39-76) H 02/04/20 04:45 Band Neutrophils % 3 % (0-10) 01/30/20 04:43 Lymphocytes % (Manual) 3 % (13-43) L 02/04/20 04:45 Monocytes % (Manual) 1 % (4-9) L 02/04/20 04:45 Nucleated RBCs 1 01/26/20 06:23 Plt Morphology Comment Normal (NORMAL) 02/04/20 04:45 RBC Morphology Normal (NORMAL) 02/04/20 04:45 Sample Site Rr 02/04/20 09:27 ABG pH 7.400 (7.35-7.45) 02/04/20 09:27 ABG pCO2 55.0 mmHg (35.0-45.0) H* 02/04/20 09:27 ABG pO2 56.0 mmHg (80.0-100.0) L 02/04/20 09:27 ABG HCO3 34.1 mmol/L (22-26) H* 02/04/20 09:27 ABG O2 Saturation 89.0 % (90-100) L 02/04/20 09:27 ABG Base Excess 7.7 mmol/L (-2.0-2.0) H 02/04/20 09:27 Durga Test Pos 02/04/20 09:27 A-a Gradient 588.0 mmHg 02/04/20 09:27 FiO2 100.0 02/04/20 09:27 Blood Gas Comments Pt jennifer well. cdn 02/04/20 09:27 Sodium 143 mmol/L (136-145) 02/04/20 04:45 Corrected Sodium TNP 02/04/20 04:45 Potassium 3.4 mmol/L (3.5-5.1) L 02/04/20 04:45 Chloride 105 mmol/L (98-107) 02/04/20 04:45 Carbon Dioxide 35.7 mmol/L (21-32) H 02/04/20 04:45 BUN 31 mg/dL (7-18) H 02/04/20 04:45 Creatinine 1.11 mg/dL (0.55-1.02) H 02/04/20 04:45 Est GFR (MDRD) Af Amer > 60 (>60) 02/04/20 04:45 Est GFR (MDRD) Non-Af 52 (>60) L 02/04/20 04:45 Glucose 104 mg/dL (65-99) H 02/04/20 04:45 Calcium 8.2 mg/dL (8.5-10.1) L 02/04/20 04:45 Corrected Calcium 9.4 mg/dL (8.5-10.1) 02/04/20 04:45 Magnesium 2.6 mg/dL (1.7-2.9) 02/04/20 04:45 Ferritin 609 ng/mL (8-252) H 02/03/20 04:50 Total Bilirubin 0.30 mg/dL (0.2-1.0) 02/04/20 04:45 AST 55 Units/L (15-37) H 02/04/20 04:45 ALT 64 Units/L (12-78) 02/04/20 04:45 Alkaline Phosphatase 105 Units/L (46-116) 02/04/20 04:45 Creatine Kinase 140 Units/L (26-192) 01/24/20 05:10 CK-MB (CK-2) 1.0 ng/mL (0-4.0) 01/24/20 05:10 CK/CKMB % Calc 0.7 % (<4) 01/24/20 05:10 Troponin I < 0.02 ng/mL (0-1.5) 01/24/20 05:10 C-Reactive Protein 6.60 mg/L (0-3.0) H 02/03/20 04:50 B-Natriuretic Peptide 18.3 pg/mL (0-79) 02/04/20 04:45 Total Protein 5.6 g/dL (6.4-8.2) L 02/04/20 04:45 Albumin 2.5 g/dL (3.4-5.0) L 02/04/20 04:45 Globulin 3.1 g/dL (2.5-4.5) 02/04/20 04:45 Albumin/Globulin Ratio 0.8 Ratio (1.1-2.1) L 02/04/20 04:45 Specimen Type Catherized urine 01/27/20 11:30 Urine Color Pale yellow (YELLOW) 01/27/20 11:30 Urine Appearance Clear (CLEAR) 01/27/20 11:30 Urine pH 6.0 (5.0 - 8.0) 01/27/20 11:30 Ur Specific [place] 1.020 (1.000-1.030) 01/27/20 11:30 Urine Protein Negative (NEGATIVE) 01/27/20 11:30 Urine Glucose (UA) Negative (NEGATIVE) 01/27/20 11:30 Urine Ketones Negative (NEGATIVE) 01/27/20 11:30 Urine Occult Blood Negative (NEGATIVE) 01/27/20 11:30 Urine Nitrite Negative (NEGATIVE) 01/27/20 11:30 Urine Bilirubin Negative (NEGATIVE) 01/27/20 11:30 Urine Urobilinogen Normal (NORMAL) 01/27/20 11:30 Ur Leukocyte Esterase Negative (NEGATIVE) 01/27/20 11:30 - Plan (1) Pneumonia Status: Acute Qualifiers: Pneumonia type: due to unspecified organism Laterality: unspecified laterality Lung location: unspecified part of lung Qualified Code(s): J18.9 - Pneumonia, unspecified organism Plan: 1/2NS AT [facility], LEVAQUIN 500MG IV DAILY, DUONEBS QID, PULMICORT NEBS BID, TUSSIONEX 5ML PO Q12H PRN, ROBITUSSIN DM 10 ML PO QID, PROBIOTICS DAILY, SOLU- MEDROL 80MG IV Q8H, ZINC 220MG PO DAILY, MORPHINE 1-2MG IV Q4H PRN, LASIX 20MG IV BID. BIPAP AND HEATED HIGH FLOW OXYGEN (2) COVID-19 Status: Acute (3) Hypertension Status: Chronic Qualifiers: Hypertension type: essential hypertension Qualified Code(s): I10 - Essential (primary) hypertension
[2020-02-04] MEDS ORDERED: NS 250 ML IV 250 ML IV ONE (11:52)
--- NOTE | 2020-02-04 12:08 | CT ---
HISTORYCOVID + ELEAVATED DDIMERSTUDYCTA CHESTCOMPARISONNoneTECHNIQUEMultiple axial images of the chest were obtained from the thoracic inlet to the upper abdomen after the administration of IV contrast. 3D reconstructions utilizing axial MIPS imaging was performed and reviewed. Dose reduction techniques including Automated Exposure Control (AEC) and adjustment of mA and kV were utilized.FINDINGSThe thyroid gland is unremarkable. There is moderate calcified plaque throughout the aorta which is well opacified and normal caliber with no aneurysm or dissection. The pulmonary arteries are well opacified with no filling defect or vessel cutoff. The adrenals are normal. The visualized upper abdomen is unremarkable. There are several small lymph nodes in the AP window and pretracheal region measuring up to 1.4 cm. There is a 1.7 cm subcarinal lymph node. The adrenals are normal and the visualized upper abdomen is unremarkable. There are small linear filling defects in the pulmonary arteries to the left lower lobe anteriorly with good flow distally. There is a small linear filling defect in the pulmonary artery to the right middle lobe anteriorly with flow seen distally. There are moderate ground-glass opacities along the upper lobes extending into the perihilar regions and throughout both lung bases with mild air bronchograms throughout. No effusion is seen. There is no pulmonary nodule or mass. The bones are intact.IMPRESSIONSmall acute pulmonary emboli scattered in the distal pulmonary arteries to the left lower lobe and right middle lobe.Moderate ground-glass opacities seen diffusely throughout both lungs with air bronchograms along the lung bases. This could represent multisegmental bronchopneumonia and/or pulmonary edema vs less likely pulmonary hemorrhage.Mild mediastinal adenopathy. Recommend follow-up.Moderately atherosclerotic thoracic aorta with no aneurysm or dissection.Electronically signed by: BAYLEE RAZO (Feb 04, 2020 12:07:10)
[2020-02-04] MEDS ORDERED: HEPARIN SODIUM IN D5W 25,000 UNITS/500 ML BAG IV PRN (13:16)
[2020-02-04] MEDS ORDERED: HEPARIN SODIUM IN D5W 25,000 UNITS/500 ML BAG IV ONE (13:25)
[2020-02-04] MEDS ORDERED: HEPARIN SODIUM INJ 5000 UNITS ONE (13:25)
[2020-02-04] MEDS ORDERED: HEPARIN SODIUM INJ 5000 UNITS IVP ONE (13:30)
[2020-02-04] MEDS: LUMIGAN OPHTH AFFEYE SCH (20:43)
[2020-02-04] MEDS: REMDESIVIR 100 MG in NS 250 ML IV 250 ML IV SCH (20:43)
[2020-02-04 22:57] LABS: ABG BASE EXCESS 8.9 mmol/L (-2.0-2.0)
[2020-02-04 22:58] LABS: ABG ALLEN TEST POS; ABG HCO3 34.6 mmol/L (22-26)
[2020-02-04] MEDS ORDERED: LASIX IVP ONE ×2 (23:15→23:18)
[2020-02-05] MEDS: LEVAQUIN PREMIX IV 500 MG 500 MG/100 ML BAG IV SCH (00:24)
[2020-02-05 02:47] LABS: BASOPHILS # (AUTO) 0.1 X10^3/uL (0.0-0.1); BASOPHILS % (AUTO) 0.4 % (0.2-1.0); HEMATOCRIT 44.1 % (36.0-47.0); HEMOGLOBIN 14.2 g/dL (12.0-16.0); LYMPHOCYTES # (AUTO) 0.2 X10^3/uL (1.3-2.9); LYMPHOCYTES % (AUTO) 1.1 % (21.0-51.0); MEAN CORPUSCULAR HEMOGLOBIN 28.5 pg (27.0-34.0); MEAN CORPUSCULAR HGB CONC 32.3 g/dL (33.0-35.0); MEAN CORPUSCULAR VOLUME 88.2 fL (80.0-100.0); MEAN PLATELET VOLUME 8.7 fL (7.4-11.0); MONOCYTES # (AUTO) 0.1 x10^3/uL (0.3-0.8); MONOCYTES % (AUTO) 0.9 % (0.0-13.0); NEUTROPHILS # (AUTO) 14.8 x10^3/uL (2.2-4.8); NEUTROPHILS % (AUTO) 97.6 % (42.0-75.0); PLATELET COUNT 101 X10^3/uL (150.0-450.0); RED CELL DISTRIBUTION WIDTH 14.4 % (11.6-16.5); WHITE BLOOD COUNT 15.2 X10^3/uL (3.6-10.0)
[2020-02-05 02:53] LABS: ALBUMIN 2.8 g/dL (3.4-5.0); CALCIUM 8.2 mg/dL (8.5-10.1); COR CA(FOR HYPOALB) 9.2 mg/dL (8.5-10.1); CREATININE 1.27 mg/dL (0.55-1.02); TOTAL PROTEIN 6.4 g/dL (6.4-8.2)
[2020-02-05 03:12] LABS: PLATELET MORPHOLOGY COMMENT NORMAL (NORMAL)
[2020-02-05] MEDS: NS 1/2 1,000 ML IV 1,000 ML IV SCH ×3 (04:26→16:26)
[2020-02-05] MEDS: SOLU-Medrol 40 MG VIAL IVP SCH ×2 (05:08→16:22)
[2020-02-05] MEDS: MORPHINE SULFATE INJ 2 MG INJ IVP PRN (05:24)
[2020-02-05 05:25] LABS: ABG BASE EXCESS 11.3 mmol/L (-2.0-2.0)
[2020-02-05 05:26] LABS: ABG ALLEN TEST POS; ABG HCO3 37.4 mmol/L (22-26)
--- NOTE | 2020-02-05 07:05 | RAD ---
HISTORYPNEUMONIASTUDYCHEST, 1 [id number]/2020TECHNIQUEAP view of the chestFINDINGSCardiac silhouette is stably enlarged. Stable appearance of bilateral hazy and interstitial opacities throughout each lung. Thickened right minor fissure. No large pleural effusion. No pneumothorax.IMPRESSIONNo significant change.Electronically signed by: Lui Connelly (Feb 05, 2020 07:04:01)
[2020-02-05] MEDS ORDERED: NS 1/2 1,000 ML IV 1,000 ML IV ONE (08:31)
[2020-02-05] MEDS: MAGIC MOUTHWASH (Orig. Formula) MT SCH ×2 (09:00→16:22)
[2020-02-05] MEDS: ZINC SULFATE PO SCH (09:00)
[2020-02-05] MEDS: VSL#3 PO SCH (09:00)
[2020-02-05] MEDS: ROBITUSSIN DM PO SCH ×2 (09:00→16:23)
[2020-02-05] MEDS: ZESTRIL TAB 10 MG PO SCH (09:00)
[2020-02-05] MEDS: LASIX IVP SCH (09:00)
[2020-02-05] MEDS: PROTONIX TAB 40 MG PO SCH (09:00)
[2020-02-05] MEDS ORDERED: HEPARIN SODIUM INJ 5000 UNITS IVP ONE (09:10)
[2020-02-05] MEDS ORDERED: HEPARIN SODIUM INJ 5000 UNITS ONE (09:12)
[2020-02-05] MEDS: DUONEB 0.5 MG/3 MG (3 mL) NEB SCH (09:25)
[2020-02-05] MEDS: PULMICORT NEB TX 0.5 MG NEB SCH (09:25)
[2020-02-05] MEDS ORDERED: DIPRIVAN PREMIX 1 GRAM IV 1,000 MG/100 ML VIAL IV PRN (10:28)
[2020-02-05] MEDS ORDERED: NS 500 ML IV 500 ML IV ONE (11:18)
[2020-02-05 11:40] LABS: ABG BASE EXCESS 6.2 mmol/L (-2.0-2.0)
[2020-02-05 11:47] LABS: ABG HCO3 31.8 mmol/L (22-26)
[2020-02-05 11:48] LABS: ABG ALLEN TEST POS
--- NOTE | 2020-02-05 11:59 | RAD ---
HISTORYCENTRAL LINE PLACEMENTSTUDYCHEST, 1 VIEWCOMPARISONSame day radiographTECHNIQUEAP view of the chest 2 imagesFINDINGSET tube projects 2.8 cm from the dinesh. Right IJ central line in good position. Mildly worse appearance of bilateral airspace disease. Cardiac and mediastinal contours appear similar. No pneumothorax. No large pleural effusion.IMPRESSIONConsider 1 cm retraction ET tube. Worsened airspace disease.Electronically signed by: Lui Connelly (Feb 05, 2020 11:58:13)
[2020-02-05] MEDS ORDERED: NS 1,000 ML IV 1,000 ML IV ONE (12:05)
[2020-02-05] MEDS ORDERED: NS 1,000 ML IV 1,000 ML ONE (12:07)
[2020-02-05 12:24] LABS: ABG BASE EXCESS 5.8 mmol/L (-2.0-2.0)
[2020-02-05 12:25] LABS: ABG HCO3 30.6 mmol/L (22-26)
[2020-02-05] MEDS ORDERED: DOPAMINE IV PREMIX 400 MG/250 ML 400 MG/250 ML BAG IV ONE (12:35)
--- NOTE | 2020-02-05 12:41 | DR.UPDATE ---
H&P Update History and Physical Update: History and Physical reviewed and patient examined. Changes noted: NO Yes with the following:agree with H&P. Will intubate and place invasive lines. H&P Reviewed: Yes Patient was examined?: Yes Procedures (ALL) - Arterial Line Consent obtained: verbal consent Time out performed: Yes Size(gauge): 20 Technique used: guided wire technique (with ultrasound guidance) Post-procedure: dry sterile dressing placed Patient tolerated procedure: Yes Site: Left, radial - Central Line Placement PCM.CLCO: written consent Time out performed: Yes Patient placed pm monitor/pulse ox: Yes MD prep: mask, gown, gloves, other Centrial line prep: chlorhexidine scrub, sterile drapes applied Ultrasound used for placement: Yes (right ij easily id'd via u/s) Central line lumen ininserted: triple Post procedure: sutured in place, good blood return, all ports aspirated, flushed,capped, sterile dressing applied Post procedure xray: tip oc catheter in good position, no pneumothorax seen Patient tolerated procedure: Yes Complications: none - Intubation Time out performed: Yes Sedative: other (propofol 150mg) paralytic: succinylchline (100mg. norcuron 10mg after return of spontaneous respirations) Laryngoscope: fiber optic video scope Assist device used: fiber optic device (glidescope 3. grade 1 view.) ET tube size: 7.5 Tube secured depth: 20 Tube secured location: teeth (gums) Tube placement confirmation: visualized tube passing through cords, equal breath sounds bilaterally, no breath sounds over epigastrium, comfirmation by capnometer Patient tolerated procedure: Yes Intubation complications: none
[2020-02-05] MEDS ORDERED: VERSED 100 MG in NS 100 ML IV 80 ML IV SCH (13:00)
--- NOTE | 2020-02-05 13:06 | RAD ---
HISTORYNG TUBE PLACEMENT, REPOSITIONING OF ET TUBESTUDYCHEST, 1 VIEWCOMPARISONChest film February 05, 2020 at 11 11 a.m..FINDINGSThe trachea is midline. The ET tube is in good position with the tip located 4.8 cm above the dinesh. The NG tube tip is not visualized but it lies well below the diaphragm and both the tip and the side hole lie below the diaphragm within the stomach. Note is made of air bronchograms in the left lower lobe retrocardiac region. Diffuse interstitial infiltrates are seen unchanged from the film earlier at 11:11 a.m. on February 04. The cardiac silhouette is unremarkable . The lungs are clear without focal infiltrate or effusion. The bony thorax is unremarkable.IMPRESSIONNG tube in ET tube are in good position with the ETT tip 4.8 cm above the dinesh. A right internal jugular line is also in place tip in the right atrium. Airspace disease bilaterally is again noted with air bronchograms in the left lower lobe retrocardiac region consistent with worsening airspace disease at this location.Electronically signed by: DONTRELL WILSON (Feb 05, 2020 13:03:53)
[2020-02-05] MEDS ORDERED: DOPAMINE IV PREMIX 400 MG/250 ML 400 MG/250 ML BAG IV PRN (16:25)
[2020-02-05 16:49] VITALS: BP 142/68
== END 2020-02-05 16:00 | disposition short-term general hospital (02) ==
LOC: ICU 18:30
PROVIDERS: ADMIT Internal Medicine; ATTEND Internal Medicine